=== PATIENT | male | born 1945 | race Caucasian/White ===

== ENCOUNTER 2017-06-02 12:16 | Inpatient (IN) ==
[2017-06-02] MEDS ORDERED: SALINE FLUSH 10ml SYRINGE IVF PRN (12:30)
--- NOTE | 2017-06-02 12:37 | Emergency Department Report ---
General Adult HPI - General Chief complaint: Medical Emergency <Juan Manning 06/02/17 15:07> Stated complaint: poss high bp <Juan Manning Monika 06/02/17 15:07> Time Seen by Provider: 06/02/17 12:19 <Juan Manning Monika 06/02/17 15:07> Source: patient <Lily Fairbanks 06/02/17 12:40> Mode of arrival: ambulatory <Lily Fairbanks 06/02/17 12:40> Limitations: no limitations <Lily Fairbanks 06/02/17 12:40> - History of Present Illness HPI narrative: Pt presents with concerns that his blood pressure has been high. Pt had been driving earlier today and noticed he could see the road and other vehicles but could not read the speedometer. Later while at work pt had difficulty remebering how to perform well known tasks. Pt states he did have a DOMINGO which resolved on its own. He does have a cardiac history with stents placed just 3 months ago and is also a NIIDM Initial BG 36 <Lily Fairbanks 06/02/17 13:09> Onset (ago): hour(s) <Lily Fairbanks Monika 06/02/17 12:40> Consistency: intermittent <Lily Fairbanks 06/02/17 12:40> Treatments prior to arrival: none <Lily Fairbanks 06/02/17 12:40> - Related Data Home Medications Medication Instructions Recorded Confirmed Aspirin [Aspir 81] 81 mg PO HS #0 11/14/09 06/02/17 Lisinopril 40 mg PO DAILY #0 11/14/09 06/02/17 glipiZIDE [Glucotrol] 5 mg PO DAILY #0 11/14/09 06/02/17 Amiodarone HCl [Pacerone] 100 mg PO HS 06/02/17 06/02/17 Atorvastatin [Lipitor] 20 mg PO DAILY 06/02/17 06/02/17 Clotrimazole/Betamethasone Dip 30 ml TP PRN 06/02/17 06/02/17 [Clotrimazole-Betamethasone Lot] Diclofenac Sodium 50 mg PO PRN 06/02/17 06/02/17 Exenatide Weekly Inj [Bydureon] 2 mg SQ Q7D 06/02/17 06/02/17 Furosemide [Lasix] 20 mg PO DAILY 06/02/17 06/02/17 Metformin [Glucophage] 1,000 mg PO BID 06/02/17 06/02/17 Metoprolol Tartrate [Lopressor] 50 mg PO BID 06/02/17 06/02/17 Nisoldipine [Sular] 20 mg PO HS 06/02/17 06/02/17 Tamsulosin [Flomax] 0.4 mg PO HS 06/02/17 06/02/17 Ticagrelor [Brilinta] 90 mg PO BID 06/02/17 06/02/17 <Juan Manning 06/02/17 15:07> Allergies Allergy/AdvReac Type Severity Reaction Status Date / Time No Known Drug Allergies Allergy Unknown Verified 06/02/17 12:46 <Juan Manning 06/02/17 15:07> Review of Systems All systems: reviewed and negative except as stated <Lily Fairbanks 12:40> Constitutional: Denies: weakness <Lily Fairbanks 06/02/17 12:40> Cardiovascular: Reports: other (pedal edema). Denies: chest pain, dyspnea on exertion <Lily Fairbanks 06/02/17 12:40> Respiratory: Denies: cough <Lily Fairbanks 06/02/17 12:40> Gastrointestinal: Denies: nausea, vomiting <Lily Fairbanks 06/02/17 12: 40> Neurological: Reports: headache, confusion <Lily Fairbanks 06/02/17 12: 40> PFS Patient Stated Medical History Macular Degeneration Yes Cardiac Arrhythmia Yes Hypertension Yes Diabetes Mellitus Type 2 Yes Hx Benign Prostatic Yes Hyperplasia Hx Renal Disease Yes <Juan Manning 06/02/17 15:07> Patient Stated Medical History Macular Degeneration Yes Cardiac Arrhythmia Yes Hypertension Yes Diabetes Mellitus Type 2 Yes Hx Benign Prostatic Yes Hyperplasia Hx Renal Disease Yes <Lily Fairbanks 06/02/17 13:09> Physical Exam - Limitations Limitations: no limitations <Lily Fairbanks 06/02/17 12:40> - General General appearance: alert, in no apparent distress <Lily Fairbanks 06/02 12:40> - Normal Exams: Head:: Normocephalic without trauma <Lily Fairbanks 06/02/17 12:40> Eyes:: Pupils are PERRLA w/ EOMI <Lily Fairbanks 06/02/17 12:40> Neck:: Full range of motion <Lily Fairbanks 06/02/17 12:40> Chest/Respirations:: Clear all ochoa, with good airflow, and symmetry bilaterally <Lily Fairbanks 06/02/17 12:40> Cardiovascular:: Regular rate and rhythm (tachy), Pulses 2+ all extremities ( trace pedal edema roseann) <Lily Fairbanks 06/02/17 12:40> Abdomen:: Bowel sounds positive, soft, non-tender, non-distended <Lily Fairbanks 06/02/17 12:40> Musculoskeletal:: No tenderness, or deformity noted, good range of motion, all extremities <Lily Fairbanks 06/02/17 12:40> Integumentary:: No rashes <Lily Fairbanks 06/02/17 12:40> Neurological:: Patient is alert, and oriented <Lily Fairbanks 06/02/17 12:40> Psychiatric:: Patient exhibits, appropriate attention, emotion and affect < Lily Fairbanks 06/02/17 12:40> Course - Consultations Consultation #1: Dr Goldstein <Lily Fairbanks 06/02/17 14:04> Time: 13:40 <Lily Fairbanks 06/02/17 14:04> Vital Signs Temperature 98.4 F 06/02/17 12:18 Pulse Rate 124 H 06/02/17 12:18 Respiratory Rate 18 06/02/17 12:18 Blood Pressure 111/59 06/02/17 12:18 Pulse Oximetry 98 06/02/17 12:18 Temperature 97.3 F 06/02/17 14:35 Pulse Rate 110 H 06/02/17 14:35 Respiratory Rate 16 06/02/17 14:35 Blood Pressure 112/74 06/02/17 14:35 Pulse Oximetry 100 06/02/17 14:35 <Juan Manning - 06/02/17 15:07> Vital Signs Temperature 98.4 F 06/02/17 12:18 Pulse Rate 124 H 06/02/17 12:18 Respiratory Rate 18 06/02/17 12:18 Blood Pressure 111/59 06/02/17 12:18 Pulse Oximetry 98 06/02/17 12:18 Temperature 97.3 F 06/02/17 14:35 Pulse Rate 110 H 06/02/17 14:35 Respiratory Rate 16 06/02/17 14:35 Blood Pressure 112/74 06/02/17 14:35 Pulse Oximetry 100 06/02/17 14:35 <Lily Fairbanks 06/02/17 13:09> Medical Decision Making - [facility] Narrative Medical decision making narrative: Patient with history of chronic intermittent visual difficulties. Patient denies any pain or discomfort. There is no chest pain or shortness of breath. Patient is given a meal and one half amp of D50 intravenously with improvement of blood glucose. Patient is asymptomatic at time of admission to the hospital. Patient is admitted to the hospital in improved condition. No further orders from accepting physician is in agreement with the current plan of management. Patient is in agreement with the current plan of management. <Juan Manning - 06/02/17 15:07> On arrival pt BG 36 pt alert with controlled airway PO given. Repeat BG 56 pt given 1/2 amp D50W, with resulting BG of 99. Pt remains in atrial flutter per telemetry all other vital signs stable. Pt denies secondary symptoms of Flutter. Lab review reveals anemia and renal failure which is consistent with his history. BNP and TropI negative. Assessment and diagnostic findings discussed with Dr Goldstein. Pt to be admitted to medical. Admission discussed with pt and <Lily Fairbanks 06/02/17 14:04> - Differential Diagnosis CVA, Hypoglycemia, Hyperglycemia, TIA <Lily Fairbanks 06/02/17 12:40> - Lab Data Lab results reviewed: Yes: I reviewed the patient's lab results. <Lily Fairbanks 06/02/17 14:04> Result diagrams: 06/02/17 12:45 06/02/17 12:45 <Juan Manning - 06/02/17 15:07> Lab Results 06/02/17 06/02/17 06/02/17 Range/Units 12:45 12:45 13:20 WBC 11.5 H (4.5-11.0) T/MM3 RBC 3.43 L (4.50-5.90) M/MM3 Hgb 9.6 L (13.5-17.5) GM/DL Hct 29.7 L (41-53) % MCV 86.6 (80-100) UM3 MCH 28.0 (26-34) UUG MCHC 32.3 (31-37) GM/DL RDW Std Deviation 49.8 (36.9-50.2) FL Plt Count 272 (130-400) T/MM3 MPV 10.3 (9.4-12.4) UM3 Immature Gran % (Auto) Not performed Neut % (Auto) Not performed Lymph % (Auto) Not performed [place] % (Auto) Not performed Eos % (Auto) Not performed Baso % (Auto) Not performed Neut # Not performed Lymph # Not performed [place] # Not performed Eos # Not performed Baso # Not performed Abs Immat Gran (auto) Not performed Neutrophils % (Manual) 76.0 H (33-66) % Band Neutrophils % 3.0 (0-6) % Lymphocytes % (Manual) 15.0 L (23-45) % Monocytes % (Manual) 6.0 (0-9.0) % Neutrophils # (Manual) 8.7 H (1.8-7.7) T/MM3 Band Neutrophils # 0.3 T/MM3 Lymphocytes # (Manual) 1.7 (1-4.8) T/MM3 Monocytes # (Manual) 0.7 (0-0.8) T/MM3 RBC Morph Comment Normal Turbidity < 20 (0-20) Sodium 145 H (134-144) MEQ/L Potassium 4.2 (3.6-5) MEQ/L Chloride 113 H (98-107) MEQ/L Carbon Dioxide 19 L (22-30) MEQ/L Anion Gap 13 (5-15) MEQ/L BUN 25.0 H (9-20) MG/DL Creatinine 2.0 H (0.8-1.5) MG/DL GFR Calculation 33 BUN/Creatinine Ratio 13 (6-26) RATIO Glucose 32 L* (75-110) MG/DL Calculated Osmolality 279 (261-280) MOSM/KG Calcium 9.3 (8.4-10.2) MG/DL Total Bilirubin 0.50 (0.20-1.30) MG/DL Icterus Index < 2 (0-7) AST 21 (17-59) U/L ALT 32 (21-72) U/L Alkaline Phosphatase 50 (38-126) U/L Troponin I < 0.012 (0-0.12) ng/ml Total Protein 7.0 (6.3-8.2) G/DL Albumin 4.0 (3.5-5.0) G/DL Globulin 3.0 (2.4-3.6) G/DL Albumin/Globulin Ratio 1.3 (1.1-2.2) RATIO Specimen Hemolysis < 15 (0-25) Ur Collection Type Urine, clean catch Urine Color Yellow (YELLOW) Urine Clarity Clear Urine pH 5.5 (5.0-8.0) Ur Specific [place] 1.025 (1.015-1.025) Urine Protein Negative (NEGATIVE) Urine Glucose (UA) Negative (NEGATIVE) Urine Ketones Trace A (NEGATIVE) Urine Occult Blood Negative (NEGATIVE) Urine Nitrate Negative (NEGATIVE) Urine Bilirubin Negative (NEGATIVE) Urine Urobilinogen 0.2 (NORMAL) EU/DL Ur Leukocyte Esterase Negative (NEGATIVE) Urinalysis Comment Microscopic not ind. <Juan Manning - 06/02/17 15:07> Lab Results 06/02/17 06/02/17 06/02/17 Range/Units 12:45 12:45 13:20 WBC 11.5 H (4.5-11.0) T/MM3 RBC 3.43 L (4.50-5.90) M/MM3 Hgb 9.6 L (13.5-17.5) GM/DL Hct 29.7 L (41-53) % MCV 86.6 (80-100) UM3 MCH 28.0 (26-34) UUG MCHC 32.3 (31-37) GM/DL RDW Std Deviation 49.8 (36.9-50.2) FL Plt Count 272 (130-400) T/MM3 MPV 10.3 (9.4-12.4) UM3 Immature Gran % (Auto) Not performed Neut % (Auto) Not performed Lymph % (Auto) Not performed [place] % (Auto) Not performed Eos % (Auto) Not performed Baso % (Auto) Not performed Neut # Not performed Lymph # Not performed [place] # Not performed Eos # Not performed Baso # Not performed Abs Immat Gran (auto) Not performed Neutrophils % (Manual) 76.0 H (33-66) % Band Neutrophils % 3.0 (0-6) % Lymphocytes % (Manual) 15.0 L (23-45) % Monocytes % (Manual) 6.0 (0-9.0) % Neutrophils # (Manual) 8.7 H (1.8-7.7) T/MM3 Band Neutrophils # 0.3 T/MM3 Lymphocytes # (Manual) 1.7 (1-4.8) T/MM3 Monocytes # (Manual) 0.7 (0-0.8) T/MM3 RBC Morph Comment Normal Turbidity < 20 (0-20) Sodium 145 H (134-144) MEQ/L Potassium 4.2 (3.6-5) MEQ/L Chloride 113 H (98-107) MEQ/L Carbon Dioxide 19 L (22-30) MEQ/L Anion Gap 13 (5-15) MEQ/L BUN 25.0 H (9-20) MG/DL Creatinine 2.0 H (0.8-1.5) MG/DL GFR Calculation 33 BUN/Creatinine Ratio 13 (6-26) RATIO Glucose 32 L* (75-110) MG/DL Calculated Osmolality 279 (261-280) MOSM/KG Calcium 9.3 (8.4-10.2) MG/DL Total Bilirubin 0.50 (0.20-1.30) MG/DL Icterus Index < 2 (0-7) AST 21 (17-59) U/L ALT 32 (21-72) U/L Alkaline Phosphatase 50 (38-126) U/L Troponin I < 0.012 (0-0.12) ng/ml Total Protein 7.0 (6.3-8.2) G/DL Albumin 4.0 (3.5-5.0) G/DL Globulin 3.0 (2.4-3.6) G/DL Albumin/Globulin Ratio 1.3 (1.1-2.2) RATIO Specimen Hemolysis < 15 (0-25) Ur Collection Type Urine, clean catch Urine Color Yellow (YELLOW) Urine Clarity Clear Urine pH 5.5 (5.0-8.0) Ur Specific [place] 1.025 (1.015-1.025) Urine Protein Negative (NEGATIVE) Urine Glucose (UA) Negative (NEGATIVE) Urine Ketones Trace A (NEGATIVE) Urine Occult Blood Negative (NEGATIVE) Urine Nitrate Negative (NEGATIVE) Urine Bilirubin Negative (NEGATIVE) Urine Urobilinogen 0.2 (NORMAL) EU/DL Ur Leukocyte Esterase Negative (NEGATIVE) Urinalysis Comment Microscopic not ind. <Lily Fairbanks 06/02/17 13:09> - Radiology Data Radiology results reviewed: Yes: I reviewed the patient's radiology results. < Lily Fairbanks 06/02/17 14:04> CT per [facility] review No acute intracranial hemorrhage <Lily Fairbanks 06/02/17 14:04> - EKG Data EKG #1 Rate: tachycardia <Lily Fairbanks 06/02/17 14:04> Rhythm: A. flutter <Lily Fairbanks 06/02/17 14:04> Disposition Clinical Impression: Hypoglycemia Atrial flutter Qualifiers: Atrial flutter type: typical Qualified Code(s): I48.3 - Typical atrial flutter Anemia Qualifiers: Anemia type: due to chronic kidney disease Chronic kidney disease stage: stage 2 (mild) Qualified Code(s): N18.2 - Chronic kidney disease, stage 2 (mild) Renal failure Qualifiers: Renal failure chronicity: chronic Chronic kidney disease stage: stage 2 (mild) Qualified Code(s): N18.2 - Chronic kidney disease, stage 2 (mild) <Juan Manning 06/02/17 15:07> [place]: [place] [facility] [place] <Juan Manning 06/02/17 15:07> Condition: Stable <Juan Manning 06/02/17 15:07> Instructions: <Juan Manning 06/02/17 15:07> Prescriptions: No Action Aspirin [Aspir 81] 81 mg PO HS #0 Furosemide [Lasix] 20 mg PO DAILY Amiodarone HCl [Pacerone] 100 mg PO HS Metoprolol Tartrate [Lopressor] 50 mg PO BID Exenatide Weekly Inj [Bydureon] 2 mg SQ Q7D Atorvastatin [Lipitor] 20 mg PO DAILY Nisoldipine [Sular] 20 mg PO HS Metformin [Glucophage] 1,000 mg PO BID glipiZIDE [Glucotrol] 5 mg PO DAILY #0 Lisinopril 40 mg PO DAILY #0 Diclofenac Sodium 50 mg PO PRN Ticagrelor [Brilinta] 90 mg PO BID Tamsulosin [Flomax] 0.4 mg PO HS Clotrimazole/Betamethasone Dip [Clotrimazole-Betamethasone Lot] 30 ml TP PRN <Juan Manning 06/02/17 15:07> Referrals: Salty Ching MD [Physician] - <Juan Manning 06/02/17 15: 07> Forms: <Juan Manning 06/02/17 15:07> Time of Disposition: 14:04 <Lily Fairbanks 06/02/17 14:04> - Seen By: midlevel and physician <Lily Fairbanks 06/02/17 14:04>
--- OUTSIDE RECORDS SUMMARY | 2017-06-02 13:04 | External Medical Summary | Summary of Care ---
:1945 Author Name Bella Manning PA-C Address [address], [place] [id number] Care Team Providers Name Role Phone Homero Loving, ALENA, ,, M Ramon Unavailable Unavailable Jessica Bee D.O. Unavailable Unavailable Jessica Bee Primary Care Provider Unavailable Unavailable Unavailable Unavailable Functional Status Functional Status Health Issues Name Dates Details Functional status health issues are not documented Status: Cognitive Status Health Issues Name Dates Details Cognitive status health issues are not documented Status: Problems Name Dates Details Need for prophylactic measure (V07.9, Z41.8) Status: Active Acute postoperative pain (338.18, G89.18) Status: Active Osteoarthritis of knee (715.96, M17.9) Status: Active Peripheral neuropathy (356.9, G62.9) Status: Active Dysuria (788.1, R30.0) Status: Active Orthopedic aftercare for joint replacement (V54.81, Z47.1) Status: Active Edema (782.3, R60.9) Status: Active Tinea corporis (110.5, B35.4) Status: Active Diabetes mellitus (250.00, E11.9) Status: Active Depression (311, F32.9) Status: Active Hypertension (401.9, I10) Status: Active S/P knee replacement (V43.65, Z96.659) Status: Active Edema, lower extremity (782.3, R60.0) Status: Active CKD (chronic kidney disease), stage II (585.2, N18.2) Status: Active BPH (benign prostatic hyperplasia) (600.00, N40.0) Status: Active Incomplete bladder emptying (788.21, R33.9) Status: Active Medications Name Dates Details MetFORMIN HCl - 1000 MG Oral Tablet TAKE 1 TABLET TWICE DAILY WITH MEALS. Refills: 0 Started 20-Apr-2014 ActiveLisinopril 40 MG Oral Tablet TAKE 1 TABLET DAILY. Refills: 0 Started 20-Apr-2014 ActivePioglitazone HCl - 30 MG Oral Tablet TAKE 1 TABLET ONCE DAILY Refills: 0 Started 20-Apr-2014 ActiveNisoldipine ER 40 MG Oral Tablet Extended Release 24 Hour TAKE 1 TABLET DAILY. Refills: 0 Started 20-Apr-2014 ActiveDiclofenac Sodium 75 MG Oral Tablet Delayed Release Takes 1 tablet daily Refills: 0 Started 20-Apr-2014 ActiveAspirin 81 MG Oral Tablet TAKE 1 TABLET DAILY. Refills: 0 Started 20-Apr-2014 ActiveCalcium 600 MG Oral Tablet 2 tabs daily Refills: 0 Started 20-Apr-2014 ActiveMagnesium 400 MG Oral Capsule TAKES 2 TO EQUAL 800 MG Refills: 0 Started 20-Apr-2014 ActiveTamsulosin HCl - 0.4 MG Oral Capsule TAKE 1 CAPSULE BY MOUTH AT BEDTIME Quantity: 90 Refills: 3 Ramon Valentin M.D., ALENA, , Started 29-May-2014 ActiveGlipiZIDE 5 MG Oral Tablet TAKE 1 TABLET DAILY. Refills: 0 Started 31-May-2014 ActiveBethanechol Chloride 25 MG Oral Tablet TAKE 1 TABLET 3 TIMES DAILY. Quantity: 270 Refills: 3 Ramon Valentin M.D., FACS, , Started 01-Jun-2014 ActiveSertraline HCl - 50 MG Oral Tablet TAKE 1 TABLET DAILY. Quantity: 90 Refills: 1 Jessica Bee D.O. Started 10-Jun-2014 ActiveFurosemide 20 MG Oral Tablet TAKE 1 TABLET DAILY. Quantity: 7 Refills: 0 Jessica Bee D.O. Started 13-Oct-2014 ActiveClotrimazole-Betamethasone 1-0.05 % External Cream APPLY AND RUB IN A THIN FILM TO AFFECTED AREAS TWO TIMES A DAY (MORNING AND EVENING) Quantity: 1 Refills: 2 Jessica Bee D.O. Started 13-Oct-2014 [id number] GM Tube Allergies and Adverse Reactions Name Dates Details No Known Drug Allergies Status: Active Procedures Procedure Dates Details History of Cataract Surgery History of Nasal Septal Deviation Repair History of Tonsillectomy With Adenoidectomy HEMOGLOBIN A1C 3507 Ordered:13-Oct-2014 BASIC METABOLIC PROFILE 1210 Ordered:13-Oct-2014 CBC w/ Auto Diff 7150 Ordered:13-Oct-2014 URINE CULTURE 5010 Ordered:01-Dec-2014 ULTRASOUND SOFT TISSUE LOWER EXTREMITY Ordered:13-Oct-2014 Immunization Name Dates Details Immunizations not documented Family History Mother Name Dates Details Family history of diabetes mellitus (V18.0, Z83.3) Status: Active Family history of cardiac disorder (V17.49, Z82.49) Status: Active Father Name Dates Details Family history of cardiac disorder (V17.49, Z82.49) Status: Active Social History Smoking StatusUnknown if ever smoked Vital Signs Date Test Result Details No Known Vitals to report Results Date Description Value Details Results not documented Plan of Care Planned Observations Name Dates Details Planned Goals not documented Goal Planned Encounters Appointment; Provider: Ramon Valentin On 07-Dec-2015 09:45 Appointment; Provider: Jessica Bee On 19-Jan-2015 09:30 Appointment; Provider: Javan Jeter On 26-May-2014 07:45 Instructions Instructions not documented Encounters Appointment; Ramon Valentin On 01-Dec-2014 Encounter Diagnosis: Problem not documented 11:15 Appointment; Jessica Bee On 13-Oct-2014 Encounter Diagnosis: Problem not documented 09:30 Appointment; Javan Jeter On 19-Aug-2014 Encounter Diagnosis: Problem not documented 09:15 Appointment; Jessica Bee On 09-Jul-2014 Encounter Diagnosis: Problem not documented 09:30 Appointment; Javan Jeter On 08-Jul-2014 Encounter Diagnosis: Problem not documented 09:15 Appointment; Ramon Valentin On 07-Jul-2014 Encounter Diagnosis: Problem not documented 11:30 Appointment; Ramon Valentin On 22-Jun-2014 Encounter Diagnosis: Problem not documented 07:00 Appointment; Jessica Bee On 18-Jun-2014 Encounter Diagnosis: Problem not documented 10:00 Appointment; Ramon Valentin On 11-Jun-2014 Encounter Diagnosis: Problem not documented 07:30 Appointment; Ramon Valentin On 11-Jun-2014 Encounter Diagnosis: Problem not documented 07:15 Appointment; Jessica Bee On 10-Jun-2014 Encounter Diagnosis: Problem not documented 10:15 Appointment; Austin Benoit On 10-Jun-2014 Encounter Diagnosis: Problem not documented 09:30 Appointment; Lu Morris On 05-Jun-2014 Encounter Diagnosis: Problem not documented 08:15 Appointment; Ramon Valentin On 04-Jun-2014 Encounter Diagnosis: Problem not documented 07:00 Appointment; Ramon Valentin On 01-Jun-2014 Encounter Diagnosis: Problem not documented 10:00 Appointment; Lu Morris On 31-May-2014 Encounter Diagnosis: Problem not documented 11:00 Appointment; Javan Jeter On 20-Apr-2014 Encounter Diagnosis: Problem not documented 10:30
--- OUTSIDE RECORDS SUMMARY | 2017-06-02 13:04 | External Medical Summary | Summary of Care ---
:1945 Author Name Jessica Bee D.O. Address [address] [facility] [place], [place] [id number] Care Team Providers Name Role Phone Homero Loving, ALENA, ,, M Ramon Unavailable Unavailable Jessica Bee D.O. Unavailable Unavailable Jose Jeter M.D. Unavailable Unavailable Ramon Bee Unavailable Unavailable Unavailable Unavailable Unavailable Functional Status Functional Status Health Issues Name Dates Details Functional status health issues are not documented Status: Cognitive Status Health Issues Name Dates Details Cognitive status health issues are not documented Status: Problems Name Dates Details Need for prophylactic measure (V07.9, Z41.8) Status: Active Acute postoperative pain (338.18, G89.18) Status: Active Osteoarthritis of knee (715.36, M17.9) Status: Active Peripheral neuropathy (356.9, G62.9) Status: Active Dysuria (788.1, R30.0) Status: Active Orthopedic aftercare for joint replacement (V54.81, Z47.1) Status: Active Edema (782.3, R60.9) Status: Active Tinea corporis (110.5, B35.4) Status: Active Post-op pain (338.18, G89.18) Status: Active Incomplete bladder emptying (788.21, R33.9) Status: Active S/P knee replacement (V43.65, Z96.659) Status: Active Status post left partial knee replacement (V43.65, Z96.652) Status: Active Depression (311, F32.9) Status: Active Actinic keratosis (702.0, L57.0) Status: Active Edema, lower extremity (782.3, R60.0) Status: Active Optic atrophy, 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, 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 Pseudophakia of left eye (V43.1, Z96.1) Status: Active Pseudophakia of right eye (V43.1, Z96.1) Status: Active Blurry vision, bilateral (368.8, H53.8) Status: Active 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, 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 Early age-related macular degeneration (362.50, H35.30) Status: Active Presbyopia (367.4, H52.4) Status: Active Primary open angle glaucoma of both eyes, severe stage (365.11, H40.11X3) Status: Active BPH (benign prostatic hyperplasia) (600.00, N40.0) Status: Active CKD (chronic kidney disease), stage II (585.2, N18.2) Status: Active Diabetes mellitus type 2 without retinopathy (250.00, E11.9) Status: Active Hyperlipidemia (272.4, E78.5) Status: Active Hypertension (401.9, I10) Status: Active Type 2 diabetes mellitus with stage 3 chronic kidney disease (250.40, E11.22) Status: Active Medications Name Dates Details MetFORMIN HCl - 1000 MG Oral Tablet TAKE 1 TABLET TWICE DAILY WITH MEALS. Quantity: 180 Refills: 2 Rohit D.O.Jessica Start 20-Apr-2014 Active Lisinopril 40 MG Oral Tablet TAKE 1 TABLET DAILY. Quantity: 90 Refills: 2 Rohit D.O.Jessica Start 20-Apr-2014 Active Nisoldipine ER 20 MG Oral Tablet Extended Release 24 Hour TAKE 2 TABLET Daily Quantity: 60 Refills: 3 Rohit D.Goldie.Jessica Start 20-Apr-2014 Active Diclofenac Sodium 75 MG Oral Tablet Delayed Release TAKE ONE TABLET BY MOUTH ONCE DAILY Quantity: 90 Refills: 0 Rohit D.O.Jessica Start 20-Apr-2014 Active Magnesium 400 MG CAPS TAKES 2 TO EQUAL 800 MG Refills: 0 Start 20-Apr-2014 Active Tamsulosin HCl - 0.4 MG Oral Capsule TAKE 1 CAPSULE BY MOUTH AT BEDTIME Quantity: 90 Refills: 3 Homero Loving, FACS, , , Ramon Smith Start 29-May-2014 Active GlipiZIDE 5 MG Oral Tablet TAKE ONE TABLET BY MOUTH ONCE DAILY Quantity: 90 Refills: 3 Rohit D.O.Jessica Start 31-May-2014 Active Sertraline HCl - 100 MG Oral Tablet TAKE 1 TABLET DAILY. Quantity: 90 Refills: 2 Rohit D.O. RMaegan Grimes Start 10-Jun-2014 Active Furosemide 20 MG Oral Tablet TAKE 1 TABLET DAILY prn swelling legs. Quantity: 90 Refills: 3 Jessica Bee D.O. Start 13-Oct-2014 Active Clotrimazole-Betamethasone 1-0.05 % External Cream APPLY AND RUB IN A THIN FILM TO AFFECTED AREAS TWO TIMES A DAY (MORNING AND EVENING) Quantity: 1 Refills: 2 Rohit Jessica Peter Start 13-Oct-2014 Active 45 GM Tube Hydrocodone-Acetaminophen 10-325 MG Oral Tablet Take 1/2 - 1 tablet PO q 4-6 hrs PRN pain Quantity: 60 Refills: 0 Javan Jeter M.D. Start Active Simvastatin 20 MG Oral Tablet TAKE 1 TABLET Bedtime Quantity: 90 Refills: 3 Jessica Bee D.O. Start Active Bydureon 2 MG Subcutaneous Pen-injector INJECT 2MG SQ ONCE WEEKLY Quantity: 1 Refills: 2 Jessica Bee D.O. Start 06-Jun-2016 Active 1 Pen-injector Pen (4 Pens) Allergies and Adverse Reactions Name Dates Details No Known Drug Allergies (Allergy) Status: Active Procedures Procedure Dates Details History of Cataract Surgery History of Nasal Septal Deviation Repair History of Tonsillectomy With Adenoidectomy History of Total Knee Replacement Right History of Total Knee Replacement Left History of Total Knee Arthroplasty Procedures not documented Immunization Name Dates Details Diphtheria-Tetanus Toxoids 6.7-5 LFU/0.5ML INJ on: 12-Jan-2015 Pneumovax 23 25 MCG/0.5ML Injection Injectable on: 12-Jan-2015 Prevnar 13 Intramuscular Suspension on: 12-Jan-2015 Lot #: [id number] Tdap (Adacel) on: 12-Jan-2015 Lot #: [id number] Zoster (Zostavax) on: 20-Apr-2015 Family History Mother Name Dates Details Family history of diabetes mellitus (V18.0, Z83.3) Status: Active Family history of cardiac disorder (V17.49, Z82.49) Status: Active Father Name Dates Details Family history of cardiac disorder (V17.49, Z82.49) Status: Active Social History Name Dates Details - Status: Smoking Status Name Dates Details Never smoker Vital Signs Date Test Result Details 06-Jun-2016 09:04 BP Systolic 127 mm[Hg] Status: Comments: Location: ; Position: BP Diastolic 58 mm[Hg] Status: Comments: Location: ; Position: Heart Rate 56 /min Status: Comments: Location: ; Weight 219 lb Status: Body Mass Index Calculated 36.44 kg/m2 Status: Body Surface Area Calculated 2.06 m2 Status: Results Date Description Value Details 05-Jun-2016 12:36 Comprehensive Metabolic Panel 1212 Comments: 06/05/16 SODIUM 142 mmol/L Range: 133-144 POTASSIUM 5.3 mmol/L (Above high Range: 3.5-5.1 threshold) CHLORIDE 106 mmol/L Range: 98-110 CARBON DIOXIDE 25.7 mmol/L Range: 23.0-33.0 ANION GAP 10 mmol/L Range: 6-16 BUN 29 mg/dL (Above high Range: 7-18 threshold) CREATININE, SERUM 1.45 mg/dL (Above high Range: 0.70-1.30 threshold) BUN:CREATININE RATIO 20 EST GFR, 58 ml/min (Below low Range: >60 threshold) EST GFR, NON-AFR BAHAMIAN 48 ml/min (Below low Range: >60 threshold) Comments: EST GFR is reported in ml/min per 1.73 m2 of body surface area. ----- GLUCOSE 112 mg/dL (Above high Range: 70-100 threshold) ALK PHOSPHATASE 48 U/L Range: 46-116 TOTAL BILIRUBIN 0.40 mg/dL Range: 0.20-1.00 AST 18 U/L Range: 8-35 ALT 20 U/L Range: 16-63 ALBUMIN 3.6 g/dL Range: 3.4-5.0 TOTAL PROTEIN 7.3 g/dL Range: 6.4-8.2 A/G RATIO 1.0 units Range: 1.0-1.8 CALCIUM 8.6 mg/dL Range: 8.5-10.1 13:03 HEMOGLOBIN A1C 3507 Hemoglobin A1C 7.2 % ESTIMATED AVG. GLUCOSE 160 Plan of Care Name Dates Details Planned Observations Planned Goals not documented Planned Encounters Appointment; Provider: Ramon Valentin M.D.|Marcus|Inder,ALENA|Inder,ALENA, On 05-Dec-2016 09:15 Appointment; Provider: Javan Jeter M.D. On 24-Jul-2016 09:00 Appointment; Provider: Armand Edwards M.D. On 04-Jul-2016 09:15 Interventions Provided Medication ChangesBydureon 2 MG Subcutaneous Pen-injector - StartLabs/Procedures /ImagingDiabetic Foot - Pulse Exam; Done:Diabetic Foot - Sensory Exam; Done: Diabetic Foot - Visual Exam; Done: Instructions Name Dates Details Instructions not documented Encounters Appointment; Armand Edawrds M.D. On Encounter Diagnosis: Problem not documented 11:15 Appointment; Armand Edwards M.D. On Encounter Diagnosis: Problem not documented 10:15 Appointment; Jessica Bee D.O. On Encounter Diagnosis: Problem not documented 13:45 Appointment; Jessica Bee D.O. On 13-Dec-2015 Encounter Diagnosis: Problem not documented 09:45 Appointment; Ramon Valentin M.D.|Marcus|ALENA Loving|ALENA Loving, On 2015 Encounter Diagnosis: Problem not documented 09:45 Appointment; Miguel Sofia D.O. On 13-Sep-2015 Encounter Diagnosis: Problem not documented 10:15 Appointment; Jessica Bee D.O. On 06-Sep-2015 Encounter Diagnosis: Problem not documented 09:15 Appointment; Javan Jeter M.D. On 21-Jul-2015 Encounter Diagnosis: Problem not documented 09:00 Appointment; Javan Jeter M.D. On 09-Jun-2015 Encounter Diagnosis: Problem not documented 09:00 Appointment; Javan Jeter M.D. On 12-May-2015 Encounter Diagnosis: Problem not documented 09:00 Appointment; Jessica Bee D.O. On 09-May-2015 Encounter Diagnosis: Problem not documented 16:00 Appointment; Jessica Bee D.O. On 20-Apr-2015 Encounter Diagnosis: Problem not documented 09:30 Appointment; Jessica Bee D.O. On 12-Jan-2015 Encounter Diagnosis: Problem not documented 09:30 Appointment; Ramon Valentin M.D.|Marcus|ALENA Loving|ALENA Loving, On 2014 Encounter Diagnosis: Problem not documented 11:15 Appointment; Jessica Bee D.O. On 13-Oct-2014 Encounter Diagnosis: Problem not documented 09:30 Appointment; Javan Jeter M.D. On 19-Aug-2014 Encounter Diagnosis: Problem not documented 09:15 Appointment; Jessica Bee D.O. On 09-Jul-2014 Encounter Diagnosis: Problem not documented 09:30 Appointment; Javan Jeter M.D. On 08-Jul-2014 Encounter Diagnosis: Problem not documented 09:15 Appointment; Ramon Valentin M.D.|F.A.C.S.|M.DMaegan,FACS|MYuli,FACS, On 2013 Encounter Diagnosis: Problem not documented 11:30 Appointment; Ramon Valentin M.D.|F.A.C.S.|M.DMaegan,FACS|MYuli,FACS, On 2013 Encounter Diagnosis: Problem not documented 07:00 Appointment; Jessica Bee D.O. On 18-Jun-2014 Encounter Diagnosis: Problem not documented 10:00 Appointment; Ramon Valentin M.D.|F.A.C.S.|M.D.,FACS|M.DMaegan,FACS, On 2013 Encounter Diagnosis: Problem not documented 07:30 Appointment; Ramon Valentin M.D.|F.A.C.S.|M.D.,FACS|M.DMaegan,FACS, On 2013 Encounter Diagnosis: Problem not documented 07:15 Appointment; Jessica Bee D.O. On 10-Jun-2014 Encounter Diagnosis: Problem not documented 10:15 Appointment; Autsin Benoit P.A. On 10-Jun-2014 Encounter Diagnosis: Problem not documented 09:30"
--- OUTSIDE RECORDS SUMMARY | 2017-06-02 13:04 | External Medical Summary | Summary of Care ---
:1945 Author Name Jessica Bee D.O. Address [address], [place] [id number] Care Team Providers Name Role Phone Homero [...] Oral Tablet TAKE 1 TABLET ONCE DAILY Quantity: 90 Refills: 1 Jessica Bee D.O. Started 20-Apr-2014 ActiveNisoldipine ER 40 MG Oral Tablet Extended Release 24 Hour TAKE 1 TABLET DAILY. Quantity: 90 Refills: 1 Jessica Bee D.O. Started 20-Apr-2014 ActiveDiclofenac Sodium 75 MG Oral Tablet Delayed Release Takes 1 tablet daily Quantity: 90 Refills: 1 Jessica Bee D.O. Started 20-Apr-2014 ActiveAspirin 81 MG Oral Tablet TAKE 1 TABLET DAILY. Refills: 0 Started 20-Apr-2014 ActiveCalcium 600 MG Oral Tablet 2 tabs daily Refills: 0 Started 20-Apr-2014 ActiveMagnesium 400 MG Oral Capsule TAKES 2 TO EQUAL 800 MG Refills: 0 Started 20-Apr-2014 ActiveTamsulosin HCl - 0.4 MG Oral Capsule TAKE 1 CAPSULE BY MOUTH AT BEDTIME Quantity: 90 Refills: 3 Ramon Valentin M.D., FACS, , Started 29-May-2014 ActiveGlipiZIDE 5 MG Oral Tablet TAKE 1 TABLET DAILY. Quantity: 90 Refills: 1 Jessica Bee D.O. Started 31-May-2014 ActiveBethanechol Chloride 25 MG Oral Tablet TAKE 1 TABLET 3 TIMES DAILY. Quantity: 270 Refills: 3 Ramon Valentin M.D., FACS, , Started 01-Jun-2014 ActiveSertraline HCl - 50 MG Oral Tablet TAKE 1 TABLET DAILY. Quantity: 90 Refills: 1 Jessica Bee D.O. Started 10-Jun-2014 ActiveFurosemide 20 MG Oral Tablet TAKE 1 TABLET DAILY prn swelling legs. Quantity: 30 Refills: 3 Jessica Bee D.O. Started 13-Oct-2014 ActiveClotrimazole-Betamethasone 1-0.05 % External Cream APPLY AND RUB IN A THIN FILM TO AFFECTED AREAS TWO TIMES A DAY (MORNING AND EVENING) Quantity: 1 Refills: 2 Jessica Bee D.O. Started 13-Oct-2014 Aktkep46 GM Tube Zostavax 16756 UNT/0.65ML Subcutaneous Solution Reconstituted INJECT 0.65 ML Once Quantity: 1 Refills: 0 Jessica Bee D.O. Started 12-Jan-2015 Active1 Solution Reconstituted Vial Allergies and Adverse Reactions Name Dates Details No Known Drug Allergies Status: Active Procedures Procedure Dates Details History of Cataract Surgery History of Nasal Septal Deviation Repair History of Tonsillectomy With Adenoidectomy Procedures not documented Immunization Name Dates Details Immunizations not documented Family History Mother Name Dates Details Family history of diabetes mellitus (V18.0, Z83.3) Status: Active Family history of cardiac disorder (V17.49, Z82.49) Status: Active Father Name Dates Details Family history of cardiac disorder (V17.49, Z82.49) Status: Active Social History Name Dates Details Smoking StatusNever smoker Vital Signs Date Test Result Details 12-Jan-2015 09:49 BP Systolic 128 mm[Hg] Status: BP Diastolic 70 mm[Hg] Status: Heart Rate 70 /min Status: Weight 211.125 lb Status: Height 65 in Status: Body Mass Index Calculated 35.13 kg/m2 Status: Body Surface Area Calculated 2.02 m2 Status: Results Date Description Value Details 11-Jan-2015 10:29 CBC w/ Auto Diff 7150 Comments: appointment with DR Bee 01/19/15 Fastin hours WBC 8.7 K/uL (Better) Range: 4.5-11.0 RBC 4.64 mil/uL Range: 4.20-5.40 (Better) HGB 12.5 g/dL (Below Range: 14.0-18.0 low threshold) HCT 39.3 % (Below low Range: 42.0-53.0 threshold) MCV 84.7 fL (Better) Range: 80.0-99.0 MCH 27.0 pg (Below low Range: 27.3-32.5 threshold) MCHC 31.9 % (Below low Range: 32.0-36.0 threshold) RDW 15.6 % (Above high Range: 11.6-14.8 threshold) PLATELETS 300 K/uL (Better) Range: 150-400 MPV 7.6 fL (Better) Range: 6.0-11.0 %NEUTRO 61.0 % (Better) Range: 37.0-80.0 %LYMPHS 21.4 % (Better) Range: 13.0-50.0 %MONO 6.0 % (Better) Range: 0.0-12.0 %EOS 9.4 % (Above high Range: 0.0-7.0 threshold) %BASO 0.9 % (Better) Range: 0.0-2.5 %EVITA 1.3 % (Better) Range: 0.0-5.0 NEUTRO 5.3 K/uL (Better) Range: 2.0-6.9 LYMPHS 1.9 K/uL (Better) Range: 0.6-3.4 MONOS 0.5 K/uL (Better) Range: 0.0-0.9 EOS 0.8 K/uL (Above Range: 0.0-0.7 high threshold) BASO 0.1 K/uL (Better) Range: 0.0-0.2 10:42 BASIC METABOLIC PROFILE Comments: Fastin hours 1210 SODIUM 136 mmol/L Range: 133-144 (Better) POTASSIUM 4.2 mmol/L Range: 3.5-5.1 (Better) CHLORIDE 100 mmol/L Range: 98-110 (Better) CARBON DIOXIDE 27.3 mmol/L Range: 23.0-33.0 (Better) ANION GAP 9 mmol/L (Better) Range: 6-16 BUN 20 mg/dL (Above Range: 7-18 high threshold) CREATININE, SERUM 1.25 mg/dL (Above Range: 0.43-1.13 high threshold) EST GFR, >60 ml/min Range: >60 (Better) EST GFR, NON-AFR MONEGASQUE 57 ml/min (Below Range: >60 low threshold) Comments: EST GFR is reported in ml/min per 1.73 m2 of body surface area. For -Latvian, please multiple result by 1.2.----- BUN:CREATININE RATIO 16 (Better) GLUCOSE 107 mg/dL (Above Range: 70-100 high threshold) CALCIUM 8.8 mg/dL (Better) Range: 8.5-10.1 12:20 HEMOGLOBIN A1C 3507 Comments: Fastin hours Hemoglobin A1C 6.7 % (Better) ESTIMATED AVG. GLUCOSE 146 (Better) Plan of Care Planned Observations Name Dates Details Planned Goals not documented Goal Planned Encounters Appointment; Provider: Ramon Valentin On 07-Dec-2015 09:45 Appointment; Provider: Javan Jeter On 26-May-2014 07:45 Instructions Instructions not documented Encounters Appointment; Jessica Bee On 12-Jan-2015 Encounter Diagnosis: Problem not documented 09:30 Appointment; Ramon Valentin On 01-Dec-2014 Encounter Diagnosis: [...]
--- OUTSIDE RECORDS SUMMARY | 2017-06-02 13:05 | External Medical Summary | Summary of Care ---
:1945 Author Name Jessica Bee D.O. Address [address] [facility] [place], [place] [id number] Care Team Providers Name Role Phone Luis Valentin Unavailable Unavailable Jessica Bee D.O. Unavailable Unavailable Chuy Edwards M.D. Unavailable Unavailable Ramon Bee Unavailable Unavailable Unavailable Unavailable Unavailable Functional Status Functional Status Health Issues Name Dates Details Functional status health issues are not documented Status: Cognitive Status Health Issues Name Dates Details Cognitive status health issues are not documented Status: Problems Name Dates Details Need for prophylactic measure (V07.9, Z29.9) Status: Active Acute postoperative pain (338.18, G89.18) Status: Active Osteoarthritis of knee (715.36, M17.10) Status: Active Peripheral neuropathy (356.9, G62.9) Status: Active Dysuria (788.1, R30.0) Status: Active Orthopedic aftercare for joint replacement (V54.81, Z47.1) Status: Active Tinea corporis (110.5, B35.4) Status: Active Post-op pain (338.18, G89.18) Status: Active Incomplete bladder emptying (788.21, R33.9) Status: Active Status post left partial knee replacement (V43.65, Z96.652) Status: Active Actinic keratosis (702.0, L57.0) Status: Active Edema, lower extremity (782.3, R60.0) Status: Active Optic atrophy, 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, 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 Blurry vision, bilateral (368.8, H53.8) Status: Active Early age-related macular degeneration (362.50, H35.30) Status: Active Presbyopia (367.4, H52.4) Status: Active Medicare annual wellness visit, initial (V70.0, Z00.00) Status: Active Age-related macular degeneration, dry, both eyes (362.51, H35.3130) Status: Active Pseudophakia of left eye (V43.1, Z96.1) Status: Active Pseudophakia of right eye (V43.1, Z96.1) Status: Active Transient diplopia (368.2, H53.2) Status: Active History of knee replacement (V43.65, Z96.659) Status: Active Bilateral radiating leg pain (729.2, M54.10) Status: Active Neck strain (847.0, S16.1XXA) Status: Active Peripheral vascular disease, asymptomatic (443.9, I73.9) Status: Active Mild mitral regurgitation by prior echocardiogram (424.0, I34.0) Status: Active BPH (benign prostatic hyperplasia) (600.00, N40.0) Status: Active CKD (chronic kidney disease), stage II (585.2, N18.2) Status: Active Hyperlipidemia (272.4, E78.5) Status: Active Hypertension (401.9, I10) Status: Active Abnormal weight loss (783.21, R63.4) Status: Active Depression (311, F32.9) Status: Active 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 Quantity: 180 Refills: 3 Rohit D.O., R. Cornelio Start 20-Apr-2014 Active Lisinopril 40 MG Oral Tablet TAKE 1 TABLET DAILY. Quantity: 90 Refills: 3 Rohit D.O., R. Cornelio Start 20-Apr-2014 Active Nisoldipine ER 20 MG Oral Tablet Extended Release 24 Hour TAKE 1 TABLET ONCE DAILY. Quantity: 90 Refills: 0 Rohit D.O., R. Cornelio Start 20-Apr-2014 Active Sertraline HCl - 100 MG Oral Tablet TAKE 1 TABLET DAILY. Quantity: 90 Refills: 3 Rohit D.O., R. Cornelio Start 10-Jun-2014 Active Furosemide 20 MG Oral Tablet TAKE 1 TABLET DAILY prn swelling legs. Quantity: 90 Refills: 3 Jessica Bee D.O. Start 13-Oct-2014 Active Clotrimazole-Betamethasone 1-0.05 % External Cream APPLY AND RUB IN A THIN FILM TO AFFECTED AREAS TWO TIMES A DAY (MORNING AND EVENING) Quantity: 1 Refills: 2 Jessica Bee D.O. Start 13-Oct-2014 Active 45 GM Tube Simvastatin 20 MG Oral Tablet TAKE 1 TABLET Bedtime Quantity: 90 Refills: 3 Jessica Bee D.O. Start Active Bydureon 2 MG Subcutaneous Pen-injector Inject 2mg Sub-Q Once weekly Quantity: 4 Refills: 2 Jessica Bee D.O. Start 19-Nov-2016 Active Diclofenac Sodium 1 % Transdermal Gel APPLY SPARINGLY TO AFFECTED AREA(S) ONCE TO TWICE DAILY Quantity: 1 Refills: 3 Jessica Bee D.O. Start 15-Aug-2016 Active 100 GM Tube Adult Aspirin EC Low Strength 81 MG Oral Tablet Delayed Release TAKE 1 TABLET DAILY DIRECTED. Refills: 0 Start 15-Aug-2016 Active Brimonidine Tartrate 0.2 % Ophthalmic Solution INSTILL 1 DROP three times daily in both eyes Quantity: 1 Refills: 3 Armand Edwards M.D. Start 05-Nov-2016 Active 10 ML Bottle GlipiZIDE 5 MG Oral Tablet TAKE ONE TABLET BY MOUTH ONCE DAILY Quantity: 90 Refills: 0 Jessica Bee D.O. Start 24-Sep-2016 Active Tamsulosin HCl - 0.4 MG Oral Capsule TAKE 1 CAPSULE BY MOUTH AT BEDTIME Quantity: 90 Refills: 3 LaceyRamon marc Start 29-May-2014 Active Allergies and Adverse Reactions Name Dates Details No Known Drug Allergies (Allergy) Status: Active Past Medical History Name Dates Details History of pneumonia (V12.61, Z87.01) Status: Resolved Procedures Procedure Dates Details History of Cataract Surgery History of Nasal Septal Deviation Repair History of Tonsillectomy With Adenoidectomy History of Total Knee Replacement Right History of Total Knee Replacement Left History of Total Knee Arthroplasty Comprehensive Metabolic Panel 1212 Ordered: 17-Dec-2016 HEMOGLOBIN A1C 3507 Ordered: 17-Dec-2016 PSA ( PROSTATE SPECIFIC ANTIGEN) 3100 Ordered: 22-Nov-2016 Immunization Name Dates Details Diphtheria-Tetanus Toxoids 6.7-5 LFU/0.5ML INJ on: 12-Jan-2015 Pneumovax 23 25 MCG/0.5ML Injection Injectable on: 12-Jan-2015 Prevnar 13 Intramuscular Suspension on: 12-Jan-2015 Lot #: [id number] Tdap (Adacel) on: 12-Jan-2015 Lot #: [id number] Zoster (Zostavax) on: 20-Apr-2015 Influenza on: 19-Oct-2016 Family History Mother Name Dates Details Family history of diabetes mellitus (V18.0, Z83.3) Status: Active Family history of cardiac disorder (V17.49, Z82.49) Status: Active Father Name Dates Details Family history of cardiac disorder (V17.49, Z82.49) Status: Active Social History Name Dates Details - Status: Smoking Status Name Dates Details Never smoker Vital Signs Date Test Result Details No Known Vitals to report Results Date Description Value Details Results not documented Plan of Care Name Dates Details Planned Observations Planned Goals not documented Planned Encounters Appointment; Provider: Jessica Bee D.O. On 26-Jun-2017 09:00 Appointment; Provider: Armand Edwards M.D. On 10:45 Appointment; Provider: Armand Edwards M.D. On 10:30 Appointment; Provider: Jessica Bee D.O. On 19-Dec-2016 08:30 Instructions Name Dates Details Instructions not documented Encounters Appointment; Ramon Valentin M.D.,[facility], On 05-Dec-2016 Encounter Diagnosis: Problem not documented 09:15 Appointment; Armand Edwards M.D. On 28-Nov-2016 Encounter Diagnosis: Problem not documented 11:00 Appointment; Armand Edwards M.D. On 05-Nov-2016 Encounter Diagnosis: Problem not documented 09:15 Appointment; Jessica Bee D.O. On 19-Oct-2016 Encounter Diagnosis: Problem not documented 09:30 Appointment; Jessica Bee D.O. On 12-Sep-2016 Encounter Diagnosis: Problem not documented 08:45 Appointment; Tierra Serna M.D. On 15-Aug-2016 Encounter Diagnosis: Problem not documented 10:15 Appointment; Jessica Bee D.O. On 15-Aug-2016 Encounter Diagnosis: Problem not documented 08:30 Appointment; Jessica Bee D.O. On 08-Aug-2016 Encounter Diagnosis: Problem not documented 08:30 Appointment; Javan Jeter M.D. On 24-Jul-2016 Encounter Diagnosis: Problem not documented 09:00 Appointment; Armand Edwards M.D. On 04-Jul-2016 Encounter Diagnosis: Problem not documented 09:15 Appointment; Jessica Bee D.O. On 20-Jun-2016 Encounter Diagnosis: Problem not documented 09:15 Appointment; Jessica Bee D.O. On 06-Jun-2016 Encounter Diagnosis: Problem not documented 08:45 Appointment; Armand Edwards M.D. On Encounter Diagnosis: Problem not documented 11:15 Appointment; Armand Edwards M.D. On Encounter Diagnosis: Problem not documented 10:15 Appointment; Jessica Bee D.O. On Encounter Diagnosis: Problem not documented 13:45 Appointment; Jessica Bee D.O. On 13-Dec-2015 Encounter Diagnosis: Problem not documented 09:45 Appointment; Ramon Valentin M.D.,[facility], On 07-Dec-2015 Encounter Diagnosis: Problem not documented 09:45 Appointment; [...]
--- OUTSIDE RECORDS SUMMARY | 2017-06-02 13:05 | External Medical Summary ---
:1945 Author Name GENERATED, SYSTEM Care Team Providers Name Role Phone DO PAN ROBERT Primary Care Provider Unavailable Reason For Visit Chief Complaint ABNORAMAL STRESS TEST Social History Social History from 01/20/2017 9:02 AM:Tobacco Use? : Never Smoker Functional Status Functional Status from 01/20/2017 7:25 AM:LOC : AlertOriented To : Person,Place, Time,EventWeight Bearing Status : FullAssist Level : Partial# Assists : 1Functional Status from 01/19/2017 7:50 PM:LOC : AlertOriented To : Person,Place, Time,EventWeight Bearing Status : FullAssist Level : Independent# Assists : 1Functional Status from 01/19/2017 7:25 AM:LOC : AlertOriented To : Person,Place, Time,EventWeight Bearing Status : FullAssist Level : Partial# Assists : 1Functional Status from 01/18/2017 7:48 PM:LOC : AlertOriented To : Person,Place, Time,EventWeight Bearing Status : FullAssist Level : Independent# Assists : 1Functional Status from 01/18/2017 4:15 PM:LOC : AlertOriented To : Person,Place, Time,EventWeight Bearing Status : No wt bearingAssist Level : Partial# Assists : 1 Vital Signs Hospital Vital Signs from 01/20/2017 9:00 AM:Systolic BP (mmHg) : 137Diastolic BP (mmHg) : 75Mean BP (mmHg) : 81Hospital Vital Signs from 01/20/2017 8:00 AM: Heart Rate : 78Systolic BP (mmHg) : 127Diastolic BP (mmHg) : 65Mean BP (mmHg) : 103Hospital Vital Signs from 01/20/2017 7:00 AM:Temp : 98Heart Rate : 59Resp Rate : 13Systolic BP (mmHg) : 128Diastolic BP (mmHg) : 54Mean BP (mmHg) : 84O2 Saturation (%) : 99Hospital Vital Signs from 01/20/2017 6:00 AM:Heart Rate : 64Resp Rate : 21Systolic BP (mmHg) : 136Diastolic BP (mmHg) : 66Mean BP (mmHg) : 93O2 Saturation (%) : 97Hospital Vital Signs from 01/20/2017 5:00 AM:Heart Rate : 61Resp Rate : 21Systolic BP (mmHg) : 147Diastolic BP (mmHg) : 65Mean BP ( mmHg) : 103O2 Saturation (%) : 96Hospital Vital Signs from 01/20/2017 4:00 AM: Heart Rate : 72Resp Rate : 22Systolic BP (mmHg) : 145Diastolic BP (mmHg) : 69Mean BP (mmHg) : 96O2 Saturation (%) : 98Hospital Vital Signs from 01/20/2017 3 :00 AM:Heart Rate : 64Resp Rate : 16Systolic BP (mmHg) : 137Diastolic BP (mmHg) : 63Mean BP (mmHg) : 108O2 Saturation (%) : 98Hospital Vital Signs from 2016 2:00 AM:Heart Rate : 64Resp Rate : 24Systolic BP (mmHg) : 153Diastolic BP ( mmHg) : 65Mean BP (mmHg) : 100O2 Saturation (%) : 93Hospital Vital Signs from 1:00 AM:Heart Rate : 117Resp Rate : 15Systolic BP (mmHg) : 151Diastolic BP (mmHg) : 88Mean BP (mmHg) : 108O2 Saturation (%) : 98Hospital Vital Signs from 01/20/2017 12:00 AM:Heart Rate : 65Resp Rate : 24Systolic BP (mmHg) : 142Diastolic BP (mmHg) : 68Mean BP (mmHg) : 98O2 Saturation (%) : 94Hospital Vital Signs from 01/19/2017 11:00 PM:Heart Rate : 113Resp Rate : 26Systolic BP ( mmHg) : 132Diastolic BP (mmHg) : 81Mean BP (mmHg) : 99O2 Saturation (%) : 94Hospital Vital Signs from 01/19/2017 10:00 PM:Heart Rate : 64Resp Rate : 24Systolic BP (mmHg) : 115Diastolic BP (mmHg) : 55Mean BP (mmHg) : 89O2 Saturation (%) : 95Hospital Vital Signs from 01/19/2017 9:00 PM:Systolic BP (mmHg ) : 135Diastolic BP (mmHg) : 77Mean BP (mmHg) : 95Hospital Vital Signs from 01/19 8:00 PM:Systolic BP (mmHg) : 131Diastolic BP (mmHg) : 68Mean BP (mmHg) : 92Hospital Vital Signs from 01/19/2017 7:00 PM:Temp : 98.3Hospital Vital Signs from 01/19/2017 6:00 PM:Heart Rate : 113Systolic BP (mmHg) : 129Diastolic BP ( mmHg) : 88Mean BP (mmHg) : 107Hospital Vital Signs from 01/19/2017 5:00 PM:Heart Rate : 129Systolic BP (mmHg) : 131Diastolic BP (mmHg) : 82Mean BP (mmHg) : 108Hospital Vital Signs from 01/19/2017 4:00 PM:Heart Rate : 78Systolic BP (mmHg ) : 128Diastolic BP (mmHg) : 65Mean BP (mmHg) : 92O2 Saturation (%) : 94Hospital Vital Signs from 01/19/2017 3:14 PM:Height : 5/4 ft,inTemperature : 99.4 [facility]ospital Vital Signs from 01/19/2017 3:00 PM:Temp : 98.6Heart Rate : 75Systolic BP (mmHg) : 122Diastolic BP (mmHg) : 51Mean BP (mmHg) : 81O2 Saturation (%) : 93Hospital Vital Signs from 01/19/2017 2:00 PM:Heart Rate : 74Hospital Vital Signs from 01/19/2017 1:00 PM:Heart Rate : 83Hospital Vital Signs from 01/19/2017 12:00 PM:Heart Rate : 81Hospital Vital Signs from 2016 11:00 AM:Temp : 97.9Heart Rate : 96Systolic BP (mmHg) : 129Diastolic BP ( mmHg) : 61Mean BP (mmHg) : 90O2 Saturation (%) : 97Hospital Vital Signs from 10:00 AM:Heart Rate : 80Resp Rate : 14Systolic BP (mmHg) : 134Diastolic BP (mmHg) : 68Mean BP (mmHg) : 108O2 Saturation (%) : 99Hospital Vital Signs from 01/19/2017 9:00 AM:Heart Rate : 82Systolic BP (mmHg) : 129Diastolic BP (mmHg ) : 54Mean BP (mmHg) : 76O2 Saturation (%) : 97Hospital Vital Signs from 2016 8:15 AM:Height : 5/4 ft,inTemperature : 99.6 [facility]ospital Vital Signs from 8:00 AM:Heart Rate : 76Resp Rate : 27Systolic BP (mmHg) : 131Diastolic BP (mmHg) : 61Mean BP (mmHg) : 92O2 Saturation (%) : 91Hospital Vital Signs from 01/19/2017 7:00 AM:Temp : 98.2Heart Rate : 74Resp Rate : 21Systolic BP (mmHg ) : 136Diastolic BP (mmHg) : 58Mean BP (mmHg) : 81O2 Saturation (%) : 98Hospital Vital Signs from 01/19/2017 6:00 AM:Heart Rate : 77Resp Rate : 27Systolic BP (mmHg) : 136Diastolic BP (mmHg) : 69Mean BP (mmHg) : 93O2 Saturation (%) : 95Hospital Vital Signs from 01/19/2017 5:45 AM:Heart Rate : 82Resp Rate : 25Systolic BP (mmHg) : 137Diastolic BP (mmHg) : 66Mean BP (mmHg) : 90O2 Saturation (%) : 95Hospital Vital Signs from 01/19/2017 5:30 AM:Heart Rate : 80Resp Rate : 24Systolic BP (mmHg) : 145Diastolic BP (mmHg) : 73Mean BP ( mmHg) : 96O2 Saturation (%) : 96Hospital Vital Signs from 01/19/2017 5:15 AM: Heart Rate : 77Resp Rate : 23Systolic BP (mmHg) : 135Diastolic BP (mmHg) : 67Mean BP (mmHg) : 91O2 Saturation (%) : 97Hospital Vital Signs from 01/19/2017 5 :00 AM:Heart Rate : 82Resp Rate : 12Systolic BP (mmHg) : 137Diastolic BP (mmHg) : 66Mean BP (mmHg) : 90O2 Saturation (%) : 96Hospital Vital Signs from 2016 4:45 AM:Heart Rate : 83Resp Rate : 12Systolic BP (mmHg) : 139Diastolic BP ( mmHg) : 64Mean BP (mmHg) : 89O2 Saturation (%) : 98Hospital Vital Signs from 4:30 AM:Heart Rate : 124Resp Rate : 11Systolic BP (mmHg) : 132Diastolic BP (mmHg) : 90Mean BP (mmHg) : 105O2 Saturation (%) : 95Hospital Vital Signs from 01/19/2017 4:15 AM:Heart Rate : 132Resp Rate : 17Systolic BP (mmHg) : 134Diastolic BP (mmHg) : 73Mean BP (mmHg) : 86O2 Saturation (%) : 99Hospital Vital Signs from 01/19/2017 4:06 AM:Heart Rate : 119Resp Rate : 9O2 Saturation (% ) : 97Hospital Vital Signs from 01/19/2017 4:00 AM:Heart Rate : 76Resp Rate : 23Systolic BP (mmHg) : 129Diastolic BP (mmHg) : 55Mean BP (mmHg) : 89O2 Saturation (%) : 98Hospital Vital Signs from 01/19/2017 3:45 AM:Heart Rate : 79Resp Rate : 18O2 Saturation (%) : 98Hospital Vital Signs from 01/19/2017 3:30 AM:Heart Rate : 76Resp Rate : 24O2 Saturation (%) : 95Hospital Vital Signs from 01/19/2017 3:15 AM:Heart Rate : 77Resp Rate : 7O2 Saturation (%) : 98Hospital Vital Signs from 01/19/2017 3:00 AM:Heart Rate : 73Resp Rate : 16Systolic BP ( mmHg) : 138Diastolic BP (mmHg) : 61Mean BP (mmHg) : 88O2 Saturation (%) : 98Hospital Vital Signs from 01/19/2017 2:45 AM:Heart Rate : 79Resp Rate : 13O2 Saturation (%) : 96Hospital Vital Signs from 01/19/2017 2:30 AM:Heart Rate : 80Resp Rate : 36O2 Saturation (%) : 97Hospital Vital Signs from 01/19/2017 2:15 AM:Heart Rate : 74Resp Rate : 21O2 Saturation (%) : 98Hospital Vital Signs from 01/19/2017 2:00 AM:Heart Rate : 75Resp Rate : 16Systolic BP (mmHg) : 136Diastolic BP (mmHg) : 64Mean BP (mmHg) : 93O2 Saturation (%) : 98[facility]ospital Vital Signs from 01/19/2017 1:45 AM:Heart Rate : 81Resp Rate : 0O2 Saturation (% ) : 98Hospital Vital Signs from 01/19/2017 1:30 AM:Heart Rate : 80Resp Rate : 9O2 Saturation (%) : 98Hospital Vital Signs from 01/19/2017 1:15 AM:Heart Rate : 76Resp Rate : 12O2 Saturation (%) : 97Hospital Vital Signs from 01/19/2017 1:00 AM:Heart Rate : 78Resp Rate : 10Systolic BP (mmHg) : 142Diastolic BP (mmHg) : 63Mean BP (mmHg) : 96O2 Saturation (%) : 99[facility]ospital Vital Signs from 01/19/2017 12:45 AM:Heart Rate : 77Resp Rate : 21O2 Saturation (%) : 99Hospital Vital Signs from 01/19/2017 12:30 AM:Heart Rate : 81Resp Rate : 15O2 Saturation (%) : 98Hospital Vital Signs from 01/19/2017 12:15 AM:Heart Rate : 79Resp Rate : 7O2 Saturation (%) : 99Hospital Vital Signs from 01/19/2017 12:00 AM:Heart Rate : 76Resp Rate : 29Systolic BP (mmHg) : 134Diastolic BP (mmHg) : 62Mean BP (mmHg) : 82O2 Saturation (%) : 97[facility]ospital Vital Signs from 01/18/2017 11:45 PM:Heart Rate : 80Resp Rate : 21O2 Saturation (%) : 95Hospital Vital Signs from 2016 11:30 PM:Heart Rate : 73Resp Rate : 12O2 Saturation (%) : 95Hospital Vital Signs from 01/18/2017 11:15 PM:Heart Rate : 74Resp Rate : 12O2 Saturation (%) : 97Hospital Vital Signs from 01/18/2017 11:00 PM:Temp : 97.9Heart Rate : 76Resp Rate : 22Systolic BP (mmHg) : 140Diastolic BP (mmHg) : 60Mean BP (mmHg) : 86O2 Saturation (%) : 94[facility]ospital Vital Signs from 01/18/2017 10:45 PM:Heart Rate : 73Resp Rate : 14O2 Saturation (%) : 94Hospital Vital Signs from 01/18/2017 10:30 PM:Heart Rate : 72Resp Rate : 27O2 Saturation (%) : 94Hospital Vital Signs from 01/18/2017 10:15 PM:Heart Rate : 72Resp Rate : 24O2 Saturation (%) : 95Hospital Vital Signs from 01/18/2017 10:00 PM:Heart Rate : 74Resp Rate : 23Systolic BP ( mmHg) : 139Diastolic BP (mmHg) : 62Mean BP (mmHg) : 92O2 Saturation (%) : 97[facility]ospital Vital Signs from 01/18/2017 9:45 PM:Heart Rate : 79Resp Rate : 12O2 Saturation (%) : 97Hospital Vital Signs from 01/18/2017 9:30 PM:Heart Rate : 73Resp Rate : 9O2 Saturation (%) : 96Hospital Vital Signs from 01/18/2017 9:15 PM :Heart Rate : 72Resp Rate : 13O2 Saturation (%) : 97[facility]ospital Vital Signs from 08/2017 9:00 PM:Heart Rate : 73Resp Rate : 9Systolic BP (mmHg) : 135Diastolic BP (mmHg) : 58Mean BP (mmHg) : 84[facility]ospital Vital Signs from 01/18/2017 8:45 PM: Heart Rate : 75Resp Rate : 19Systolic BP (mmHg) : 126Diastolic BP (mmHg) : 49Mean BP (mmHg) : 68Hospital Vital Signs from 01/18/2017 8:30 PM:Heart Rate : 75Resp Rate : 20Systolic BP (mmHg) : 128Diastolic BP (mmHg) : 58Mean BP (mmHg) : 82[facility]ospital Vital Signs from 01/18/2017 8:15 PM:Heart Rate : 76Resp Rate : 0Systolic BP (mmHg) : 128Diastolic BP (mmHg) : 55Mean BP (mmHg) : 78[facility]ospital Vital Signs from 01/18/2017 8:00 PM:Heart Rate : 75Resp Rate : 8Systolic BP (mmHg ) : 123Diastolic BP (mmHg) : 50Mean BP (mmHg) : 77[facility]ospital Vital Signs from 01/18 7:45 PM:Heart Rate : 76Resp Rate : 24Hospital Vital Signs from 01/18/2017 7 :30 PM:Heart Rate : 79Resp Rate : 25Hospital Vital Signs from 01/18/2017 7:15 PM: Heart Rate : 77Resp Rate : 19Systolic BP (mmHg) : 137Diastolic BP (mmHg) : 49Mean BP (mmHg) : 91Hospital Vital Signs from 01/18/2017 7:00 PM:Temp : 97.5Heart Rate : 71Resp Rate : 15Systolic BP (mmHg) : 129Diastolic BP (mmHg) : 63Mean BP (mmHg) : 77[facility]ospital Vital Signs from 01/18/2017 5:30 PM:Heart Rate : 67Resp Rate : 13Systolic BP (mmHg) : 124Diastolic BP (mmHg) : 52Mean BP (mmHg) : 71O2 Saturation (%) : 96Hospital Vital Signs from 01/18/2017 5:15 PM:Heart Rate : 71Resp Rate : 22Systolic BP (mmHg) : 122Diastolic BP (mmHg) : 66Mean BP ( mmHg) : 79O2 Saturation (%) : 100[facility]ospital Vital Signs from 01/18/2017 5:00 PM: Heart Rate : 79Resp Rate : 10Systolic BP (mmHg) : 122Diastolic BP (mmHg) : 62Mean BP (mmHg) : 94O2 Saturation (%) : 99[facility]ospital Vital Signs from 01/18/2017 4 :45 PM:Heart Rate : 73Resp Rate : 19Systolic BP (mmHg) : 131Diastolic BP (mmHg) : 53Mean BP (mmHg) : 76O2 Saturation (%) : 98Hospital Vital Signs from 2016 4:30 PM:Heart Rate : 67Resp Rate : 23Systolic BP (mmHg) : 110Diastolic BP ( mmHg) : 56Mean BP (mmHg) : 72O2 Saturation (%) : 99[facility]ospital Vital Signs from 08/2017 4:15 PM:Heart Rate : 68Resp Rate : 13Systolic BP (mmHg) : 116Diastolic BP (mmHg) : 51Mean BP (mmHg) : 82O2 Saturation (%) : 99Hospital Vital Signs from 01/18/2017 4:00 PM:Heart Rate : 80Resp Rate : 15Systolic BP (mmHg) : 110Diastolic BP (mmHg) : 46Mean BP (mmHg) : 78O2 Saturation (%) : 100Hospital Vital Signs from 01/18/2017 3:45 PM:Heart Rate : 69Resp Rate : 9Systolic BP (mmHg ) : 104Diastolic BP (mmHg) : 55Mean BP (mmHg) : 58O2 Saturation (%) : 99[facility]ospital Vital Signs from 01/18/2017 3:30 PM:Temp : 97.1Heart Rate : 65Resp Rate : 13Systolic BP (mmHg) : 117Diastolic BP (mmHg) : 58Mean BP (mmHg) : 95O2 Saturation (%) : 98 Results Chemistry from 01/19/2017 4:33 [id number] MMOL/L (136-145 MMOL/L) POTASSIUM3.6 MMOL/L (3.5-5.1 MMOL/L) QTFWDJEW484 MMOL/L (98-107 MMOL/L) XZJ236.1 MMOL/L (21.0-32.0 MMOL/L) *ANION GAP9.9 MMOL/L (8.0-16.0 MMOL/L) BUN17 MG/DL (7-18 MG/DL) CREATININE1.50 MG/DL H (0.70-1.30 MG/DL) *BUN/CREATININE RATIO11.3 (9.1-17.0 ) DTPSKOO518 MG/DL H (65-99 MG/DL) *GFR EST NON AFR RCNQYJCI16 ML/MIN (Reference Range: not available) *GFR EST AFR AMER54 ML/MIN (Reference Range: not available) CALCIUM8.8 MG/DL (8.5-10.1 MG/DL) QBOBIAYGIEN967 MG/DL (50-199 MG/DL) WJFCVPJGSKTBS13 MG/DL (0-149 MG/DL) HDL CPHUBFEOSMA85 MG/DL L (40-60 MG/DL) *LDL (CALCULATED) CHOL51 MG/DL (0-99 MG/DL)Hematology from 01/19/2017 4:33 AMWBC12.3 X10e3/UL H (3.6-11.2 X10e3/UL) RBC3.96 X10e6/UL L (4.06-5.63 X10e6/UL) FKGNBAZTJM03.0 G/DL L (12.5-16.3 G/DL) XSGZUNPEFU42.4 % L (36.7-47.1 %) *MCV84.4 FL (80.0-100.0 FL) *MCH27.8 PG (27.0-33.0 PG) *MCHC32.9 G/DL (32.0-36.0 G/DL) *RDW15.7 % (12.3-17.0 %) *RDWSD46.4 (37.1-47.8 ) RJBAKWPD075 X10e3/UL (159-386 X10e3/UL) *MPV8.2 FL (7.4-10.4 FL) AUTOMATED DIFFPERFORMED (Reference Range: not available) SEGS76.4 % (Reference Range: not available) *ZMCWWEWRSTH01.3 % (Reference Range: not available) *BXAPNGRYZ51.0 % (Reference Range: not available) *EOSINOPHILS2.8 % (Reference Range: not available) *BASOPHILS0.5 % (Reference Range: not available) *ABSOLUTE NEUTROPHILS9.40 X10e3/UL H (1.80-7.80 X10e3/UL) *ABSOLUTE LYMPHOCYTES1.30 X10e3/UL (1.00-3.00 X10e3/UL) *ABSOLUTE MONOCYTES1.20 X10e3/UL H (0.30-1.00 X10e3/UL) *ABSOLUTE EOSINOPHILS0.30 X10e3/UL (0.00-0.50 X10e3/UL) *ABSOLUTE BASOPHILS0.10 X10e3/UL (0.00-0.20 X10e3/UL)Hematology from 01/18/2017 12:25 PMWBC9.3 X10e3/UL (3.6-11.2 X10e3/UL) RBC3.85 X10e6/UL L (4.06-5.63 X10e6/UL) LXFUYLKTSO65.6 G/DL L (12.5-16.3 G/DL) XWSBQIDEOF67.5 % L (36.7-47.1 %) *MCV84.5 FL (80.0-100.0 FL) *MCH27.6 PG (27.0-33.0 PG) *MCHC32.7 G/DL (32.0-36.0 G/DL) *RDW15.9 % (12.3-17.0 %) *RDWSD47.7 (37.1-47.8 ) VXICDBTM857 X10e3/UL (159-386 X10e3/UL) *MPV8.1 FL (7.4-10.4 FL) AUTOMATED DIFFPERFORMED (Reference Range: not available) SEGS69.5 % (Reference Range: not available) *QLAUYWAXSQD09.4 % (Reference Range: not available) *ESOKYQBFS24.5 % (Reference Range: not available) *EOSINOPHILS3.7 % (Reference Range: not available) *BASOPHILS0.9 % (Reference Range: not available) *ABSOLUTE NEUTROPHILS6.40 X10e3/UL (1.80-7.80 X10e3/UL) *ABSOLUTE LYMPHOCYTES1.20 X10e3/UL (1.00-3.00 X10e3/UL) *ABSOLUTE MONOCYTES1.20 X10e3/UL H (0.30-1.00 X10e3/UL) *ABSOLUTE EOSINOPHILS0.30 X10e3/UL (0.00-0.50 X10e3/UL) *ABSOLUTE BASOPHILS0.10 X10e3/UL (0.00-0.20 X10e3/UL) Problems Encounter Diagnosis Acute Pain Status:Active.Cardiac Catheterization Status:Active.Fall Risk Status: Active.Infection Risk Status:Active.Placement of Stent in Coronary Artery Status :Active.Additional Problems Mobility Impairment Comment:Problem resolved by [facility] Workflow upon Discharge , Status:Resolved.Osteoarthritis of Knee Comment:Problem resolved by [facility] Workflow upon Discharge, Status:Resolved.Replacement of Total Knee Joint Comment :Problem resolved by [facility] Workflow upon Discharge, Status:Resolved. Encounters Encounter Diagnosis Acute Pain Status:Active.Cardiac Catheterization Status:Active.Fall Risk Status: Active.Infection Risk Status:Active.Placement of Stent in Coronary Artery Status :Active. Plan of Care Follow-up Appointments from 01/20/2017 9:02 AM:#1 Office appointment: : Dr. Lambert # 1 : [facility]: [address] [place], [place]- or Treatment Plan from 01/19/2017 6:43 AM:Care Management Note : BODY,TD,TH,BUTTON,INPUT,SELECT,TEXTAREA{FONT-SIZE: 10pt; FONT-FAMILY: Grannis,Helvetica; COLOR: black;} P,DIV,UL,OL,BLOCKQUOTE{MARGIN-BOTTOM: 0px; MARGIN-TOP: 0px;} BODY{MARGIN: 5px;} Patient admitted under outpatient status to the ICU s/p PTCA w/ stent placement to the LAD. Patient will require staged intervention at a later date. Patient is outpatient status appropriate at this time. Procedures Completed Arthroplasty of Knee, Left, by MD RHIANNA PIEDRA, on 04/27/2015 7:42 AMCompleted Procedure Code: 81.54 Procedure Name: not valued, on 04/27/2015 12: 00 AMCompleted Arthroplasty of Knee, Right, by MD RHIANNA PIEDRA, on 05/26/2014 8:18 AMCompleted Procedure Code: 81.54 Procedure Name: not valued, on 2013 12:00 AMCompleted Procedure Code: 04.81 Procedure Name: not valued, on 12:00 AM Immunizations No immunizations administered or ordered. Hospital Course Hospital Discharge Instructions How to care for yourself at home from 01/20/2017 9:02 AM:Discharge Activity : Activity as tolerated,May Shower,No Tub BathDischarge Diet : As before hospitalizationDischarge Wound Care : Keep dressings dry,Change dressings as necessary,Notify your physician if thefollowing develops: redness, swelling, drainage or color of drainage changes, odor or increased pain.Call your doctor if: : Fever over 101 F or severe chills,Chest pain or other unexplained symptoms ,Tingling or numbness develops,A sudden increase or decrease in weight,You have persistent or worsening symptoms,If you have Heart Failure and you gain 3 pounds within 1 week or your symptoms worsen. (Weigh at home tomorrow morning) Specific Discharge Teaching Instructions provided: : YesSpecific Discharge Teaching Instructions Reviewed: : Cardiology Post Catherization InstructionsDischarge on Warfarin : No Allergies, Adverse Reactions, Alerts This section is abrasives sales representative of the current allergy information, at the time of the CCD generation. In the case of regeneration of the CCD, the allergy information may not reflect the state of known allergies at the time of the CCD' s subject visit. No Latex Allergy.No IV Contrast Allergy.No Known Drug Allergies. Medication It is the responsibility of the patient or patient abrasives sales representative to confirm the list of medicationswith either the patient's personal care provider or the patient's follow-up care provider to ensure the patient has an appropriate list of medications to take at home. Discharge medicationsNew medicationsamiodarone (Pacerone) 100 mg Tablet, Ordered By: ALEC UMANZOR APRN Directions: 1 tablet oral daily atorvastatin (Lipitor) 20 mg Tablet, Ordered By: ALEC UMANZOR APRN Directions: 1 tablet oral daily at bedtime ticagrelor (Brilinta) 90 mg Tablet, Ordered By: ALEC UMANZOR APRN Directions: 1 tablet oral twice a day metoprolol tartrate 25 mg Tablet, Ordered By: ALEC UMANZOR APRN Directions: 1 tablet oral twice a day Continued medicationsaspirin (Aspir-Low) 81 mg tablet,delayed release (DR/EC), Ordered By: ALEC UMANZOR APRN Directions: 1 tablet oral daily Additional Instructions: 4 tabs brimonidine 0.2 % Drops, Ordered By: ALEC UMANZOR APRN Directions: 1 drop ophthalmic, both eyes twice a day clotrimazole-betamethasone 1 %-0.05 % Cream, Ordered By: ALEC UMANZOR APRN Directions: 1 application topical twice a day diclofenac sodium 1 % Gel, Ordered By: ALEC UMANZOR APRN Directions: 1 application topical twice a day exenatide microspheres (Bydureon) 2 mg suspension,extended rel recon, Ordered By : ALEC UMANZOR APRN Directions: 1 mL subcutaneous weekly furosemide 20 mg Tablet, Ordered By: ALEC UMANZOR APRN Directions: 1 tablet oral daily glipiZIDE 5 mg Tablet, Ordered By: ALEC UMANZOR APRN Directions: 1 tablet oral daily lisinopril 40 mg Tablet, Ordered By: ALEC UMANZOR APRN Directions: 1 tablet oral daily metFORMIN 1,000 mg Tablet, Ordered By: ALEC UMANZOR APRN Directions: 1 tablet oral twice a day with or after meal sertraline 50 mg Tablet, Ordered By: ALEC UMANZOR APRN Directions: 1 tablet oral daily tamsuLOSIN 0.4 mg capsule,extended release 24hr, Ordered By: ALEC UMANZOR APRN Directions: 1 capsule oral daily Stopped medicationsacetylcysteine 600 mg Capsule Directions: 1 capsule oral twice a day simvastatin 20 mg Tablet Directions: 1 tablet oral daily at bedtime nisoldipine 40 mg Tablet Extended Release 24 hr Directions: 1 tablet oral daily
--- OUTSIDE RECORDS SUMMARY | 2017-06-02 13:05 | External Medical Summary | Summary of Care ---
:1945 Author Name Jessica Bee D.O. Address [address], [place] [id number] Care Team Providers Name Role Phone Homero [...] Active Tinea corporis (110.5, B35.4) Status: Active S/P knee replacement (V43.65, Z96.659) Status: Active Edema, lower extremity (782.3, R60.0) Status: Active Incomplete bladder emptying (788.21, R33.9) Status: Active CKD (chronic kidney disease), stage II (585.2, N18.2) Status: Active Depression (311, F32.9) Status: Active Diabetes mellitus (250.00, E11.9) Status: Active Hypertension (401.9, I10) Status: Active BPH (benign prostatic hyperplasia) (600.00, N40.0) Status: Active Medications Name Dates Details MetFORMIN [...] Refills: 2 Jessica Bee D.O. Started 13-Oct-2014 Oijfmu52 GM Tube Zostavax [id number] UNT/0.65ML Subcutaneous Solution Reconstituted INJECT 0.65 ML [...] Name Dates Details Diphtheria-Tetanus Toxoids 6.7-5 LFU/0.5ML Intramuscular Injectable Administered on:12-Jan-2015 Pneumovax 23 25 MCG/0.5ML Injection Injectable Administered on:12-Jan-2015 Prevnar 13 Intramuscular Suspension Administered on:12-Jan-2015 Lot #: [id number] Tdap (Adacel) Administered on:12-Jan-2015 Lot #: [id number] Family History Mother Name Dates Details Family [...] ml/min Range: >60 (Better) EST GFR, NON-AFR [place] 57 ml/min (Below Range: >60 low threshold) Comments: EST GFR is reported in ml/min per 1.73 m2 of body surface area. For -[place], please multiple result by 1.2.----- BUN:CREATININE RATIO [...] 07-Dec-2015 09:45 Appointment; Provider: Jessica Bee On 27-Apr-2015 09:30 Appointment; Provider: Javan Jeter On 26-May-2014 [...] Diagnosis: Problem not documented 09:15 Appointment; Ramon Valnetin On 07-Jul-2014 Encounter Diagnosis: Problem not documented [...]
--- OUTSIDE RECORDS SUMMARY | 2017-06-02 13:05 | External Medical Summary | Summary of Care ---
:1945 Author Name Tierra Seran M.D. Address [address] [place], [place] [id number] Care Team Providers Name Role Phone Jessica Bee D.O. Unavailable Unavailable Chuy Edwards M.D. Unavailable Unavailable Ramon Bee Unavailable Unavailable Unavailable Unavailable Unavailable Functional Status Functional Status Health Issues Name Dates Details Functional status health issues are not documented Status: Cognitive Status Health Issues Name Dates Details Cognitive status health issues are not documented Status: Problems Name Dates Details Edema, lower extremity (782.3, R60.0) Status: Active Mild mitral regurgitation by prior echocardiogram (424.0, I34.0) Status: Active BPH (benign prostatic hyperplasia) (600.00, N40.0) Status: Active Depression (311, F32.9) Status: Active Hyperlipidemia (272.4, E78.5) Status: Active Hypertension (401.9, I10) Status: Active 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 Quantity: 180 Refills: 3 Rohit D.O., Jessica Grimes Start 20-Apr-2014 Active Lisinopril 40 MG Oral Tablet TAKE 1 TABLET DAILY. Quantity: 90 Refills: 3 Rohit D.O., Jessica Grimes Start 20-Apr-2014 Active Nisoldipine ER 20 MG Oral Tablet Extended Release 24 Hour TAKE 1 TABLET ONCE DAILY. Quantity: 90 Refills: 0 Rohit D.O., Jessica Grimes Start 20-Apr-2014 Active Tamsulosin HCl - 0.4 MG Oral Capsule TAKE 1 CAPSULE BY MOUTH AT BEDTIME Quantity: 90 Refills: 3 Rohit D.O., R. Cornelio Start 29-May-2014 Active Sertraline HCl - 100 MG Oral Tablet TAKE 1 TABLET DAILY. Quantity: 90 Refills: 3 Rohit D.Jessica Delacruz Start 10-Jun-2014 Active Furosemide 20 MG Oral Tablet TAKE 1 TABLET DAILY prn swelling legs. Quantity: 90 Refills: 3 Rohit Morgan.Jessica Delacruz Start 13-Oct-2014 Active Clotrimazole-Betamethasone 1-0.05 % External Cream APPLY AND RUB IN A THIN FILM TO AFFECTED AREAS TWO TIMES A DAY (MORNING AND EVENING) Quantity: 1 Refills: 2 Jessica Bee D.O. Start 13-Oct-2014 Active 45 GM Tube Simvastatin 20 MG Oral Tablet TAKE 1 TABLET Bedtime Quantity: 90 Refills: 3 Rohit Morgan.Jessica Delacruz Start Active Bydureon 2 MG Subcutaneous Pen-injector [...] ONCE DAILY Quantity: 90 Refills: 0 Rohit Morgan.Jessica Delacruz Start 20-Dec-2016 Active Allergies and Adverse Reactions Name Dates [...] Replacement Left History of Total Knee Arthroplasty Cardiology Precert (within facility) Ordered: 19-Dec-2016 Cardiology Precert (outside facility) Ordered: 16-Jan-2017 CP Echo Ordered: 15-Jan-2017 CP Stress Echo Ordered: 15-Jan-2017 PSA ( PROSTATE SPECIFIC ANTIGEN) 3100 Ordered: 22-Nov-2016 BASIC METABOLIC PROFILE 1210 Ordered: 19-Dec-2016 LIPID PROFILE 1184 Ordered: 19-Dec-2016 HEMOGLOBIN A1C 3507 Ordered: 19-Dec-2016 Quant Microalbumin 1106 Ordered: 19-Dec-2016 Immunization Name Dates Details Diphtheria-Tetanus Toxoids 6.7-5 LFU/0.5ML INJ on: 12-Jan-2015 Pneumovax 23 25 MCG/0.5ML Injection Injectable on: 12-Jan-2015 Prevnar 13 Intramuscular Suspension on: 12-Jan-2015 Lot #: [id number] Tdap (Adacel) on: 12-Jan-2015 Lot #: [id number] Zoster (Zostavax) on: 20-Apr-2015 Influenza on: 19-Oct-2016 [...] smoker Vital Signs Date Test Result Details 16-Jan-2017 10:50 BP Systolic 132 mm[Hg] Status: Comments: Location: ; Position: BP Diastolic 58 mm[Hg] Status: Comments: Location: ; Position: Heart Rate 80 /min Status: Comments: Location: ; Weight 197 lb Status: Physical Findings 96 Status: Comments: O2 Saturation Body Mass Index Calculated 32.78 kg/m2 Status: Body Surface Area Calculated 1.97 m2 Status: 19-Dec-2016 08:31 BP Systolic 111 mm[Hg] Status: Comments: Location: ; Position: BP Diastolic 52 mm[Hg] Status: Comments: Location: ; Position: Heart Rate 70 /min Status: Comments: Location: ; Height 65 in Status: Weight 193 lb Status: Body Mass Index Calculated 32.12 kg/m2 Status: Body Surface Area Calculated 1.95 m2 Status: Results Date Description Value Details 18-Dec-2016 16:38 Comprehensive Metabolic Panel 1212 SODIUM 138 mmol/L Range: 133-144 POTASSIUM 4.1 mmol/L Range: 3.5-5.1 CHLORIDE 105 mmol/L Range: 98-110 CARBON DIOXIDE 27.2 mmol/L Range: 23.0-33.0 ANION GAP 6 mmol/L Range: 6-16 BUN 24 mg/dL (Above high Range: 7-18 threshold) CREATININE, SERUM 1.59 mg/dL (Above high Range: 0.70-1.30 threshold) BUN:CREATININE RATIO 15 EST GFR, 52 ml/min (Below low Range: >60 threshold) EST GFR, NON-AFR CITIZEN OF [place] 43 ml/min (Below low Range: >60 threshold) Comments: EST GFR is reported in ml/min per 1.73 m2 of body surface area. ----- GLUCOSE 96 mg/dL Range: 70-100 ALK PHOSPHATASE 60 U/L Range: 46-116 TOTAL BILIRUBIN 0.40 mg/dL Range: 0.20-1.00 AST 16 U/L Range: 8-35 ALT 14 U/L (Below low Range: 16-63 threshold) ALBUMIN 3.7 g/dL Range: 3.4-5.0 TOTAL PROTEIN 7.6 g/dL Range: 6.4-8.2 A/G RATIO 0.9 units (Below low Range: 1.0-1.8 threshold) CALCIUM 8.4 mg/dL (Below low Range: 8.5-10.1 threshold) 16:49 HEMOGLOBIN A1C 3507 Hemoglobin A1C 6.6 % ESTIMATED AVG. GLUCOSE 143 15-Jan-2017 16:14 CP Echo Y Linked PDF Report Available for Review by Clicking ImageLink Button 16:18 CP Stress Echo Y Linked PDF Report Available for Review by Clicking ImageLink Button 16-Jan-2017 14:17 BASIC METABOLIC PROFILE 1210 SODIUM 141 mmol/L Range: 133-144 POTASSIUM 3.9 mmol/L Range: 3.5-5.1 CHLORIDE 104 mmol/L Range: 98-110 CARBON DIOXIDE 27.3 mmol/L Range: 23.0-33.0 ANION GAP 10 mmol/L Range: 6-16 BUN 26 mg/dL (Above high Range: 7-18 threshold) CREATININE, SERUM 1.51 mg/dL (Above high Range: 0.70-1.30 threshold) EST GFR, 56 ml/min (Below low Range: >60 threshold) EST GFR, NON-AFR CITIZEN OF [place] 46 ml/min (Below low Range: >60 threshold) Comments: EST GFR is reported in ml/min per 1.73 m2 of body surface area. ----- BUN:CREATININE RATIO 17 GLUCOSE 102 mg/dL (Above high Range: 70-100 threshold) CALCIUM 8.6 mg/dL Range: 8.5-10.1 Plan of Care Name Dates Details Planned Observations Planned Goals not documented Planned Encounters Appointment; Provider: Jessica Bee D.O. On 26-Jun-2017 09:00 Appointment; Provider: Jessica Bee D.O. On 09:15 Appointment; Provider: Armand Edwards M.D. On 10:45 Appointment; Provider: Armand Edwards M.D. On 10:30 Appointment; Provider: Rafy Babcock M.D. On 18-Jan-2017 15:00 Appointment; Provider: Tierra Serna M.D. On 18-Jan-2017 08:00 Interventions Provided Labs/Procedures/ImagingBASIC METABOLIC PROFILE 1210; Done: [id number] 11:51AM Instructions Name Dates Details Instructions not documented Encounters Appointment; Tierra Serna M.D. On 16-Jan-2017 Encounter Diagnosis: Problem not documented 10:30 Appointment; Jessica Bee D.O. On 19-Dec-2016 Encounter Diagnosis: Problem not documented 08:30 Appointment; Ramon Valentin M.D.,[facility], On 05-Dec-2016 Encounter Diagnosis: Problem not [...] Problem not documented 09:45 Appointment; Ramon Valentin M.D.,[facility], On 07-Dec-2015 Encounter Diagnosis: Problem not [...]
--- OUTSIDE RECORDS SUMMARY | 2017-06-02 13:05 | External Medical Summary | Summary of Care ---
:1945 Author Name Jessica Bee D.O. Address 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) Status: Active ERM OS (epiretinal membrane, left eye) (362.56, H35.372) Status: Active 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 Quantity: 180 Refills: 3 Rohit D.O.Jessica Start 20-Apr-2014 Active Lisinopril 40 MG Oral Tablet TAKE 1 TABLET DAILY. Quantity: 90 Refills: 3 Rohit D.O. RMaegan Grimes Start 20-Apr-2014 Active Nisoldipine ER 20 MG Oral Tablet Extended Release 24 Hour TAKE 1 TABLET ONCE DAILY. Quantity: 90 Refills: 0 Rohit D.O.Jessica Start 20-Apr-2014 Active Tamsulosin HCl - 0.4 MG Oral Capsule TAKE 1 CAPSULE BY MOUTH AT BEDTIME Quantity: 90 Refills: 3 Ramon Valentin Start 29-May-2014 Active GlipiZIDE 5 MG Oral Tablet TAKE ONE TABLET BY MOUTH ONCE DAILY Quantity: 90 Refills: 0 Jessica Bee D.O. Start 24-Sep-2016 Active Sertraline HCl - 100 MG Oral Tablet TAKE 1 TABLET DAILY. Quantity: 90 Refills: 3 Jessica Bee D.O. Start 10-Jun-2014 Active Furosemide 20 MG Oral [...] M.D. Start 05-Nov-2016 Active 10 ML Bottle Allergies and Adverse Reactions Name Dates Details No Known Drug Allergies (Allergy) Status: Active Past Medical History Name Dates Details History of pneumonia (V12.61, Z87.01) Status: Resolved Procedures Procedure Dates Details History of Cataract Surgery History of Nasal Septal Deviation Repair History of Tonsillectomy With Adenoidectomy History of Total Knee Replacement Right History of Total Knee Replacement Left History of Total Knee Arthroplasty PSA ( PROSTATE SPECIFIC ANTIGEN) 3100 Ordered: 22-Nov-2016 Immunization Name Dates Details Diphtheria-Tetanus Toxoids 6.7-5 LFU/0.5ML INJ on: 12-Jan-2015 Pneumovax 23 25 MCG/0.5ML Injection Injectable on: 12-Jan-2015 Prevnar 13 Intramuscular Suspension on: 12-Jan-2015 Lot #: [id number] Tdap (Adacel) on: 12-Jan-2015 Lot #: [id number] Zoster (Zostavax) on: 20-Apr-2015 Influenza on: 19-Oct-2016 [...] smoker Vital Signs Date Test Result Details 19-Dec-2016 08:31 BP Systolic 111 mm[Hg] Status: [...] low Range: >60 threshold) EST GFR, NON-AFR [place] 43 ml/min (Below low Range: >60 threshold) [...] A1C 6.6 % ESTIMATED AVG. GLUCOSE 143 Plan of Care Name Dates Details Planned Observations Planned Goals not documented Planned Encounters Appointment; Provider: Jessica Bee D.O. On 26-Jun-2017 09:00 Appointment; Provider: Jessica Bee D.O. On 09:15 Appointment; Provider: Armand Edwards M.D. On 10:45 Appointment; Provider: Armand Edwards M.D. On 10:30 Instructions Name Dates Details Instructions not documented Encounters Appointment; Ramon Valentin M.D.,[facility], On 05-Dec-2016 Encounter Diagnosis: Problem not [...] Problem not documented 09:45 Appointment; Ramon Valentin M.D.,[facility], On 07-Dec-2015 Encounter Diagnosis: Problem not [...]
--- OUTSIDE RECORDS SUMMARY | 2017-06-02 13:05 | External Medical Summary | Summary of Care ---
:1945 Author Name Jose Jeter M.D. Address [address] [place], [place] [id number] Care Team Providers Name Role Phone Homero Loving, ALENA, ,, M Ramon Unavailable Unavailable Jessica Bee D.O. Unavailable Unavailable Jose Jeter M.D. Unavailable Unavailable Ramon Bee Primary Care Provider Unavailable Unavailable Unavailable [...] Active Tinea corporis (110.5, B35.4) Status: Active Edema, lower extremity (782.3, R60.0) Status: Active BPH (benign prostatic hyperplasia) (600.00, N40.0) Status: Active Post-op pain (338.18, G89.18) Status: Active CKD (chronic kidney disease), stage II (585.2, N18.2) Status: Active Diabetes mellitus (250.00, E11.9) Status: Active Hypertension (401.9, I10) Status: Active Pre-operative exam (V72.84, Z01.818) Status: Active Incomplete bladder emptying (788.21, R33.9) Status: Active Depression (311, F32.9) Status: Active S/P knee replacement (V43.65, Z96.659) Status: Active Status post left partial knee replacement (V43.65, Z96.652) Status: Active Medications Name Dates Details MetFORMIN HCl - 1000 MG Oral Tablet TAKE 1 TABLET TWICE DAILY WITH MEALS. Quantity: 180 Refills: 2 Jessica Bee D.O. Started 20-Apr-2014 ActiveLisinopril 40 MG Oral Tablet TAKE 1 TABLET DAILY. Quantity: 90 Refills: 2 Jessica Bee D.O. Started 20-Apr-2014 ActivePioglitazone HCl - 30 MG [...] FACS, , Started 01-Jun-2014 ActiveSertraline HCl - 100 MG Oral Tablet TAKE 1 TABLET DAILY. Quantity: 30 Refills: 2 Jessica Bee D.O. Started 10-Jun-2014 ActiveFurosemide 20 MG Oral Tablet TAKE 1 TABLET DAILY prn swelling legs. Quantity: 30 Refills: 3 Jessica Bee D.O. Started 13-Oct-2014 ActiveClotrimazole-Betamethasone 1-0.05 % External Cream APPLY AND RUB IN A THIN FILM TO AFFECTED AREAS TWO TIMES A DAY (MORNING AND EVENING) Quantity: 1 Refills: 2 Jessica Bee D.O. Started 13-Oct-2014 [id number] GM Tube Zostavax [id number] UNT/0.65ML Subcutaneous Solution Reconstituted INJECT 0.65 ML Once Quantity: 1 Refills: 0 Jessica Bee D.O. Started 12-Jan-2015 Active1 Solution Reconstituted Vial Hydrocodone-Acetaminophen 10-325 MG Oral Tablet Take 1/2 - 1 tablet PO q 4-6 hrs PRN pain Quantity: 60 Refills: 0 Javan Jeter M.D. Started Active Allergies and Adverse Reactions Name Dates Details No Known Drug Allergies Status: Active Procedures Procedure Dates Details History of Cataract Surgery History of Nasal Septal Deviation Repair History of Tonsillectomy With Adenoidectomy History of Total Knee Replacement Right History of Total Knee Replacement Left ORTHO KNEE LEFT (3 VIEWS ONLY) Ordered:11-May-2015 Immunization Name Dates Details Diphtheria-Tetanus Toxoids 6.7-5 LFU/0.5ML Intramuscular Injectable Administered on:12-Jan-2015 Pneumovax 23 25 MCG/0.5ML Injection Injectable Administered on:12-Jan-2015 Prevnar 13 Intramuscular Suspension Administered on:12-Jan-2015 Lot #: [id number] Tdap (Adacel) Administered on:12-Jan-2015 Lot #: [id number] Zoster (Zostavax) Administered on:20-Apr-2015 Family History Mother Name Dates Details Family [...] 07-Dec-2015 09:45 Appointment; Provider: Javan Jeter On 21-Jul-2015 09:00 Appointment; Provider: Javan Jeter On 27-Apr-2015 07:00 Appointment; Provider: Javan Jeter On 26-May-2014 07:45 Instructions Instructions not documented Encounters Appointment; Javan Jeter On 09-Jun-2015 Encounter Diagnosis: Problem not documented 09:00 Appointment; Javan Jeter On 12-May-2015 Encounter Diagnosis: Problem not documented 09:00 Appointment; Jessica Bee On 09-May-2015 Encounter Diagnosis: Problem not documented 16:00 Appointment; Jessica Bee On 20-Apr-2015 Encounter Diagnosis: Problem not documented 09:30 Appointment; Jessica Bee On 12-Jan-2015 Encounter Diagnosis: [...]
--- OUTSIDE RECORDS SUMMARY | 2017-06-02 13:05 | External Medical Summary | Summary of Care ---
:1945 Author Name Jessica Bee D.O. Address [address] [place], [place] [address] Care Team Providers Name Role Phone Luis Valentin Unavailable Unavailable Jessica Bee D.O. 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 Quantity: 180 Refills: 3 Rohit Morgan.Jessica Delacruz Start 20-Apr-2014 Active Lisinopril 40 MG Oral Tablet TAKE 1 TABLET DAILY. Quantity: 90 Refills: 3 Rohit DJessica Marcus Start 20-Apr-2014 Active Nisoldipine ER 20 MG Oral Tablet Extended Release 24 Hour TAKE 1 TABLET ONCE DAILY. Quantity: 90 Refills: 0 Jessica Bee D.O. Start 20-Apr-2014 Active Tamsulosin HCl - 0.4 MG Oral Capsule TAKE 1 CAPSULE BY MOUTH AT BEDTIME Quantity: 90 Refills: 3 Ramon Vlaentin Start 29-May-2014 Active GlipiZIDE 5 MG Oral Tablet TAKE ONE TABLET BY MOUTH ONCE DAILY Quantity: 90 Refills: 0 Jessica Bee D.O. Start 24-Sep-2016 Active Sertraline HCl - 100 MG Oral Tablet TAKE 1 TABLET DAILY. Quantity: 90 Refills: 3 Rohit D.Jessica Delacruz Start 10-Jun-2014 Active Furosemide 20 MG Oral Tablet TAKE 1 TABLET DAILY prn swelling legs. Quantity: 90 Refills: 3 Rohit D.Jessica Delacruz Start 13-Oct-2014 Active Clotrimazole-Betamethasone 1-0.05 % External Cream APPLY AND RUB IN A THIN FILM TO AFFECTED AREAS TWO TIMES A DAY (MORNING AND EVENING) Quantity: 1 Refills: 2 Rohit D.Jessica Delacruz Start 13-Oct-2014 Active 45 GM Tube Simvastatin 20 MG Oral Tablet TAKE 1 TABLET Bedtime Quantity: 90 Refills: 3 Rohit DJessica Marcus Start Active Bydureon 2 MG Subcutaneous Pen-injector INJECT 2MG SQ ONCE WEEKLY Quantity: 1 Refills: 2 Rohit DJessica Marcus Start 06-Jun-2016 Active 1 Pen-injector Pen (4 Pens) Diclofenac Sodium 1 % Transdermal Gel APPLY SPARINGLY TO AFFECTED AREA(S) ONCE TO TWICE DAILY Quantity: 1 Refills: 3 Rohit D.Jessica Delacruz Start 15-Aug-2016 Active 100 GM Tube Adult Aspirin EC Low Strength 81 MG Oral Tablet Delayed Release TAKE 1 TABLET DAILY DIRECTED. Refills: 0 Start 15-Aug-2016 Active Allergies and Adverse Reactions Name Dates [...] Replacement Left History of Total Knee Arthroplasty XRay CHEST-PA & LAT Ordered: 18-Oct-2016 Immunization Name Dates Details Diphtheria-Tetanus Toxoids 6.7-5 LFU/0.5ML INJ on: 12-Jan-2015 Pneumovax 23 25 MCG/0.5ML Injection Injectable on: 12-Jan-2015 Prevnar 13 Intramuscular Suspension on: 12-Jan-2015 Lot #: [id number] Tdap (Adacel) on: 12-Jan-2015 Lot #: [id number] Zoster (Zostavax) on: 20-Apr-2015 Influenza on: 19-Oct-2016 [...] smoker Vital Signs Date Test Result Details 19-Oct-2016 09:42 BP Systolic 121 mm[Hg] Status: Comments: Location: ; Position: BP Diastolic 68 mm[Hg] Status: Comments: Location: ; Position: Heart Rate 73 /min Status: Comments: Location: ; Height 65 in Status: Weight 191 lb Status: Body Mass Index Calculated 31.78 kg/m2 Status: Body Surface Area Calculated 1.94 m2 Status: Results Date Description Value Details 19-Oct-2016 09:45 Diabetic Eye Exam No diabetic retinopathy Range: 0 Plan of Care Name Dates Details Planned Observations Planned Goals not documented Planned Encounters Appointment; Provider: Jessica Bee D.O. On 26-Jun-2017 09:00 Appointment; Provider: Jessica Bee D.O. On 19-Dec-2016 08:30 Appointment; Provider: Ramon Valentin M.D.,[facility], On 05-Dec-2016 09:15 Appointment; Provider: Armand Edwards M.D. On 05-Nov-2016 09:15 Interventions Provided Medication ChangesNisoldipine ER 20 MG Oral Tablet Extended Release 24 Hour - Renew Instructions Name Dates Details Instructions not documented Encounters Appointment; Jessica Bee D.O. On 12-Sep-2016 Encounter [...] Problem not documented 09:45 Appointment; Ramon Valentin M.D.,[facility], On 07-Dec-2015 Encounter Diagnosis: Problem not documented [...] Problem not documented 09:30 Appointment; Ramon Valentin M.D.,[facility], On 01-Dec-2014 Encounter Diagnosis: Problem not documented 11:15
--- OUTSIDE RECORDS SUMMARY | 2017-06-02 13:06 | External Medical Summary | Summary of Care ---
:1945 Author Name Homero Loving, ALENA, ,Luis Address [address] [place], [place] [address] Care Team Providers Name Role Phone Homero Loving FACS, ,Luis Unavailable Unavailable Jessica Bee D.O. 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 Quantity: 180 Refills: 2 Jessica Bee D.O. Started 20-Apr-2014 ActiveLisinopril 40 MG Oral Tablet TAKE 1 TABLET DAILY. Quantity: 90 Refills: 2 Jessica Bee D.O. Started 20-Apr-2014 ActivePioglitazone HCl - 30 MG Oral Tablet TAKE 1 TABLET ONCE DAILY Quantity: 90 Refills: 3 Jessica Bee D.O. Started 20-Apr-2014 ActiveNisoldipine ER 40 MG Oral Tablet Extended Release 24 Hour TAKE ONE TABLET BY MOUTH ONCE DAILY Quantity: 90 Refills: 0 Jessica Bee D.O. Started 20-Apr-2014 ActiveDiclofenac Sodium 75 MG Oral Tablet Delayed Release Takes 1 tablet daily Quantity: 90 Refills: 0 Jessica Bee D.O. Started 20-Apr-2014 ActiveAspirin 81 [...] 29-May-2014 ActiveGlipiZIDE 5 MG Oral Tablet TAKE ONE TABLET BY MOUTH ONCE DAILY Quantity: 90 Refills: 3 Jessica Bee D.O. Started 31-May-2014 ActiveSertraline HCl - 100 MG Oral Tablet TAKE 1 TABLET DAILY. Quantity: 90 Refills: 2 Jessica Bee D.O. Started 10-Jun-2014 ActiveFurosemide 20 MG Oral Tablet TAKE 1 TABLET DAILY prn swelling legs. Quantity: 90 Refills: 3 Jessica Bee D.O. Started 13-Oct-2014 ActiveClotrimazole-Betamethasone 1-0.05 % External Cream APPLY AND RUB IN A THIN FILM TO AFFECTED AREAS TWO TIMES A DAY (MORNING AND EVENING) Quantity: 1 Refills: 2 Jessica Bee D.O. Started 13-Oct-2014 [id number] GM Tube Zostavax 65343 UNT/0.65ML Subcutaneous Solution Reconstituted INJECT 0.65 ML [...] 13 Intramuscular Suspension Administered on:12-Jan-2015 Lot #: [id number] Tdap (Adacel) Administered on:12-Jan-2015 Lot #: [id number] Zoster (Zostavax) Administered on:20-Apr-2015 Family History Mother [...] Planned Encounters Appointment; Provider: Ramon Valentin On 05-Dec-2016 09:15 Appointment; Provider: Javan Jeter On 24-Jul-2016 09:00 Appointment; Provider: Miguel Sofia On 09:15 Appointment; Provider: Javan Jeter On 27-Apr-2015 07:00 Appointment; Provider: Javan Jeter On 26-May-2014 07:45 Instructions Instructions not documented Encounters Appointment; Jessica Bee On 13-Dec-2015 Encounter Diagnosis: Problem not documented 09:45 Appointment; Ramon Valentin On 07-Dec-2015 Encounter Diagnosis: Problem not documented 09:45 Appointment; Miguel Sofia On 13-Sep-2015 Encounter Diagnosis: Problem not documented 10:15 Appointment; Jessica Bee On 06-Sep-2015 Encounter Diagnosis: Problem not documented 09:15 Appointment; Javan Jeter On 21-Jul-2015 Encounter Diagnosis: Problem not documented 09:00 Appointment; Javan Jeter On 09-Jun-2015 Encounter Diagnosis: [...]
--- OUTSIDE RECORDS SUMMARY | 2017-06-02 13:06 | External Medical Summary | Summary of Care ---
:1945 Author Name Jessica Bee D.O. Address [address], [place] [id number] Care Team Providers Name Role Phone Homero [...] Edema, lower extremity (782.3, R60.0) Status: Active Depression (311, F32.9) Status: Active BPH (benign prostatic hyperplasia) (600.00, [...] Refills: 2 Jessica Bee D.O. Started 13-Oct-2014 Ppusbt25 GM Tube Zostavax 98910 UNT/0.65ML Subcutaneous Solution Reconstituted INJECT 0.65 ML [...] Adenoidectomy History of Total Knee Replacement Right Procedures not documented Immunization Name Dates Details Diphtheria-Tetanus Toxoids 6.7-5 LFU/0.5ML Intramuscular Injectable Administered on:12-Jan-2015 Pneumovax 23 25 MCG/0.5ML Injection Injectable Administered on:12-Jan-2015 Prevnar 13 Intramuscular Suspension Administered on:12-Jan-2015 Lot #: [id number] Tdap (Adacel) Administered on:12-Jan-2015 Lot #: [id number] Zoster (Zostavax) Administered on:20-Apr-2015 Family History Mother Name Dates Details Family history of diabetes mellitus (V18.0, Z83.3) Status: Active Family history of cardiac disorder (V17.49, Z82.49) Status: Active Father Name Dates Details Family history of cardiac disorder (V17.49, Z82.49) Status: Active Social History Name Dates Details Smoking StatusNever smoker Vital Signs Date Test Result Details 20-Apr-2015 09:19 BP Systolic 136 mm[Hg] Status: BP Diastolic 68 mm[Hg] Status: Heart Rate 68 /min Status: Height 65 in Status: Weight 213.3125 lb Status: Body Mass Index Calculated 35.5 kg/m2 Status: Body Surface Area Calculated 2.03 m2 Status: Results Date Description Value Details 19-Apr-2015 BASIC METABOLIC PROFILE Comments: Items were attached to this order: C7 Fastin hours 10:28 1210 SODIUM 139 mmol/L (Better) Range: 133-144 POTASSIUM 4.7 mmol/L (Better) Range: 3.5-5.1 CHLORIDE 103 mmol/L (Better) Range: 98-110 CARBON DIOXIDE 26.6 mmol/L (Better) Range: 23.0-33.0 ANION GAP 9 mmol/L (Better) Range: 6-16 BUN 22 mg/dL (Above high Range: 7-18 threshold) CREATININE, SERUM 1.25 mg/dL (Better) Range: 0.70-1.30 Comments: Please note new reference ranges effective 2015.----- EST GFR, >60 ml/min Range: >60 (Better) EST GFR, NON-AFR SYRIAN 57 ml/min (Below low Range: >60 threshold) Comments: EST GFR is reported in ml/min per 1.73 m2 of body surface area. For -Nauruan, please multiple result by 1.2.----- BUN:CREATININE RATIO 18 (Better) GLUCOSE 128 mg/dL (Above Range: 70-100 high threshold) CALCIUM 9.4 mg/dL (Better) Range: 8.5-10.1 10:28 LIPID PROFILE 1184 Comments: Items were attached to this order: C7 Fastin hours CHOLESTEROL 167 mg/dL (Better) Range: <200 TRIGLYCERIDES 67 mg/dL (Better) Range: 30-200 HDL Cholesterol 44 mg/dL (Better) Range: >39 NON HDL CHOLESTEROL 123 (Better) CARDIAC RSK FACTOR 3.8 units (Below low Range: 4.4-5.0 threshold) LDL - CALCULATED 110 mg/dL (Better) Range: 0-130 10:28 Iron Panel with TIBC 1612 Comments: Items were attached to this order: C7 Fastin hours IRON 78 ug/dL (Better) Range: 65-175 TOTAL IRON BIND. CAPACITY 358 ug/dL (Better) Range: 250-450 % IRON SATURATION 22 % (Better) Range: 20-55 11:54 HEMOGLOBIN A1C 3507 Comments: Fastin hours Hemoglobin A1C 6.8 % (Better) ESTIMATED AVG. GLUCOSE 148 (Better) 14:50 ECG/ EKG Preop Electro CardioGram ECG waiting for interpretation, click ImageLink button to view/confirm the study. (Better) 15:06 XRay CHEST-PA & LAT Comments: Exam Date: 04/19/2015 14: 36Dictation Date: 04/19/2015 15:06 X CHEST PA & LAT (Better) 20-Apr-2015 CBC w/ Auto Diff 7150 Comments: Items were attached to this order: CBCManual differential indicated. Fastin hours 10:08 WBC 7.9 K/uL (Better) Range: 4.5-11.0 RBC 4.46 mil/uL (Better) Range: 4.20-5.40 HGB 12.4 g/dL (Below low Range: 14.0-18.0 threshold) HCT 38.5 % (Below low Range: 42.0-53.0 threshold) MCV 86.2 fL (Better) Range: 80.0-99.0 MCH 27.7 pg (Better) Range: 27.3-32.5 MCHC 32.1 % (Better) Range: 32.0-36.0 RDW 14.7 % (Better) Range: 11.6-14.8 PLATELETS 269 K/uL (Better) Range: 150-400 MPV 9.4 fL (Better) Range: 6.0-11.0 Plan of Care Planned Observations Name Dates Details Planned Goals not documented Goal Planned Encounters Appointment; Provider: Ramon Valentin On 07-Dec-2015 09:45 Appointment; Provider: Javan Jeter On 21-Jul-2015 09:00 Appointment; Provider: Javan Jeter On 09-Jun-2015 09:00 Appointment; Provider: Javan Jeter On 12-May-2015 09:00 Appointment; Provider: Jessica Bee On 27-Apr-2015 09:30 Appointment; Provider: Javan Jeter On 27-Apr-2015 07:00 Appointment; Provider: Javan Jeter On 26-May-2014 07:45 Instructions Instructions not documented Encounters Appointment; Jessica Bee On 20-Apr-2015 Encounter Diagnosis: [...]
--- OUTSIDE RECORDS SUMMARY | 2017-06-02 13:06 | External Medical Summary | Summary of Care ---
:1945 Author Name Jessica Bee D.O. Address [address], [place] [id number] Care Team Providers Name Role Phone Homero [...] Active Post-op pain (338.18, G89.18) Status: Active Medications Name Dates Details MetFORMIN [...] Refills: 2 Jessica Bee D.O. Started 13-Oct-2014 [id number] GM Tube Zostavax 93223 UNT/0.65ML Subcutaneous Solution Reconstituted INJECT 0.65 ML [...] 13 Intramuscular Suspension Administered on:12-Jan-2015 Lot #: [id number] Tdap (Adacel) Administered on:12-Jan-2015 Lot #: [id number] Family History Mother Name Dates Details Family [...] Javan Jeter On 27-Apr-2015 07:00 Appointment; Provider: Jessica Bee On 20-Apr-2015 09:30 Appointment; Provider: Javan Jeter On 26-May-2014 [...] Encounter Diagnosis: Problem not documented 08:15 Appointment; aRmon Valentin On 04-Jun-2014 Encounter Diagnosis: Problem not documented 07:00 Appointment; Ramon Valentin On 01-Jun-2014 Encounter Diagnosis: Problem not documented 10:00 Appointment; Lu Morris On 31-May-2014 Encounter Diagnosis: Problem not documented 11:00 Appointment; Javan Jeter On 20-Apr-2014 Encounter Diagnosis: Problem not documented 10:30
--- OUTSIDE RECORDS SUMMARY | 2017-06-02 13:06 | External Medical Summary ---
:1945 Author Name GENERATED, SYSTEM Care Team Providers Name Role Phone DO PAN ROBERT Primary Care Provider Unavailable Reason For Visit Chief Complaint STENT 01/18/17 Social History Functional Status Vital Signs Results Problems Encounter Diagnosis No relevant problems exist. Additional Problems Acute Pain Comment:Problem resolved by [facility] Workflow upon Discharge, Status: Resolved.Cardiac Catheterization Comment:Problem resolved by [facility] Workflow upon Discharge, Status:Resolved.Fall Risk Comment:Problem resolved by [facility] Workflow upon Discharge, Status:Resolved.Fall Risk Comment:Problem resolved by [facility] Workflow upon Discharge, Status:Resolved.Infection Risk Comment:Problem resolved by [facility] Workflow upon Discharge, Status:Resolved.Infection Risk Comment:Problem resolved by [facility] Workflow upon Discharge, Status: Resolved.Mobility Impairment Comment:Problem resolved by [facility] Workflow upon Discharge, Status:Resolved.Osteoarthritis of Knee Comment:Problem resolved by [facility] Workflow upon Discharge, Status:Resolved.Placement of Stent in Coronary Artery Comment:Problem resolved by [facility] Workflow upon Discharge, Status: Resolved.Replacement of Total Knee Joint Comment:Problem resolved by [facility] Workflow upon Discharge, Status:Resolved. Encounters Encounter Diagnosis No relevant problems exist. Plan of Care Procedures Completed Procedure Code: 1928666 Procedure Name: not valued, on 01/18/2017 12: 00 AMCompleted Arthroplasty of Knee, Left, by MD RHIANNA PIEDRA, on 04/27/2015 7 :42 AMCompleted Procedure Code: 81.54 Procedure Name: not valued, on 04/27/2015 12:00 AMCompleted Arthroplasty of Knee, Right, by MD RHIANNA PIEDRA, on 2013 8:18 AMCompleted Procedure Code: 81.54 Procedure Name: not valued, on 05/26 12:00 AMCompleted Procedure Code: 04.81 Procedure Name: not valued, on 12:00 AM Immunizations No immunizations administered or ordered. Hospital Course Hospital Discharge Instructions Allergies, Adverse Reactions, Alerts This section is corporate sales representative of the current allergy information, at the time of the CCD generation. In the case of regeneration of the CCD, the allergy information may not reflect the state of known allergies at the time of the CCD' s subject visit. Latex Allergy has not been assessed.IV Contrast Allergy has not been assessed.No Known Drug Allergies. Medication Medication reconciliation has not been performed.
--- OUTSIDE RECORDS SUMMARY | 2017-06-02 13:06 | External Medical Summary | Summary of Care ---
:1945 Author Name Jessica Bee D.O. Address [address], [place] [phone] Care Team Providers Name Role Phone Homero [...] Active Post-op pain (338.18, G89.18) Status: Active Pre-operative exam (V72.84, Z01.818) Status: [...] (benign prostatic hyperplasia) (600.00, N40.0) Status: Active Actinic keratosis (702.0, L57.0) Status: Active Edema, lower extremity (782.3, R60.0) Status: Active Medications Name Dates Details MetFORMIN [...] ONE TABLET BY MOUTH ONCE DAILY Quantity: 30 Refills: 0 Jessica Bee D.O. Started 31-May-2014 ActiveBethanechol Chloride [...] Refills: 2 Jessica Bee D.O. Started 13-Oct-2014 [id number] GM Tube Zostavax 16464 UNT/0.65ML Subcutaneous Solution Reconstituted INJECT 0.65 ML [...] Right History of Total Knee Replacement Left BASIC METABOLIC PROFILE 1210 Ordered:06-Sep-2015 HEMOGLOBIN A1C 3507 Ordered:06-Sep-2015 Immunization Name Dates Details Diphtheria-Tetanus Toxoids 6.7-5 LFU/0.5ML Intramuscular Injectable Administered on:12-Jan-2015 Pneumovax 23 25 MCG/0.5ML Injection Injectable Administered on:12-Jan-2015 Prevnar 13 Intramuscular Suspension Administered on:12-Jan-2015 Lot #: [id number] Tdap (Adacel) Administered on:12-Jan-2015 Lot #: [id number] Zoster (Zostavax) Administered on:20-Apr-2015 Family History Mother Name Dates Details Family history of diabetes mellitus (V18.0, Z83.3) Status: Active Family history of cardiac disorder (V17.49, Z82.49) Status: Active Father Name Dates Details Family history of cardiac disorder (V17.49, Z82.49) Status: Active Social History Name Dates Details Smoking StatusNever smoker Vital Signs Date Test Result Details 06-Sep-2015 09:27 BP Systolic 138 mm[Hg] Status: BP Diastolic 64 mm[Hg] Status: Heart Rate 80 /min Status: Weight 208 lb Status: Body Mass Index Calculated 34.61 kg/m2 Status: Body Surface Area Calculated 2.01 m2 Status: Results Date Description Value Details 06-Sep-2015 00:00 24 HR MICROALBUMIN, URINE 1126 MICROALBUMIN, 24 HRS (Better) Plan of Care Planned Observations Name Dates Details Planned Goals not documented Goal Planned Encounters Appointment; Provider: Javan Jeter On 24-Jul-2016 09:00 Appointment; Provider: Jessica Bee On 13-Dec-2015 09:45 Appointment; Provider: Ramon Valentin On 07-Dec-2015 09:45 Appointment; Provider: Miguel Sofia On 13-Sep-2015 10:15 Appointment; Provider: Javan Jeter On 27-Apr-2015 07:00 Appointment; Provider: Javan Jeter On 26-May-2014 07:45 Instructions Instructions not documented Encounters Appointment; Jessica Bee On 06-Sep-2015 Encounter Diagnosis: [...]
--- OUTSIDE RECORDS SUMMARY | 2017-06-02 13:06 | External Medical Summary | Summary of Care ---
:1945 Author Name Tierra Serna M.D. Address [address], [place] [phone] Care Team Providers Name Role Phone Tierra Serna M.D. Unavailable Unavailable Jessica Bee D.O. Unavailable Unavailable [...] Pre-procedure lab exam (V72.63, Z01.812) Status: Active Status post insertion of drug-eluting stent into left anterior descending (LAD ) artery (V45.82, Z95.5) Status: Active Presence of drug coated stent in left circumflex coronary artery (V45.82, Z95.5 ) Status: Active Medications Name Dates Details Nisoldipine ER 20 MG Oral Tablet Extended Release 24 Hour TAKE 1 TABLET ONCE DAILY. Quantity: 90 Refills: 0 Jessica Bee D.O. Start 20-Apr-2014 Active Clotrimazole-Betamethasone 1-0.05 % External Cream APPLY AND RUB IN A THIN FILM TO AFFECTED AREAS TWO TIMES A DAY (MORNING AND EVENING) Quantity: 1 Refills: 2 Rohit Cathy.Jessica Delacruz Start 13-Oct-2014 Active 45 GM Tube Simvastatin 20 MG Oral Tablet TAKE 1 TABLET Bedtime Quantity: 90 Refills: 3 Rohit D.Jessica Delacruz Start Active Bydureon 2 MG Subcutaneous Pen-injector Inject 2mg Sub-Q Once weekly Quantity: 4 Refills: 2 Rohit Morgan.Jessica Delacruz Start 19-Nov-2016 Active Diclofenac Sodium 1 % Transdermal Gel APPLY SPARINGLY TO AFFECTED AREA(S) ONCE TO TWICE DAILY Quantity: 1 Refills: 3 Rohit Morgan.Jessica Delacruz Start 15-Aug-2016 Active 100 GM Tube Furosemide 20 MG Oral Tablet TAKE 1 TABLET DAILY prn swelling legs. Quantity: 90 Refills: 3 Rohit Morgan.Jessica Delacruz Start 13-Oct-2014 Active Sertraline HCl - 100 MG Oral Tablet TAKE 1 TABLET DAILY. Quantity: 90 Refills: 3 Rohit Morgan.Jessica Delacruz Start 10-Jun-2014 Active GlipiZIDE 5 MG Oral Tablet TAKE ONE TABLET BY MOUTH ONCE DAILY Quantity: 90 Refills: 0 Rohit Morgan.Jessica Delacruz Start 20-Dec-2016 Active Tamsulosin HCl - 0.4 MG Oral Capsule TAKE 1 CAPSULE BY MOUTH AT BEDTIME Quantity: 90 Refills: 3 Rohit Morgan.Jessica Delacruz Start 29-May-2014 Active Lisinopril 40 MG Oral Tablet TAKE 1 TABLET DAILY. Quantity: 90 Refills: 3 Jessica Bee D.O. Start 20-Apr-2014 Active MetFORMIN HCl - 1000 MG Oral Tablet TAKE 1 TABLET TWICE DAILY WITH MEALS. Quantity: 180 Refills: 3 Rohit Morgan.Jessica Delacruz Start 20-Apr-2014 Active Brimonidine Tartrate 0.2 % Ophthalmic Solution INSTILL 1 DROP three times daily in both eyes Quantity: 1 Refills: 3 Armand Edwards M.D. Start 05-Nov-2016 Active 10 ML Bottle Adult Aspirin EC Low Strength 81 MG [...] Replacement Left History of Total Knee Arthroplasty CP Echo Ordered: 15-Jan-2017 Cardiology Precert (outside facility) Ordered: 16-Jan-2017 CP Stress Echo Ordered: 15-Jan-2017 Cardiology Precert (within facility) Ordered: 19-Dec-2016 PSA ( PROSTATE SPECIFIC ANTIGEN) 3100 Ordered: 22-Nov-2016 Quant Microalbumin 1106 Ordered: 19-Dec-2016 HEMOGLOBIN A1C 3507 Ordered: 19-Dec-2016 LIPID PROFILE 1184 Ordered: 19-Dec-2016 BASIC METABOLIC PROFILE 1210 Ordered: 19-Dec-2016 Immunization Name Dates Details Diphtheria-Tetanus Toxoids 6.7-5 LFU/0.5ML INJ on: 12-Jan-2015 Pneumovax 23 25 MCG/0.5ML Injection Injectable on: 12-Jan-2015 Prevnar 13 Intramuscular Suspension on: 12-Jan-2015 Lot #: [id number] Tdap (Adacel) on: 12-Jan-2015 Lot #: [id number] Zoster (Zostavax) on: 20-Apr-2015 Influenza on: 19-Oct-2016 [...] Body Surface Area Calculated 1.97 m2 Status: Results Date Description Value Details 15-Jan-2017 16:14 CP Echo Y Linked PDF [...] low Range: >60 threshold) EST GFR, NON-AFR COMORAN 46 ml/min (Below low Range: >60 threshold) [...] Provider: Tierra Serna M.D. On 18-Jan-2017 08:00 Instructions Name Dates Details Instructions not documented Encounters Appointment; Tierra Serna M.D. On 16-Jan-2017 Encounter Diagnosis: Problem not documented 10:30 Appointment; Jessica Bee D.O. On 19-Dec-2016 Encounter Diagnosis: Problem not documented 08:30 Appointment; Ramon Valentin M.D.,[facility], On 05-Dec-2016 Encounter Diagnosis: Problem not [...] Problem not documented 09:45 Appointment; Ramon Valentin M.D.,[facility], On 07-Dec-2015 Encounter Diagnosis: Problem not [...]
--- OUTSIDE RECORDS SUMMARY | 2017-06-02 13:06 | External Medical Summary | Summary of Care ---
:1945 Author Name Jessica Bee D.O. 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 Quantity: 180 Refills: 3 Rohit Morgan.Jesscia Delacruz Start 20-Apr-2014 Active Lisinopril 40 MG Oral Tablet TAKE 1 TABLET DAILY. Quantity: 90 Refills: 3 Jessica Bee D.O. Start 20-Apr-2014 Active Nisoldipine ER 20 MG Oral Tablet Extended Release 24 Hour TAKE TWO TABLETS BY MOUTH ONCE DAILY Quantity: 60 Refills: 3 Jessica Bee D.O. Start 06-Jun-2016 Active Tamsulosin HCl - 0.4 MG Oral Capsule TAKE 1 CAPSULE BY MOUTH AT BEDTIME Quantity: 90 Refills: 3 Homero Loving, FACS, , Ramon Start 29-May-2014 Active GlipiZIDE 5 MG Oral Tablet TAKE ONE TABLET BY MOUTH ONCE DAILY Quantity: 90 Refills: 3 Jessica Bee D.O. Start 31-May-2014 Active Sertraline HCl - 100 MG Oral Tablet TAKE 1 TABLET DAILY. Quantity: 90 Refills: 3 Rohit D.O.Jessica Start 10-Jun-2014 Active Furosemide 20 MG Oral Tablet TAKE 1 TABLET DAILY prn swelling legs. Quantity: 90 Refills: 3 Rohit D.O.Jessica Start 13-Oct-2014 Active Clotrimazole-Betamethasone 1-0.05 % External Cream APPLY AND RUB IN A THIN FILM TO AFFECTED AREAS TWO TIMES A DAY (MORNING AND EVENING) Quantity: 1 Refills: 2 Rohit D.O.Jessica Start 13-Oct-2014 Active 45 GM Tube Simvastatin 20 MG Oral Tablet TAKE 1 TABLET Bedtime Quantity: 90 Refills: 3 Rohit D.Goldie.Jessica Start Active Bydureon 2 MG Subcutaneous Pen-injector INJECT 2MG SQ ONCE WEEKLY Quantity: 1 Refills: 2 Rohit D.Goldie.Jessica Start 06-Jun-2016 Active 1 Pen-injector Pen (4 Pens) Diclofenac Sodium 1 % Transdermal Gel APPLY SPARINGLY TO AFFECTED AREA(S) ONCE TO TWICE DAILY Quantity: 1 Refills: 3 Rohit D.Goldie.Jessica Start 15-Aug-2016 Active 100 GM Tube Allergies and Adverse Reactions Name Dates Details No Known Drug Allergies (Allergy) Status: Active Procedures Procedure Dates Details History of Cataract Surgery History of Nasal Septal Deviation Repair History of Tonsillectomy With Adenoidectomy History of Total Knee Replacement Right History of Total Knee Replacement Left History of Total Knee Arthroplasty ORTHO KNEE LEFT (3 VIEWS ONLY) Ordered: 20-Jul-2016 Immunization Name Dates Details Diphtheria-Tetanus Toxoids 6.7-5 LFU/0.5ML INJ on: 12-Jan-2015 Pneumovax 23 25 MCG/0.5ML Injection Injectable on: 12-Jan-2015 Prevnar 13 Intramuscular Suspension on: 12-Jan-2015 Lot #: [id number] Tdap (Adacel) on: 12-Jan-2015 Lot #: [id number] Zoster (Zostavax) on: 20-Apr-2015 Family History Mother Name Dates Details Family history of diabetes mellitus (V18.0, Z83.3) Status: Active Family history of cardiac disorder (V17.49, Z82.49) Status: Active Father Name Dates Details Family history of cardiac disorder (V17.49, Z82.49) Status: Active Social History Name Dates Details - Status: Smoking Status Name Dates Details Never smoker Vital Signs Date Test Result Details 15-Aug-2016 08:28 BP Systolic 100 mm[Hg] Status: Comments: Location: ; Position: BP Diastolic 61 mm[Hg] Status: Comments: Location: ; Position: Heart Rate 85 /min Status: Comments: Location: ; Weight 204 lb Status: Body Mass Index Calculated 33.95 kg/m2 Status: Body Surface Area Calculated 1.99 m2 Status: 08-Aug-2016 08:39 BP Systolic 123 mm[Hg] Status: Comments: Location: ; Position: BP Diastolic 68 mm[Hg] Status: Comments: Location: ; Position: Heart Rate 80 /min Status: Comments: Location: ; Weight 211 lb Status: Body Mass Index Calculated 35.11 kg/m2 Status: Body Surface Area Calculated 2.02 m2 Status: Results Date Description Value Details 14-Aug-2016 09:41 ULTRASOUND LEG ARTERIES-BILATERAL Comments: Exam Date: 08/14 08:52Dictation Date: 08/14/2016 09:41 XS LEG ARTERIES Plan of Care Name Dates Details Planned Observations Planned Goals not documented Planned Encounters Appointment; Provider: Jessica Bee D.O. On 26-Jun-2017 09:00 Appointment; Provider: Ramon Valentin M.D.|ALENA Nichole|ALENA Loving, On 05-Dec-2016 09:15 Appointment; Provider: Armand Edwards M.D. On 05-Nov-2016 09:15 Appointment; Provider: Jessica Bee D.O. On 12-Sep-2016 08:45 Appointment; Provider: Tierra Serna M.D. On 15-Aug-2016 10:15 Interventions Provided Medication ChangesDiclofenac Sodium 1 % Transdermal Gel - Start Instructions Name Dates Details Instructions not documented Encounters Appointment; Jessica Bee D.O. On 08-Aug-2016 Encounter [...] Problem not documented 09:45 Appointment; Ramon Valentin M.D.|Marcus|Inder,ALENA|Inder,ALENA, On 2015 Encounter Diagnosis: Problem not documented [...] Problem not documented 09:30 Appointment; Ramon Valentin M.D.|Marcus|Inder,ALENA|Inder,ALENA, On 2014 Encounter Diagnosis: Problem not documented 11:15 Appointment; Jessica Bee D.O. On 13-Oct-2014 Encounter Diagnosis: Problem not documented 09:30 Appointment; Javan Jeter M.D. On 19-Aug-2014 Encounter Diagnosis: Problem not documented 09:15"
--- OUTSIDE RECORDS SUMMARY | 2017-06-02 13:06 | External Medical Summary ---
[...] Plan of Care Procedures Completed Procedure Code: [id number] Procedure Name: not valued, on 01/18/2017 12: [...] Allergies, Adverse Reactions, Alerts This section is veterans employment representative of the current allergy information, at [...]
--- OUTSIDE RECORDS SUMMARY | 2017-06-02 13:07 | External Medical Summary | Summary of Care ---
:1945 Author Name Bella Manning PA-C Address [address], [place] [id number] Care Team Providers Name Role Phone Homero [...] Refills: 2 Jessica Bee D.O. Started 13-Oct-2014 [id number] GM Tube Zostavax 75604 UNT/0.65ML Subcutaneous Solution Reconstituted INJECT 0.65 ML [...] Arthroplasty PSA ( PROSTATE SPECIFIC ANTIGEN) 3100 Ordered:24-Nov-2015 Immunization Name Dates Details Diphtheria-Tetanus Toxoids 6.7-5 LFU/0.5ML Intramuscular Injectable Administered on:12-Jan-2015 Pneumovax 23 25 MCG/0.5ML Injection Injectable Administered on:12-Jan-2015 Prevnar 13 Intramuscular Suspension Administered on:12-Jan-2015 Lot #: [id number] Tdap (Adacel) Administered on:12-Jan-2015 Lot #: [id number] Zoster (Zostavax) Administered on:20-Apr-2015 Family History Mother [...] Provider: Miguel Sofia On 09:15 Appointment; Provider: Jessica Bee On 13-Dec-2015 09:45 Appointment; Provider: Javan Jeter On 27-Apr-2015 07:00 Appointment; Provider: Javan Jeter On 26-May-2014 07:45 Instructions Instructions not documented Encounters Appointment; Ramon Valentin On 07-Dec-2015 Encounter Diagnosis: [...]
--- OUTSIDE RECORDS SUMMARY | 2017-06-02 13:07 | External Medical Summary | Summary of Care ---
:1945 Author Name Jose Jeter M.D. Address [address] [place], [place] [id number] Care Team Providers Name Role Phone Homero [...] Refills: 2 Jessica Bee D.O. Started 13-Oct-2014 [id number] GM Tube Zostavax 10004 UNT/0.65ML Subcutaneous Solution Reconstituted INJECT 0.65 ML [...] Deviation Repair History of Tonsillectomy With Adenoidectomy CP Echo Ordered:13-Jan-2015 BASIC METABOLIC PROFILE 1210 Ordered:20-Jan-2015 LIPID PROFILE 1184 Ordered:20-Jan-2015 HEMOGLOBIN A1C 3507 Ordered:20-Jan-2015 Iron Panel with TIBC 1612 Ordered:20-Jan-2015 Immunization Name Dates Details Diphtheria-Tetanus Toxoids 6.7-5 LFU/0.5ML Intramuscular Injectable Administered on:12-Jan-2015 Pneumovax 23 25 MCG/0.5ML Injection Injectable Administered on:12-Jan-2015 Prevnar 13 Intramuscular Suspension Administered on:12-Jan-2015 Lot #: [id number] Tdap (Adacel) Administered on:12-Jan-2015 Lot #: [id number] Family History Mother Name Dates Details Family [...] Problem not documented 10:15 Appointment; Autsin Benoit On 10-Jun-2014 Encounter Diagnosis: Problem not [...]
--- OUTSIDE RECORDS SUMMARY | 2017-06-02 13:07 | External Medical Summary | Summary of Care ---
:1945 Author Name Kaycee TroyAlexandrea Address [address], [place] [id number] Care Team Providers Name Role Phone Homero [...] S/P knee replacement (V43.65, Z96.659) Status: Active Medications Name Dates Details MetFORMIN [...] Refills: 2 Jessica Bee D.O. Started 13-Oct-2014 [id number] GM Tube Zostavax 21056 UNT/0.65ML Subcutaneous Solution Reconstituted INJECT 0.65 ML [...] 13 Intramuscular Suspension Administered on:12-Jan-2015 Lot #: [id number] Tdap (Adacel) Administered on:12-Jan-2015 Lot #: [id number] Zoster (Zostavax) Administered on:20-Apr-2015 Family History Mother Name Dates Details Family history of diabetes mellitus (V18.0, Z83.3) Status: Active Family history of cardiac disorder (V17.49, Z82.49) Status: Active Father Name Dates Details Family history of cardiac disorder (V17.49, Z82.49) Status: Active Social History Name Dates Details Smoking StatusNever smoker Vital Signs Date Test Result Details 09-May-2015 16:11 BP Systolic 120 mm[Hg] Status: BP Diastolic 74 mm[Hg] Status: Heart Rate 78 /min Status: Weight 199.5 lb Status: Body Mass Index Calculated 33.2 kg/m2 Status: Body Surface Area Calculated 1.98 m2 Status: 20-Apr-2015 09:19 BP Systolic 136 mm[Hg] Status: [...] (Better) Range: 98-110 CARBON DIOXIDE 26.6 mmol/L Range: 23.0-33.0 (Better) ANION GAP 9 mmol/L (Better) Range: 6-16 BUN 22 mg/dL (Above Range: 7-18 high threshold) CREATININE, SERUM 1.25 mg/dL (Better) Range: 0.70-1.30 Comments: Please note new reference ranges effective 2015.----- EST GFR, >60 ml/min Range: >60 (Better) EST GFR, NON-AFR [place] 57 ml/min (Below Range: >60 low threshold) Comments: EST GFR is reported in ml/min per 1.73 m2 of body surface area. For -[place], please multiple result by 1.2.----- BUN:CREATININE RATIO [...] (Better) CARDIAC RSK FACTOR 3.8 units (Below Range: 4.4-5.0 low threshold) LDL - CALCULATED 110 mg/dL (Better) [...] (Better) 14:50 ECG/ EKG Preop Electro CardioGram (Better) 15:06 XRay CHEST-PA & LAT Comments: Exam Date: 04/19/2015 14: 36Dictation Date: 04/19/2015 15:06 X CHEST PA & LAT (Better) 20-Apr-2015 CBC w/ Auto Diff 7150 Comments: Items were attached to this order: CBCManual differential indicated. Fastin hours 10:08 WBC 7.9 K/uL (Better) Range: 4.5-11.0 RBC 4.46 mil/uL Range: 4.20-5.40 (Better) HGB 12.4 g/dL (Below Range: 14.0-18.0 low threshold) HCT 38.5 % (Below low Range: 42.0-53.0 threshold) MCV 86.2 fL (Better) Range: 80.0-99.0 MCH 27.7 pg (Better) Range: 27.3-32.5 MCHC 32.1 % (Better) Range: 32.0-36.0 RDW 14.7 % (Better) Range: 11.6-14.8 PLATELETS 269 K/uL (Better) Range: 150-400 MPV 9.4 fL (Better) Range: 6.0-11.0 10:33 Manual Differential 7400 Comments: Items were attached to this order : CBC Fastin hours SEGS 57 % (Better) Range: 37-80 BANDS 7 % (Better) Range: 0-7 LYMPH 21 % (Better) Range: 13-50 MONO 8 % (Better) Range: 0-12 EOSIN 7 % (Better) Range: 0-7 BASO 0 % (Better) Range: 0-3 MO LYMPH 0 % (Better) Range: 0-0 META 0 % (Better) Range: 0-0 MYELO 0 % (Better) Range: 0-0 PRO 0 % (Better) Range: 0-0 BLAST 0 % (Better) Range: 0-0 NUC RBC 0 /100 WBC (Better) Range: 0-0 SMUDGE 0 /100 WBC (Better) PLATELET Adequate (Better) Range: Adequate ANISO Slight (Better) HYPOCHRO Slight (Better) Plan of Care Planned Observations Name Dates Details Planned Goals not documented Goal Planned Encounters Appointment; Provider: Ramon Valentin On 07-Dec-2015 09:45 Appointment; Provider: Javan Jeter On 21-Jul-2015 09:00 Appointment; Provider: Javan Jeter On 09-Jun-2015 09:00 Appointment; Provider: Javan Jeter On 27-Apr-2015 07:00 Appointment; Provider: Javan Jeter On 26-May-2014 07:45 Instructions Instructions not documented Encounters Appointment; Javan Jeter On 12-May-2015 Encounter Diagnosis: [...]
--- OUTSIDE RECORDS SUMMARY | 2017-06-02 13:07 | External Medical Summary | Summary of Care ---
:1945 Author Name Jessica Bee D.O. Address [address] 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 Started 20-Apr-2014 ActiveMagnesium 400 MG Oral Capsule [...] Refills: 2 Jessica Bee D.O. Started 13-Oct-2014 [id number] GM Tube Hydrocodone-Acetaminophen 10-325 MG Oral Tablet Take 1/2 - 1 tablet PO q 4-6 hrs PRN pain Quantity: 60 Refills: 0 Javan Jeter M.D. Started ActiveSimvastatin 20 MG Oral Tablet TAKE 1 TABLET Bedtime Quantity: 90 Refills: 3 Jessica Bee D.O. Started Active Allergies and Adverse Reactions Name Dates Details No Known Drug Allergies Status: Active Procedures Procedure Dates Details History of Cataract Surgery History of Nasal Septal Deviation Repair History of Tonsillectomy With Adenoidectomy History of Total Knee Replacement Right History of Total Knee Replacement Left History of Total Knee Arthroplasty Comprehensive Metabolic Panel 1212 Ordered: HEMOGLOBIN A1C 3507 Ordered: Immunization Name Dates Details Diphtheria-Tetanus Toxoids 6.7-5 LFU/0.5ML Intramuscular Injectable Administered on:12-Jan-2015 Pneumovax 23 25 MCG/0.5ML Injection Injectable Administered on:12-Jan-2015 Prevnar 13 Intramuscular Suspension Administered on:12-Jan-2015 Lot #: [id number] Tdap (Adacel) Administered on:12-Jan-2015 Lot #: [id number] Zoster (Zostavax) Administered on:20-Apr-2015 Family History Mother Name Dates Details Family history of diabetes mellitus (V18.0, Z83.3) Status: Active Family history of cardiac disorder (V17.49, Z82.49) Status: Active Father Name Dates Details Family history of cardiac disorder (V17.49, Z82.49) Status: Active Social History Name Dates Details Smoking StatusNever smoker Vital Signs Date Test Result Details 14:07 BP Systolic 130 mm[Hg] Status: BP Diastolic 74 mm[Hg] Status: Heart Rate 76 /min Status: Weight 218 lb Status: Body Mass Index Calculated 36.28 kg/m2 Status: Body Surface Area Calculated 2.05 m2 Status: Results Date Description Value Details 10:35 CBC w/ Auto Diff 7150 Comments: Fastin hours WBC 8.5 K/uL (Better) Range: 4.5-11.0 RBC 4.34 mil/uL Range: 4.20-5.40 (Better) HGB 12.1 g/dL (Below Range: 14.0-18.0 low threshold) HCT 37.6 % (Below low Range: 42.0-53.0 threshold) MCV 86.7 fL (Better) Range: 80.0-99.0 MCH 27.8 pg (Better) Range: 27.3-32.5 MCHC 32.0 % (Better) Range: 32.0-36.0 RDW 15.0 % (Above Range: 11.6-14.8 high threshold) PLATELETS 316 K/uL (Better) Range: 150-400 MPV 7.0 fL (Better) Range: 6.0-11.0 %NEUTRO 66.6 % (Better) Range: 37.0-80.0 %LYMPHS 19.7 % (Better) Range: 13.0-50.0 %MONO 5.2 % (Better) Range: 0.0-12.0 %EOS 5.8 % (Better) Range: 0.0-7.0 %BASO 0.7 % (Better) Range: 0.0-2.5 %EVITA 2.0 % (Better) Range: 0.0-5.0 NEUTRO 5.7 K/uL (Better) Range: 2.0-6.9 LYMPHS 1.7 K/uL (Better) Range: 0.6-3.4 MONOS 0.5 K/uL (Better) Range: 0.0-0.9 EOS 0.5 K/uL (Better) Range: 0.0-0.7 BASO 0.1 K/uL (Better) Range: 0.0-0.2 10:52 Comprehensive Metabolic Comments: Fastin hours Panel 1212 SODIUM 141 mmol/L Range: 133-144 (Better) POTASSIUM 4.2 mmol/L Range: 3.5-5.1 (Better) CHLORIDE 105 mmol/L Range: 98-110 (Better) CARBON DIOXIDE 23.4 mmol/L Range: 23.0-33.0 (Better) ANION GAP 13 mmol/L Range: 6-16 (Better) BUN 29 mg/dL (Above Range: 7-18 high threshold) CREATININE, SERUM 1.48 mg/dL (Above Range: 0.70-1.30 high threshold) Comments: Please note new reference ranges effective 01/29.----- BUN:CREATININE RATIO 20 (Better) EST GFR, 57 ml/min (Below Range: >60 low threshold) EST GFR, NON-AFR FIJIAN 47 ml/min (Below Range: >60 low threshold) Comments: EST GFR is reported in ml/min per 1.73 m2 of body surface area. For -[place] Citizen, please multiple result by 1.2.----- GLUCOSE 119 mg/dL (Above Range: 70-100 high threshold) ALK PHOSPHATASE 52 U/L (Better) Range: 46-116 TOTAL BILIRUBIN 0.50 mg/dL Range: 0.20-1.00 (Better) AST 19 U/L (Better) Range: 8-35 ALT 23 U/L (Better) Range: 16-63 Comments: Please note new reference ranges. Effective 11/18/2014.----- ALBUMIN 3.6 g/dL (Better) Range: 3.4-5.0 TOTAL PROTEIN 7.3 g/dL (Better) Range: 6.4-8.2 A/G RATIO 1.0 units Range: 1.0-1.8 (Better) CALCIUM 8.2 mg/dL (Below Range: 8.5-10.1 low threshold) 10:52 LIPID PROFILE 1184 Comments: Fastin hours CHOLESTEROL 163 mg/dL Range: <200 (Better) TRIGLYCERIDES 66 mg/dL (Better) Range: 30-200 HDL Cholesterol 37 mg/dL (Below Range: >39 low threshold) NON HDL CHOLESTEROL 126 (Better) CARDIAC RSK FACTOR 4.4 units Range: 4.4-5.0 (Better) LDL - CALCULATED 113 mg/dL Range: 0-130 (Better) 11:10 Quant Microalbumin 1106 Comments: Fastin hours MICROALBUMIN, URINE 5.3 mg/L (Better) Range: <20.1 13:56 HEMOGLOBIN A1C 3507 Comments: Fastin hours Hemoglobin A1C 7.2 % (Better) ESTIMATED AVG. GLUCOSE 160 (Better) Plan of Care Planned Observations Name Dates Details Planned Goals not documented Goal Planned Encounters Appointment; Provider: Ramon Valentin On 05-Dec-2016 09:15 Appointment; Provider: Javan Jeter On 24-Jul-2016 09:00 Appointment; Provider: Jessica Bee On 06-Jun-2016 08:45 Appointment; Provider: Armand Edwards On 10:15 Appointment; Provider: Javan Jeter On 27-Apr-2015 07:00 Appointment; Provider: Javan Jeter On 26-May-2014 07:45 Instructions Instructions not documented Encounters Appointment; Jessica Bee On Encounter Diagnosis: Problem not documented 13:45 Appointment; Jessica Bee On 13-Dec-2015 Encounter Diagnosis: [...]
--- OUTSIDE RECORDS SUMMARY | 2017-06-02 13:07 | External Medical Summary | Summary of Care ---
:1945 Author Name Jessica Bee D.O. Address [address], [place] [address] Care Team Providers Name Role Phone Homero [...] Refills: 2 Jessica Bee D.O. Started 13-Oct-2014 [id number] GM Tube Zostavax 11669 UNT/0.65ML Subcutaneous Solution Reconstituted INJECT 0.65 ML [...] 13 Intramuscular Suspension Administered on:12-Jan-2015 Lot #: [id number] Tdap (Adacel) Administered on:12-Jan-2015 Lot #: [id number] Family History Mother Name Dates Details Family [...] Encounter Diagnosis: Problem not documented 10:00 Appointment; aRmon Valentin On 11-Jun-2014 Encounter Diagnosis: Problem not [...]
--- OUTSIDE RECORDS SUMMARY | 2017-06-02 13:07 | External Medical Summary ---
[...] Plan of Care Procedures Completed Procedure Code: [id number] Procedure Name: not valued, on 01/18/2017 12: [...] Allergies, Adverse Reactions, Alerts This section is physician relations representative of the current allergy information, at [...]
--- OUTSIDE RECORDS SUMMARY | 2017-06-02 13:07 | External Medical Summary | Summary of Care ---
:1945 Author Name Tierra Serna M.D. Address [address] [facility] [place] [id number] Care Team Providers Name Role Phone Tierra [...] MEALS. Quantity: 180 Refills: 3 Rohit D.O., RMaegan Grimes Start 20-Apr-2014 Active Lisinopril 40 MG Oral Tablet TAKE 1 TABLET DAILY. Quantity: 90 Refills: 3 Rohit D.O., RMaegan Grimes Start 20-Apr-2014 Active Nisoldipine ER 20 MG Oral Tablet Extended Release 24 Hour TAKE 1 TABLET ONCE DAILY. Quantity: 90 Refills: 0 Rohit D.O., Jessica Grimes Start 20-Apr-2014 Active Tamsulosin HCl - 0.4 MG Oral Capsule TAKE 1 CAPSULE BY MOUTH AT BEDTIME Quantity: 90 Refills: 3 Jessica Bee D.O. Start 29-May-2014 Active GlipiZIDE 5 MG Oral Tablet TAKE ONE TABLET BY MOUTH ONCE DAILY Quantity: 90 Refills: 0 Jessica Bee D.O. Start 20-Dec-2016 Active Sertraline HCl - 100 MG Oral [...] Left History of Total Knee Arthroplasty CP Stress Echo Ordered: 15-Jan-2017 CP Echo Ordered: 15-Jan-2017 Cardiology Precert (outside facility) Ordered: 16-Jan-2017 Cardiology Precert (within facility) Ordered: 19-Dec-2016 PSA ( PROSTATE SPECIFIC ANTIGEN) 3100 Ordered: 22-Nov-2016 BASIC METABOLIC PROFILE 1210 Ordered: 19-Dec-2016 LIPID PROFILE 1184 Ordered: 19-Dec-2016 HEMOGLOBIN A1C 3507 Ordered: 19-Dec-2016 Quant Microalbumin 1106 Ordered: 19-Dec-2016 Immunization Name Dates Details Diphtheria-Tetanus Toxoids 6.7-5 LFU/0.5ML INJ on: 12-Jan-2015 Pneumovax 23 25 MCG/0.5ML Injection Injectable on: 12-Jan-2015 Prevnar 13 Intramuscular Suspension on: 12-Jan-2015 Lot #: [id number] Tdap (Adacel) on: 12-Jan-2015 Lot #: [id number] Zoster (Zostavax) on: 20-Apr-2015 Influenza on: 19-Oct-2016 [...] low Range: >60 threshold) EST GFR, NON-AFR SAO TOMEAN 43 ml/min (Below low Range: >60 threshold) [...] low Range: >60 threshold) EST GFR, NON-AFR SAO TOMEAN 46 ml/min (Below low Range: >60 threshold) [...] documented Encounters Appointment; Jessica Bee D.O. On 19-Dec-2016 Encounter Diagnosis: Problem not documented 08:30 Appointment; Ramon Valentin M.D.,[facility], On 05-Dec-2016 Encounter Diagnosis: Problem not documented [...] Encounter Diagnosis: Problem not documented 10:15 Appointment; eJssica Bee D.O. On Encounter Diagnosis: Problem not documented 13:45 Appointment; Jessica Bee D.O. On 13-Dec-2015 Encounter Diagnosis: Problem not documented 09:45 Appointment; Ramon Valentin M.D.,[facility], On 07-Dec-2015 Encounter Diagnosis: Problem not documented [...]
--- OUTSIDE RECORDS SUMMARY | 2017-06-02 13:08 | External Medical Summary | Summary of Care ---
:1945 Author Name Jessica Bee D.O. Address [address] [facility] [place] [address] Care Team Providers Name Role Phone Homero [...] chronic kidney disease (250.40, E11.22) Status: Active Depression (311, F32.9) Status: Active Cough (786.2, R05) Status: Active Abnormal weight loss (783.21, R63.4) Status: Active Pneumonia (486, J18.9) Status: Active Medications Name Dates Details MetFORMIN HCl - 1000 MG Oral Tablet TAKE 1 TABLET TWICE DAILY WITH MEALS. Quantity: 180 Refills: 3 Jessica Bee D.O. Start 20-Apr-2014 Active Lisinopril 40 MG Oral [...] DAILY DIRECTED. Refills: 0 Start 15-Aug-2016 Active Azithromycin 250 MG Oral Tablet TAKE 2 TABLETS ON DAY 1 THEN TAKE 1 TABLET A DAY FOR 4 DAYS. Quantity: 1 Refills: 0 Jessica Bee D.O. Start 12-Sep-2016 Active 6 Tablet Disp Pack Benzonatate 100 MG Oral Capsule TAKE 1 CAPSULE 3 TIMES DAILY NEEDED FOR DRY COUGH ONLY Quantity: 14 Refills: 0 Jessica Bee D.O. Start 12-Sep-2016 Active Allergies and Adverse Reactions Name Dates Details No Known Drug Allergies (Allergy) Status: Active Procedures Procedure Dates Details History of Cataract Surgery History of Nasal Septal Deviation Repair History of Tonsillectomy With Adenoidectomy History of Total Knee Replacement Right History of Total Knee Replacement Left History of Total Knee Arthroplasty Cardiology Precert (within facility) Ordered: 15-Aug-2016 CBC w/ Auto Diff 7150 Ordered: 12-Sep-2016 Comprehensive Metabolic Panel 1212 Ordered: 12-Sep-2016 ORTHO KNEE LEFT (3 VIEWS ONLY) Ordered: 20-Jul-2016 Immunization Name Dates Details Diphtheria-Tetanus Toxoids 6.7-5 LFU/0.5ML INJ on: 12-Jan-2015 Pneumovax 23 25 MCG/0.5ML Injection Injectable on: 12-Jan-2015 Prevnar 13 Intramuscular Suspension on: 12-Jan-2015 Lot #: [id number] Tdap (Adacel) on: 12-Jan-2015 Lot #: [id number] Zoster (Zostavax) on: 20-Apr-2015 Family History Mother Name Dates Details Family history of diabetes mellitus (V18.0, Z83.3) Status: Active Family history of cardiac disorder (V17.49, Z82.49) Status: Active Father Name Dates Details Family history of cardiac disorder (V17.49, Z82.49) Status: Active Social History Name Dates Details - Status: Smoking Status Name Dates Details Never smoker Vital Signs Date Test Result Details 12-Sep-2016 08:53 BP Systolic 112 mm[Hg] Status: Comments: Location: ; Position: BP Diastolic 59 mm[Hg] Status: Comments: Location: ; Position: Temperature 97.4 f Status: Heart Rate 103 /min Status: Comments: Location: ; Weight 194 lb Status: Physical Findings 96 Status: Comments: O2 Saturation Body Mass Index Calculated 32.28 kg/m2 Status: Body Surface Area Calculated 1.95 m2 Status: 15-Aug-2016 10:26 BP Systolic 100 mm[Hg] Status: Comments: Location: ; Position: BP Diastolic 48 mm[Hg] Status: Comments: Location: ; Position: Heart Rate 84 /min Status: Comments: Location: ; Weight 205.25 lb Status: Physical Findings 97 Status: Comments: O2 Saturation Body Mass Index Calculated 34.16 kg/m2 Status: Body Surface Area Calculated 2 m2 Status: 15-Aug-2016 08:28 BP Systolic 100 mm[Hg] Status: Comments: Location: ; Position: BP Diastolic 61 mm[Hg] Status: Comments: Location: ; Position: Heart Rate 85 /min Status: Comments: Location: ; Weight 204 lb Status: Body Mass Index Calculated 33.95 kg/m2 Status: Body Surface Area Calculated 1.99 m2 Status: Results Date Description Value Details 14-Aug-2016 09:41 ULTRASOUND LEG ARTERIES-BILATERAL Comments: Exam Date: 08/14 08:52Dictation Date: 08/14/2016 09:41 XS LEG ARTERIES 15-Aug-2016 10:31 ECG/ EKG (Specialists) Electro CardioGram 12-Sep-2016 09:50 XRay CHEST-PA & LAT Comments: Exam Date: 09/12/2016 09: 10Dictation Date: 09/12/2016 09:50 X CHEST PA & LAT Plan of Care Name Dates Details Planned Observations Planned Goals not documented Planned Encounters Appointment; Provider: Jessica Bee D.O. On 26-Jun-2017 09:00 Appointment; Provider: Jessica Bee D.O. On 19-Dec-2016 08:30 Appointment; Provider: Ramon Valentin M.D.|ALENA Nichole|ALENA [place], On 05-Dec-2016 09:15 Appointment; Provider: Armand Edwards M.D. On 05-Nov-2016 09:15 Interventions Provided Medication ChangesAzithromycin 250 MG Oral Tablet - StartBenzonatate 100 MG Oral Capsule - StartLabs/Procedures/ImagingCBC w/ Auto Diff 7150; To be Done: 12 Sep 2016Comprehensive Metabolic Panel 1212; To be Done: 12 Sep 2016XRay CHEST -PA & LAT; Done: Sep 12 2016 9:50AM Instructions Name Dates Details Instructions not documented Encounters Appointment; Tierra Serna M.D. On 15-Aug-2016 Encounter [...] Problem not documented 09:45 Appointment; Ramon Valentin M.D.|JannethCMaeganSMaegan|ALENA Loving|Inder,ALENA, On 2015 Encounter Diagnosis: Problem not documented [...] Problem not documented 09:30 Appointment; Ramon Valentin M.D.|Alejandro.C.SMaegan|ALENA Loving|Inder,ALENA, On 2014 Encounter Diagnosis: Problem not documented 11:15 Appointment; Jessica Bee D.O. On 13-Oct-2014 Encounter Diagnosis: Problem not documented 09:30"
--- OUTSIDE RECORDS SUMMARY | 2017-06-02 13:08 | External Medical Summary | Summary of Care ---
:1945 Author Name Jesscia Bee D.O. Address [address], [place] [address] Care Team Providers Name Role Phone Homero [...] Ramon Valentin M.D., FACS, , Started 29-May-2014 ActiveBethanechol Chloride 25 MG Oral Tablet TAKE [...] Refills: 2 Jessica Bee D.O. Started 13-Oct-2014 [id number] GM Tube GlipiZIDE 5 MG Oral Tablet TAKE 1 TABLET DAILY. Quantity: 90 Refills: 1 Jessica Bee D.O. Started 31-May-2014 ActiveDiclofenac Sodium 75 MG Oral Tablet Delayed Release Takes 1 tablet daily Quantity: 90 Refills: 1 Jessica Bee D.O. Started 20-Apr-2014 Active Allergies and Adverse Reactions Name Dates [...] 07-Dec-2015 09:45 Appointment; Provider: Jessica Bee On 12-Jan-2015 09:30 Appointment; Provider: Javan Jeter On 26-May-2014 [...]
--- OUTSIDE RECORDS SUMMARY | 2017-06-02 13:08 | External Medical Summary | Summary of Care ---
:1945 Author Name Jessica Bee D.O. Address [address] [place], [place] [address] Care Team Providers Name Role Phone Homero [...] Status: Active Hypertension (401.9, I10) Status: Active Medicare annual wellness visit, initial [...] radiating leg pain (729.2, M54.10) Status: Active Medications Name Dates Details MetFORMIN HCl - 1000 MG Oral Tablet TAKE 1 TABLET TWICE DAILY WITH MEALS. Quantity: 180 Refills: 3 Rohit D.O.Jessica Start 20-Apr-2014 Active Lisinopril 40 MG Oral Tablet TAKE 1 TABLET DAILY. Quantity: 90 Refills: 3 Rohit D.O.Jessica Start 20-Apr-2014 Active Nisoldipine ER 20 MG Oral Tablet Extended Release 24 Hour TAKE TWO TABLETS BY MOUTH ONCE DAILY Quantity: 60 Refills: 3 Rohit D.O.Jessica Start 06-Jun-2016 Active Tamsulosin HCl - 0.4 [...] Replacement Left History of Total Knee Arthroplasty ULTRASOUND LEG ARTERIES-BILATERAL Ordered: 08-Aug-2016 ORTHO KNEE LEFT (3 VIEWS ONLY) Ordered: 20-Jul-2016 Immunization Name Dates Details Diphtheria-Tetanus Toxoids 6.7-5 LFU/0.5ML INJ on: 12-Jan-2015 Pneumovax 23 25 MCG/0.5ML Injection Injectable on: 12-Jan-2015 Prevnar 13 Intramuscular Suspension on: 12-Jan-2015 Lot #: [id number] Tdap (Adacel) on: 12-Jan-2015 Lot #: [id number] Zoster (Zostavax) on: 20-Apr-2015 Family History Mother Name Dates Details Family history of diabetes mellitus (V18.0, Z83.3) Status: Active Family history of cardiac disorder (V17.49, Z82.49) Status: Active Father Name Dates Details Family history of cardiac disorder (V17.49, Z82.49) Status: Active Social History Name Dates Details - Status: Smoking Status Name Dates Details Never smoker Vital Signs Date Test Result Details 08-Aug-2016 08:39 BP Systolic 123 mm[Hg] Status: Comments: Location: ; Position: BP Diastolic 68 mm[Hg] Status: Comments: Location: ; Position: Heart Rate 80 /min Status: Comments: Location: ; Weight 211 lb Status: Body Mass Index Calculated 35.11 kg/m2 Status: Body Surface Area Calculated 2.02 m2 Status: Results Date Description Value Details Results not documented Plan of Care Name Dates Details Planned Observations Planned Goals not documented Planned Encounters Appointment; Provider: Jessica Bee D.O. On 26-Jun-2017 09:00 Appointment; Provider: Ramon Valentin M.D.|ALENA Nichole|Inder,ALENA, On 05-Dec-2016 09:15 Appointment; Provider: Armand Edwards M.D. On 05-Nov-2016 09:15 Appointment; Provider: Jessica Bee D.O. On 12-Sep-2016 08:45 Appointment; Provider: Jessica Bee D.O. On 15-Aug-2016 08:30 Appointment; Provider: Schedule Radiology On 14-Aug-2016 09:00 Interventions Provided Labs/Procedures/ImagingULTRASOUND LEG ARTERIES-BILATERAL; To be Done: 08 Aug 2016 Instructions Name Dates Details Instructions not documented Encounters Appointment; Javan Jeter M.D. On 24-Jul-2016 Encounter [...] Problem not documented 09:45 Appointment; Ramon Valentin M.D.|Marcus|MANAS Loving,FACS, On 2015 Encounter Diagnosis: Problem not documented [...] Problem not documented 09:30 Appointment; Ramon Valentin M.D.|ALENA Nichole|Inder,ALENA, On 2014 Encounter Diagnosis: Problem not documented 11:15 Appointment; Jessica Bee D.O. On 13-Oct-2014 Encounter Diagnosis: Problem not documented 09:30 Appointment; Javan Jeter M.D. On 19-Aug-2014 Encounter Diagnosis: Problem not documented 09:15"
--- OUTSIDE RECORDS SUMMARY | 2017-06-02 13:08 | External Medical Summary | Summary of Care ---
:1945 Author Name Tierra Serna M.D. 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 Refills: 0 Jessica Bee D.O. Start 10-Jun-2014 Active Furosemide 20 MG Oral Tablet TAKE 1 TABLET DAILY prn swelling legs. Quantity: 90 Refills: 3 Jessica Bee D.O. Start 13-Oct-2014 Active Clotrimazole-Betamethasone 1-0.05 % External Cream APPLY AND RUB IN A THIN FILM TO AFFECTED AREAS TWO TIMES A DAY (MORNING AND EVENING) Quantity: 1 Refills: 2 Jessica Bee D.O. Start 13-Oct-2014 Active 45 GM Tube Bydureon 2 MG Subcutaneous Pen-injector Inject 2mg [...] M.D. Start 05-Nov-2016 Active 10 ML Bottle Multi Vitamin Oral Tablet TAKE 1 TABLET DAILY. Refills: 0 Start 05-Feb-2017 Active ZyrTEC Allergy 10 MG Oral Capsule take 1 capsule daily Refills: 0 Start 05-Feb-2017 Active Brilinta 90 MG Oral Tablet TAKE 1 TABLET TWICE DAILY. Quantity: 180 Refills: 3 Kareem Smith.Cathy., T. K. Start 05-Feb-2017 Active Metoprolol Tartrate 50 MG Oral Tablet TAKE 1 TABLET TWICE DAILY. Quantity: 180 Refills: 3 Kareem Smith.D., T. K. Start 05-Feb-2017 Active Amiodarone HCl - 100 MG Oral Tablet TAKE 1 TABLET DAILY. Quantity: 90 Refills: 3 Kareem Smith.Cathy., T. K. Start 05-Feb-2017 Active Atorvastatin Calcium 20 MG Oral Tablet TAKE 1 TABLET DAILY DIRECTED. Quantity: 90 Refills: 3 Kareem Smith.Cathy., T. K. Start 05-Feb-2017 Active Allergies and Adverse Reactions Name Dates [...] Arthroplasty Cardiology Precert (within facility) Ordered: 19-Dec-2016 CP Stress Echo Ordered: 15-Jan-2017 Cardiology Precert (outside facility) Ordered: 16-Jan-2017 ECG/ EKG ([facility]) Pendin05-Feb-2017 CP Echo Ordered: 15-Jan-2017 THYROID STIM. HORMONE 3602 Ordered: 05-Feb-2017 LIVER PROFILE 1215 Ordered: 05-Feb-2017 BASIC METABOLIC PROFILE 1210 Ordered: 19-Dec-2016 LIPID PROFILE 1184 Ordered: 19-Dec-2016 HEMOGLOBIN A1C 3507 Ordered: 19-Dec-2016 Quant Microalbumin 1106 Ordered: 19-Dec-2016 Immunization Name Dates Details Diphtheria-Tetanus Toxoids 6.7-5 LFU/0.5ML INJ on: 12-Jan-2015 Pneumovax 23 25 MCG/0.5ML Injection Injectable on: 12-Jan-2015 Prevnar 13 Intramuscular Suspension on: 12-Jan-2015 Lot #: [id number] Tdap (Adacel) on: 12-Jan-2015 Lot #: [id number] Zoster (Zostavax) on: 20-Apr-2015 Influenza on: 19-Oct-2016 [...] smoker Vital Signs Date Test Result Details 05-Feb-2017 13:21 BP Systolic 104 mm[Hg] Status: Comments: Location: ; Position: BP Diastolic 64 mm[Hg] Status: Comments: Location: ; Position: Heart Rate 66 /min Status: Comments: Location: ; Physical Findings 20 Status: Comments: Respiration Weight 19.8 lb Status: Physical Findings 99 Status: Comments: O2 Saturation Body Mass Index Calculated 3.29 kg/m2 Status: Body Surface Area Calculated 0.74 m2 Status: 16-Jan-2017 10:50 BP Systolic 132 mm[Hg] Status: [...] low Range: >60 threshold) EST GFR, NON-AFR BURMESE 46 ml/min (Below low Range: >60 threshold) Comments: EST GFR is reported in ml/min per 1.73 m2 of body surface area. ----- BUN:CREATININE RATIO 17 GLUCOSE 102 mg/dL (Above high Range: 70-100 threshold) CALCIUM 8.6 mg/dL Range: 8.5-10.1 05-Feb-2017 13:33 ECG/ EKG ([facility]) Electro CardioGram Plan of Care Name Dates Details Planned Observations THYROID STIM. HORMONE 3602 On Intent LIVER PROFILE 1215 On Intent ECG/ EKG ([facility]ists) On 14-Aug-2017 Intent Planned Goals not documented Planned Encounters Appointment; Provider: Tierra Serna M.D. On 14-Aug-2017 13:00 Appointment; Provider: Jessica Bee D.O. On 26-Jun-2017 09:00 Appointment; Provider: Jessica Bee D.O. On 09:15 Appointment; Provider: Armand Edwards M.D. On 10:45 Appointment; Provider: Armand Edwards M.D. On 10:30 Interventions Provided Medication ChangesSimvastatin 20 MG Oral Tablet - CompletedLabs/Procedures/ ImagingECG/ EKG (Specialists); Done: Feb 05 2017 1:33PM Instructions Name Dates Details Instructions not documented Encounters Appointment; Tierra Serna M.D. On 16-Jan-2017 Encounter Diagnosis: Problem not documented 10:30 Appointment; Jessica Bee D.O. On 19-Dec-2016 Encounter Diagnosis: Problem not documented 08:30 Appointment; Ramon Valentin M.D.,[facility], On 05-Dec-2016 Encounter Diagnosis: Problem not [...] not documented 09:45 Appointment; Ramon Valentin M.D.,[facility], On 07-Dec-2015 Encounter Diagnosis: Problem not documented 09:45 Appointment; Miguel Sofia D.O. On 13-Sep-2015 Encounter Diagnosis: Problem not documented 10:15 Appointment; Jessica Bee D.O. On 06-Sep-2015 Encounter Diagnosis: Problem not documented 09:15 Appointment; Jaavn Jeter M.D. On 21-Jul-2015 Encounter Diagnosis: Problem [...]
--- OUTSIDE RECORDS SUMMARY | 2017-06-02 13:08 | External Medical Summary | Summary of Care ---
:1945 Author Name Jessica Bee D.O. Address [address] [place], [place] [id number] Care Team Providers Name Role Phone Homero [...] Refills: 2 Jessica Bee D.O. Started 13-Oct-2014 [id number] GM Tube Zostavax [id number] UNT/0.65ML Subcutaneous Solution Reconstituted INJECT 0.65 ML [...] 13 Intramuscular Suspension Administered on:12-Jan-2015 Lot #: [id number] Tdap (Adacel) Administered on:12-Jan-2015 Lot #: [id number] Zoster (Zostavax) Administered on:20-Apr-2015 Family History Mother [...]
--- OUTSIDE RECORDS SUMMARY | 2017-06-02 13:08 | External Medical Summary | Summary of Care ---
:1945 Author Name Jose Jeter M.D. Address Unavailable Unavailable , Care Team Providers Name Role Phone Homero [...] chronic kidney disease (250.40, E11.22) Status: Active Medicare annual wellness visit, initial (V70.0, Z00.00) Status: Active Aggressive former smoker (V15.82, Z87.891) Status: Active Primary open angle glaucoma of [...] of knee replacement (V43.65, Z96.659) Status: Active Medications Name Dates Details MetFORMIN HCl - 1000 MG Oral Tablet TAKE 1 TABLET TWICE DAILY WITH MEALS. Quantity: 180 Refills: 3 Rohit Morgan.Goldie.Jessica Start 20-Apr-2014 Active Lisinopril 40 MG Oral Tablet TAKE 1 TABLET DAILY. Quantity: 90 Refills: 3 Rohit Morgan.Jessica Delacruz Start 20-Apr-2014 Active Nisoldipine ER 20 MG Oral Tablet Extended Release 24 Hour TAKE TWO TABLETS BY MOUTH ONCE DAILY Quantity: 60 Refills: 3 Rohit D.Jessica Delacruz Start 06-Jun-2016 Active Tamsulosin HCl - 0.4 MG Oral Capsule TAKE 1 CAPSULE BY MOUTH AT BEDTIME Quantity: 90 Refills: 3 Homero Loving, FACS, , Ramon Start 29-May-2014 Active GlipiZIDE 5 MG Oral Tablet TAKE ONE TABLET BY MOUTH ONCE DAILY Quantity: 90 Refills: 3 Rohit Morgan.Jessica Delacruz Start 31-May-2014 Active Sertraline HCl - 100 MG Oral Tablet TAKE 1 TABLET DAILY. Quantity: 90 Refills: 3 Rohit D.Goldie.Jessica Start 10-Jun-2014 Active Furosemide 20 MG Oral Tablet TAKE 1 TABLET DAILY prn swelling legs. Quantity: 90 Refills: 3 Jessica Bee D.O. Start 13-Oct-2014 Active Clotrimazole-Betamethasone 1-0.05 % External Cream APPLY AND RUB IN A THIN FILM TO AFFECTED AREAS TWO TIMES A DAY (MORNING AND EVENING) Quantity: 1 Refills: 2 Rohit Jessica Peter Start 13-Oct-2014 Active 45 GM Tube Simvastatin [...] Replacement Left History of Total Knee Arthroplasty HEMOGLOBIN A1C 3507 Ordered: 07-Jun-2016 BASIC METABOLIC PROFILE 1210 Ordered: 07-Jun-2016 ORTHO KNEE LEFT (3 VIEWS ONLY) Ordered: 20-Jul-2016 Immunization Name Dates Details Diphtheria-Tetanus Toxoids 6.7-5 LFU/0.5ML INJ on: 12-Jan-2015 Pneumovax 23 25 MCG/0.5ML Injection Injectable on: 12-Jan-2015 Prevnar 13 Intramuscular Suspension on: 12-Jan-2015 Lot #: [id number] Tdap (Adacel) on: 12-Jan-2015 Lot #: [id number] Zoster (Zostavax) on: 20-Apr-2015 Family History Mother Name Dates Details Family history of diabetes mellitus (V18.0, Z83.3) Status: Active Family history of cardiac disorder (V17.49, Z82.49) Status: Active Father Name Dates Details Family history of cardiac disorder (V17.49, Z82.49) Status: Active Social History Name Dates Details Aggressive former smoker (V15.82, Z87.891) Status: Active Smoking Status Name Dates Details Never smoker Vital Signs Date Test Result Details No Known Vitals to report Results Date Description Value Details Results not documented Plan of Care Name Dates Details Planned Observations Planned Goals not documented Planned Encounters Appointment; Provider: Jessica Bee D.O. On 26-Jun-2017 09:00 Appointment; Provider: Ramon Valentin M.D.|Marcus|ALENA Lovign|ALENA Loving, On 05-Dec-2016 09:15 Appointment; Provider: Armand Edwards M.D. On 05-Nov-2016 09:15 Appointment; Provider: Jessica Bee D.O. On 12-Sep-2016 08:45 Interventions Provided Labs/Procedures/ImagingORTHO KNEE LEFT (3 VIEWS ONLY); To be Done: 24 Jul 2016 Instructions Name Dates Details Instructions not documented Encounters Appointment; Armand Edwards M.D. On 04-Jul-2016 Encounter [...]
--- OUTSIDE RECORDS SUMMARY | 2017-06-02 13:08 | External Medical Summary | Summary of Care ---
:1945 Author Name Jessica Bee D.O. Address [address] [facility] [place], [place] [id number] Care Team Providers Name Role Phone Homero [...] Knee Arthroplasty Cardiology Precert (within facility) Ordered: 7-Dec-2016 CBC w/ Auto Diff 7150 Ordered: 12-Sep-2016 Comprehensive Metabolic Panel 1212 Ordered: 12-Sep-2016 ORTHO KNEE LEFT (3 VIEWS ONLY) Ordered: 20-Jul-2016 Immunization Name Dates Details Diphtheria-Tetanus Toxoids 6.7-5 LFU/0.5ML INJ on: 12-Jan-2015 Pneumovax 23 25 MCG/0.5ML Injection Injectable on: 12-Jan-2015 Prevnar 13 Intramuscular Suspension on: 12-Jan-2015 Lot #: [id number] Tdap (Adacel) on: 12-Jan-2015 Lot #: [id number] Zoster (Zostavax) on: 20-Apr-2015 Family History Mother [...] Location: ; Position: Temperature 97.4 f Status: Comments: Method: Heart Rate 103 /min Status: Comments: Location: ; Weight 194 lb Status: Physical Findings 96 Status: Comments: O2 Saturation Body Mass Index Calculated 32.28 kg/m2 Status: Body Surface Area Calculated 1.95 m2 Status: Results Date Description Value Details 12-Sep-2016 09:50 XRay CHEST-PA & LAT Comments: [...] Problem not documented 09:45 Appointment; Ramon Valentin M.D.|Dayanara,ALENA|Inder,ALENA, On 2015 Encounter Diagnosis: Problem not documented [...] Problem not documented 09:30 Appointment; Ramon Valentin M.D.|Marcus|Inder,MANAS,ALENA, On 2014 Encounter Diagnosis: Problem not documented 11:15 Appointment; Jessica Bee D.O. On 13-Oct-2014 Encounter Diagnosis: Problem not documented 09:30"
--- OUTSIDE RECORDS SUMMARY | 2017-06-02 13:09 | External Medical Summary | Summary of Care ---
:1945 Author Name Jessica Bee D.O. Address [address] [facility] [place], [place] [id number] Care Team Providers Name Role Phone Homero [...] atrophy, 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, 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 BPH (benign prostatic hyperplasia) (600.00, N40.0) Status: Active Diabetes mellitus type 2 without retinopathy (250.00, E11.9) Status: Active Hypertension (401.9, I10) Status: Active CKD (chronic kidney disease), stage II (585.2, N18.2) Status: Active Type 2 diabetes mellitus with stage 3 chronic kidney disease (250.40, E11.22) Status: Active Hyperlipidemia (272.4, E78.5) Status: Active Pseudophakia of left eye (V43.1, Z96.1) Status: Active Pseudophakia of right eye (V43.1, Z96.1) Status: Active Blurry vision, bilateral (368.8, H53.8) Status: Active 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 Quantity: 180 Refills: 2 Rohit Cathy.O.Jessica Start 20-Apr-2014 Active Lisinopril 40 MG Oral Tablet TAKE 1 TABLET DAILY. Quantity: 90 Refills: 2 Rohit Cathy.Jessica Delacruz Start 20-Apr-2014 Active Pioglitazone HCl - 30 MG Oral Tablet TAKE 1 TABLET ONCE DAILY Quantity: 90 Refills: 3 Rohit D.Jessica Delacruz Start 20-Apr-2014 Active Nisoldipine ER 40 MG Oral Tablet Extended Release 24 Hour TAKE ONE TABLET BY MOUTH ONCE DAILY Quantity: 90 Refills: 1 Rohit Cathy.Jessica Delacruz Start 20-Apr-2014 Active Diclofenac Sodium 75 MG Oral Tablet Delayed Release TAKE ONE TABLET BY MOUTH ONCE DAILY Quantity: 90 Refills: 0 Rohit D.Jessica Delacruz Start 20-Apr-2014 Active Magnesium 400 MG CAPS TAKES 2 TO EQUAL 800 MG Refills: 0 Start 20-Apr-2014 Active Tamsulosin HCl - 0.4 MG Oral Capsule TAKE 1 CAPSULE BY MOUTH AT BEDTIME Quantity: 90 Refills: 3 Homero Loving, ALENA, , Ramon Start 29-May-2014 Active GlipiZIDE 5 MG Oral Tablet TAKE ONE TABLET BY MOUTH ONCE DAILY Quantity: 90 Refills: 3 Rohit D.Jessica Delacruz Start 31-May-2014 Active Sertraline HCl - 100 MG Oral Tablet TAKE 1 TABLET DAILY. Quantity: 90 Refills: 2 Jessica Bee D.O. Start 10-Jun-2014 Active Furosemide 20 MG Oral Tablet TAKE 1 TABLET DAILY prn swelling legs. Quantity: 90 Refills: 3 Jessica Bee D.O. Start 13-Oct-2014 Active Clotrimazole-Betamethasone 1-0.05 % External Cream APPLY AND RUB IN A THIN FILM TO AFFECTED AREAS TWO TIMES A DAY (MORNING AND EVENING) Quantity: 1 Refills: 2 Jessica Bee D.O. Start 13-Oct-2014 Active 45 GM Tube Hydrocodone-Acetaminophen 10-325 MG Oral Tablet Take 1/2 - 1 tablet PO q 4-6 hrs PRN pain Quantity: 60 Refills: 0 Javan Jeter M.D. Start Active Simvastatin 20 MG Oral Tablet TAKE 1 TABLET Bedtime Quantity: 90 Refills: 3 Jessica Bee D.O. Start Active Allergies and Adverse Reactions Name Dates [...] 13 Intramuscular Suspension on: 12-Jan-2015 Lot #: [id number] Tdap (Adacel) on: 12-Jan-2015 Lot #: [id number] Zoster (Zostavax) on: 20-Apr-2015 Family History Mother [...] of Care Name Dates Details Planned Observations Comprehensive Metabolic Panel 1212 On 25-May-2016 Intent HEMOGLOBIN A1C 3507 On 25-May-2016 Intent Planned Goals not documented Planned Encounters Appointment; Provider: Ramon Valentin M.D.|Marcus|ALENA Loving|ALENA Loving, On 05-Dec-2016 09:15 Appointment; Provider: Javan Jeter M.D. On 24-Jul-2016 09:00 Appointment; Provider: Armand Edwards M.D. On 04-Jul-2016 09:15 Appointment; Provider: Jessica Bee D.O. On 06-Jun-2016 08:45 Interventions Provided Medication ChangesSimvastatin 20 MG Oral Tablet - StartLabs/Procedures/Imaging CBC w/ Auto Diff 7150; Done: Feb 21 2016 8:35AMComprehensive Metabolic Panel 1212; Done: Feb 21 2016 8:35AMHEMOGLOBIN A1C 3507; Done: Feb 21 2016 8: 35AMLIPID PROFILE 1184; Done: Feb 21 2016 8:35AMQuant Microalbumin 1106; Done: Feb 21 2016 8:35AM Instructions Name Dates Details Instructions not documented Encounters Appointment; Jessica Bee D.O. On 13-Dec-2015 Encounter [...] Problem not documented 09:30 Appointment; Ramon Valentin M.D.|Alejandro.C.S.|Inder,ALENA|Inder,ALENA, On 2014 Encounter Diagnosis: Problem not documented 11:15 Appointment; Jessica Bee D.O. On 13-Oct-2014 Encounter Diagnosis: Problem not documented 09:30 Appointment; Javan Jeter M.D. On 19-Aug-2014 Encounter Diagnosis: Problem not documented 09:15 Appointment; Jessica Bee D.O. On 09-Jul-2014 Encounter Diagnosis: Problem not documented 09:30 Appointment; Javan Jeter M.D. On 08-Jul-2014 Encounter Diagnosis: Problem not documented 09:15 Appointment; Ramon Valentin M.D.|F.A.C.S.|Inder,ALENA|Inder,ALENA, On 2013 Encounter Diagnosis: Problem not documented 11:30 Appointment; Ramon Valentin M.D.|F.A.C.S.|MYuli,ALENA|Inder,ALENA, On 2013 Encounter Diagnosis: Problem not documented 07:00 Appointment; Jessica Bee D.O. On 18-Jun-2014 Encounter Diagnosis: Problem not documented 10:00 Appointment; Ramon Valentin M.D.|F.A.C.S.|MYuli,ALENA|MYuli,ALENA, On 2013 Encounter Diagnosis: Problem not documented 07:30 Appointment; Ramon Valentin M.D.|F.A.C.S.|MYuli,ALENA|MYuli,ALENA, On 2013 Encounter Diagnosis: Problem not documented 07:15 Appointment; Jessica Bee D.O. On 10-Jun-2014 Encounter Diagnosis: Problem not documented 10:15 Appointment; Austin Benoit P.A. On 10-Jun-2014 Encounter Diagnosis: Problem not documented 09:30 Appointment; Lu Morris M.D. On 05-Jun-2014 Encounter Diagnosis: Problem not documented 08:15"
--- OUTSIDE RECORDS SUMMARY | 2017-06-02 13:09 | External Medical Summary | Summary of Care ---
:1945 Author Name Jessica Bee D.O. 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 Quantity: 90 Refills: 3 Roiht D.Goldie.Jessica Start 10-Jun-2014 Active Furosemide 20 MG Oral Tablet TAKE 1 TABLET DAILY prn swelling legs. Quantity: 90 Refills: 3 Rohit D.Goldie.Jessica Start 13-Oct-2014 Active Clotrimazole-Betamethasone 1-0.05 % External [...] 07-Jun-2016 BASIC METABOLIC PROFILE 1210 Ordered: 07-Jun-2016 Immunization Name Dates Details Diphtheria-Tetanus Toxoids 6.7-5 LFU/0.5ML INJ on: 12-Jan-2015 Pneumovax 23 25 MCG/0.5ML Injection Injectable on: 12-Jan-2015 Prevnar 13 Intramuscular Suspension on: 12-Jan-2015 Lot #: [id number] Tdap (Adacel) on: 12-Jan-2015 Lot #: [id number] Zoster (Zostavax) on: 20-Apr-2015 Family History Mother Name Dates Details Family history of diabetes mellitus (V18.0, Z83.3) Status: Active Family history of cardiac disorder (V17.49, Z82.49) Status: Active Father Name Dates Details Family history of cardiac disorder (V17.49, Z82.49) Status: Active Social History Name Dates Details - Status: Smoking Status Name Dates Details Never smoker Vital Signs Date Test Result Details 20-Jun-2016 09:29 BP Systolic 114 mm[Hg] Status: Comments: Location: ; Position: BP Diastolic 62 mm[Hg] Status: Comments: Location: ; Position: Heart Rate 67 /min Status: Comments: Location: ; Height 65 in Status: Weight 216 lb Status: Physical Findings 99 Status: Comments: O2 Saturation Body Mass Index Calculated 35.94 kg/m2 Status: Body Surface Area Calculated 2.04 m2 Status: 06-Jun-2016 09:04 BP Systolic 127 mm[Hg] Status: [...] low Range: >60 threshold) EST GFR, NON-AFR MONGOLIAN 48 ml/min (Below low Range: >60 threshold) [...] Loving|ALENA Loving, On 05-Dec-2016 09:15 Appointment; Provider: Jessica Bee D.O. On 12-Sep-2016 08:45 Appointment; Provider: Javan Jeter M.D. On 24-Jul-2016 09:00 Appointment; Provider: Armand Edwards M.D. On 04-Jul-2016 09:15 Interventions Provided Medication ChangesDiclofenac Sodium 75 MG Oral Tablet Delayed Release - StopHydrocodone-Acetaminophen 10-325 MG Oral Tablet - CompletedLisinopril 40 MG Oral Tablet - RenewMetFORMIN HCl - 1000 MG Oral Tablet - RenewSertraline HCl - 100 MG Oral Tablet - Renew Instructions Name Dates Details Instructions not documented Encounters Appointment; Jessica Bee D.O. On 06-Jun-2016 Encounter [...] Problem not documented 09:30 Appointment; Ramon Valentin M.D.|JannethC.SMaegan|ALENA Loving|ALENA Loving, On 2014 Encounter Diagnosis: Problem not documented 11:15 Appointment; Jessica Bee D.O. On 13-Oct-2014 Encounter Diagnosis: Problem not documented 09:30 Appointment; Javan Jeter M.D. On 19-Aug-2014 Encounter Diagnosis: Problem not documented 09:15 Appointment; Jessica Bee D.O. On 09-Jul-2014 Encounter Diagnosis: Problem not documented 09:30 Appointment; Javan Jeter M.D. On 08-Jul-2014 Encounter Diagnosis: Problem not documented 09:15 Appointment; Ramon Valentin M.D.|JannethC.SMaegan|ALENA Loving|Inder,ALENA, On 2013 Encounter Diagnosis: Problem not documented 11:30 Appointment; Ramon Valentin M.D.|JannethC.SMaegan|MANAS Loving FACS, On 2013 Encounter Diagnosis: Problem not documented 07:00"
--- OUTSIDE RECORDS SUMMARY | 2017-06-02 13:09 | External Medical Summary | Summary of Care ---
:1945 Author Name Jessica Bee D.O. Address [address], [place] [id number] Care Team Providers Name Role Phone Homero Loving, ALENA, ,, M Ramon Unavailable Unavailable Jessiac Bee D.O. Unavailable Unavailable Jose Jeter M.D. [...] Active Pre-operative exam (V72.84, Z01.818) Status: Active Medications Name Dates Details MetFORMIN [...] Refills: 2 Jessica Bee D.O. Started 13-Oct-2014 [id number] GM Tube Zostavax [id number] UNT/0.65ML Subcutaneous Solution Reconstituted INJECT 0.65 ML [...] Deviation Repair History of Tonsillectomy With Adenoidectomy CBC w/ Auto Diff 7150 Ordered:20-Apr-2015 Immunization Name Dates Details Diphtheria-Tetanus Toxoids 6.7-5 LFU/0.5ML Intramuscular Injectable Administered on:12-Jan-2015 Pneumovax 23 25 MCG/0.5ML Injection Injectable Administered on:12-Jan-2015 Prevnar 13 Intramuscular Suspension Administered on:12-Jan-2015 Lot #: [id number] Tdap (Adacel) Administered on:12-Jan-2015 Lot #: [id number] Zoster (Zostavax) Administered on:20-Apr-2015 Family History Mother [...] Status: Results Date Description Value Details 19-Apr-2015 10:28 BASIC METABOLIC PROFILE Comments: Items were attached to this order: C7 Fastin hours 1210 SODIUM 139 mmol/L (Better) Range: 133-144 [...] ml/min Range: >60 (Better) EST GFR, NON-AFR [place] 57 ml/min (Below low Range: >60 threshold) Comments: EST GFR is reported in ml/min per 1.73 m2 of body surface area. For -Greenlandic, please multiple result by 1.2.----- BUN:CREATININE RATIO [...] 15:06 X CHEST PA & LAT (Better) Plan of Care Planned Observations Name [...]
--- OUTSIDE RECORDS SUMMARY | 2017-06-02 13:09 | External Medical Summary | Summary of Care ---
:1945 Author Name Jessica Bee D.O. Address [address] [facility] [place], [place] [id number] Care Team Providers Name Role Phone Homero [...] for prophylactic measure (V07.9, Z41.8) Status: Active Osteoarthritis of knee (715.36, M17.9) Status: Active Peripheral neuropathy (356.9, G62.9) Status: Active Dysuria (788.1, R30.0) Status: Active Orthopedic aftercare for joint replacement (V54.81, Z47.1) Status: Active Post-op pain (338.18, G89.18) Status: Active S/P knee replacement (V43.65, Z96.659) [...] Incomplete bladder emptying (788.21, R33.9) Status: Active Tinea corporis (110.5, B35.4) Status: Active Edema (782.3, R60.9) Status: Active Acute postoperative pain (338.18, G89.18) Status: Active Medications Name [...] Bee D.O. Started 20-Apr-2014 ActiveAspirin 81 MG TABS TAKE 1 TABLET DAILY. Refills: 0 Started [...] Refills: 2 Jessica Bee D.O. Started 10-Jun-2014 ActiveClotrimazole-Betamethasone 1-0.05 % External Cream APPLY AND RUB IN A THIN FILM TO AFFECTED AREAS TWO TIMES A DAY (MORNING AND EVENING) Quantity: 1 Refills: 2 Jessica Bee D.O. Started 13-Oct-2014 Goyfrk52 GM Tube Furosemide 20 MG Oral Tablet TAKE 1 TABLET DAILY prn swelling legs. Quantity: 90 Refills: 3 Jessica Bee D.O. Started 13-Oct-2014 ActiveZostavax [id number] UNT/0.65ML Subcutaneous Solution Reconstituted INJECT 0.65 ML [...] With Adenoidectomy History of Total Knee Replacement Left History of Total Knee Arthroplasty History of Total Knee Replacement Right Procedures not documented Immunization Name Dates Details Diphtheria-Tetanus Toxoids 6.7-5 LFU/0.5ML Intramuscular Injectable Administered on:12-Jan-2015 Pneumovax 23 25 MCG/0.5ML Injection Injectable Administered on:12-Jan-2015 Prevnar 13 Intramuscular Suspension Administered on:12-Jan-2015 Lot #: [id number] Tdap (Adacel) Administered on:12-Jan-2015 Lot #: [id number] Zoster (Zostavax) Administered on:20-Apr-2015 Family History Mother Name Dates Details Family history of cardiac disorder (V17.49, Z82.49) Status: Active Family history of diabetes mellitus (V18.0, Z83.3) Status: Active Father Name Dates Details Family [...] Encounter Diagnosis: Problem not documented 07:30 Appointment; Rmaon Valentin On 11-Jun-2014 Encounter Diagnosis: Problem not [...]
--- OUTSIDE RECORDS SUMMARY | 2017-06-02 13:09 | External Medical Summary | Summary of Care ---
:1945 Author Name James Jurado Address [address], [place] [id number] Care Team Providers Name Role Phone Homero [...] Refills: 2 Jessica Bee D.O. Started 13-Oct-2014 Hwdyxo41 GM Tube Zostavax [id number] UNT/0.65ML Subcutaneous Solution Reconstituted INJECT 0.65 ML [...] Left ORTHO KNEE LEFT (3 VIEWS ONLY) Ordered:15-Jul-2015 Immunization Name Dates Details Diphtheria-Tetanus Toxoids 6.7-5 LFU/0.5ML Intramuscular Injectable Administered on:12-Jan-2015 Pneumovax 23 25 MCG/0.5ML Injection Injectable Administered on:12-Jan-2015 Prevnar 13 Intramuscular Suspension Administered on:12-Jan-2015 Lot #: [id number] Tdap (Adacel) Administered on:12-Jan-2015 Lot #: [id number] Zoster (Zostavax) Administered on:20-Apr-2015 Family History Mother [...] Javan Jeter On 24-Jul-2016 09:00 Appointment; Provider: Ramon Valentin On 07-Dec-2015 09:45 Appointment; Provider: Jessica Bee On 27-Jul-2015 13:15 Appointment; Provider: Javan Jeter On 27-Apr-2015 07:00 Appointment; Provider: Javan Jeter On 26-May-2014 07:45 Instructions Instructions not documented Encounters Appointment; Javan Jeter On 21-Jul-2015 Encounter Diagnosis: [...]
--- OUTSIDE RECORDS SUMMARY | 2017-06-02 13:09 | External Medical Summary ---
:1945 Author Name GENERATED, SYSTEM Care Team Providers Name Role Phone DO PAN ROBERT Primary Care Provider Unavailable Reason For Visit Reason for Visit from 04/27/2015 6:35 AM:Pt Stated Reason for Adm : "left total knee" Chief Complaint OSTEOARTHRITIS OF KNEE,LEFT TOTAL KNEE ARTH Social History Social History from 04/29/2015 3:46 PM:Tobacco Use? : Never SmokerSocial History from 04/27/2015 6:35 AM:Tobacco Use? : Never Smoker Functional Status Functional Status from 04/30/2015 7:20 AM:LOC : AlertOriented To : Person,Place, Time,EventWeight Bearing Status : FullAssist Level : Partial# Assists : 1Functional Status from 04/29/2015 7:45 PM:LOC : AlertOriented To : Person,Place, Time,EventWeight Bearing Status : FullAssist Level : Partial# Assists : 1Functional Status from 04/29/2015 4:15 PM:# Assists : 2Functional Status from 12:05 PM:# Assists : 2Functional Status from 04/29/2015 8:40 AM:LOC : AlertOriented To : Person,Place,TimeWeight Bearing Status : FullAssist Level : Partial# Assists : 2Functional Status from 04/28/2015 7:38 PM:LOC : AlertOriented To : Person,Place,Time,EventWeight Bearing Status : FullAssist Level : Partial# Assists : 1Functional Status from 04/28/2015 4:45 PM:# Assists : 1Functional Status from 04/28/2015 2:52 PM:# Assists : 1Functional Status from 04/28/2015 10:05 AM:Oriented To : Person,Place,Time,EventFunctional Status from 9:09 AM:Oriented To : Person,Place,Time,EventFunctional Status from 7:56 AM:LOC : AlertOriented To : Person,Place,Time,EventWeight Bearing Status : FullAssist Level : Partial# Assists : 1Functional Status from 2014 7:25 PM:LOC : AlertOriented To : Person,Place,Time,EventWeight Bearing Status : FullAssist Level : Partial# Assists : 2Functional Status from 2014 10:35 AM:LOC : AlertOriented To : Person,Place,Time,EventWeight Bearing Status : FullAssist Level : Partial# Assists : 2Functional Status from 2014 9:19 AM:LOC : AlertFunctional Status from 04/27/2015 9:15 AM:LOC : DrowsyFunctional Status from 04/27/2015 6:35 AM:LOC : AlertOriented To : Person, Place,Time,EventWeight Bearing Status : FullAssist Level : Independent# Assists : Independent Vital Signs Hospital Vital Signs from 04/30/2015 7:16 AM:Height : 5/4 ft,inTemperature : 98.2 FPulse : 80Respirations : 20BP : 121/53Hospital Vital Signs from 04/30/2015 3:14 AM:Height : 5/4 ft,inTemperature : 99.8 FPulse : 77Respirations : 20BP : 122/60Hospital Vital Signs from 04/29/2015 10:54 PM:Height : 5/4 ft, inTemperature : 99.0 FPulse : 81Respirations : 20BP : 125/59Hospital Vital Signs from 04/29/2015 3:34 PM:Height : 5/4 ft,inTemperature : 98.4 FPulse : 77Respirations : 20BP : 109/50Hospital Vital Signs from 04/29/2015 6:44 AM: Height : 5/4 ft,inTemperature : 97.2 FPulse : 75Respirations : 20BP : 128/ 59Hospital Vital Signs from 04/29/2015 3:46 AM:Height : 5/4 ft,inTemperature : 98.1 FPulse : 70Respirations : 20BP : 131/60Hospital Vital Signs from 04/28/2015 10:57 PM:Height : 5/4 ft,inTemperature : 100.9 FPulse : 79Respirations : 20BP : 131/63Hospital Vital Signs from 04/28/2015 2:53 PM:Height : 5/4 ft,inTemperature : 97.4 FPulse : 72Respirations : 18BP : 143/67Hospital Vital Signs from 2014 11:32 AM:Height : 5/4 ft,inTemperature : 98.7 FPulse : 72Respirations : 18BP : 178/77Hospital Vital Signs from 04/28/2015 9:56 AM:Height : 5/4 ft, inHospital Vital Signs from 04/28/2015 8:00 AM:Respirations : 17Hospital Vital Signs from 04/28/2015 7:56 AM:Heart Rate : 77Hospital Vital Signs from 04/28/2015 7:19 AM:Height : 5/4 ft,inTemperature : 99.0 FPulse : 77Respirations : 16BP : 134/63Hospital Vital Signs from 04/28/2015 6:58 AM:Respirations : 19Hospital Vital Signs from 04/28/2015 6:47 AM:Pulse : 85Respirations : 12Hospital Vital Signs from 04/28/2015 6:30 AM:Height : 5/4 ft,inTemperature : 99.3 FHospital Vital Signs from 04/28/2015 3:13 AM:Height : 5/4 ft,inTemperature : 99.8 FPulse : 78Respirations : 18BP : 135/69Hospital Vital Signs from 04/28/2015 3:00 AM: Pulse : 73Respirations : 19Hospital Vital Signs from 04/28/2015 2:36 AM: Respirations : 23Hospital Vital Signs from 04/27/2015 10:52 PM:Respirations : 22Hospital Vital Signs from 04/27/2015 10:38 PM:Pulse : 72Respirations : 22Hospital Vital Signs from 04/27/2015 10:11 PM:Height : 5/4 ft,inTemperature : 98.9 FPulse : 71Respirations : 20BP : 146/65Hospital Vital Signs from 04/27/2015 8:29 PM:Height : 5/4 ft,inTemperature : 98.5 FPulse : 73Respirations : 18BP : 154/69Hospital Vital Signs from 04/27/2015 7:40 PM:Pulse : 76Respirations : 17Hospital Vital Signs from 04/27/2015 6:49 PM:Respirations : 18Hospital Vital Signs from 04/27/2015 5:25 PM:Respirations : 16Hospital Vital Signs from 2014 2:45 PM:Pulse : 71Respirations : 17Hospital Vital Signs from 04/27/2015 2: 34 PM:Height : 5/4 ft,inTemperature : 96.9 FPulse : 68Respirations : 16BP : 145/ 66Hospital Vital Signs from 04/27/2015 1:34 PM:Height : 5/4 ft,inPulse : 72Respirations : 16BP : 142/64Hospital Vital Signs from 04/27/2015 12:30 PM: Height : 5/4 ft,inPulse : 93Respirations : 16BP : 108/54Hospital Vital Signs from 04/27/2015 12:00 PM:Height : 5/4 ft,inPulse : 84Respirations : 16BP : 112/ 57Hospital Vital Signs from 04/27/2015 11:39 AM:Height : 5/4 ft,inPulse : 78Respirations : 16BP : 120/57Hospital Vital Signs from 04/27/2015 11:15 AM: Height : 5/4 ft,inPulse : 79Respirations : 16BP : 134/58Hospital Vital Signs from 04/27/2015 11:00 AM:Height : 5/4 ft,inPulse : 83Respirations : 16BP : 143/ 67Hospital Vital Signs from 04/27/2015 10:45 AM:Height : 5/4 ft,inPulse : 80Respirations : 16BP : 155/57Hospital Vital Signs from 04/27/2015 10:32 AM: Height : 5/4 ft,inTemperature : 96.7 FPulse : 90Respirations : 16BP : 177/ 75Hospital Vital Signs from 04/27/2015 10:31 AM:Respirations : 16Hospital Vital Signs from 04/27/2015 10:00 AM:Temp : 98Heart Rate : 98Resp Rate : 16Systolic BP (mmHg) : 142Diastolic BP (mmHg) : 71Mean BP (mmHg) : 96O2 Saturation (%) : 95Hospital Vital Signs from 04/27/2015 9:55 AM:Heart Rate : 100Resp Rate : 17Systolic BP (mmHg) : 135Diastolic BP (mmHg) : 76Mean BP (mmHg) : 109O2 Saturation (%) : 99Hospital Vital Signs from 04/27/2015 9:50 AM:Heart Rate : 95Resp Rate : 16Systolic BP (mmHg) : 129Diastolic BP (mmHg) : 70Mean BP (mmHg) : 97O2 Saturation (%) : 98Hospital Vital Signs from 04/27/2015 9:45 AM:Temp : 98.4Heart Rate : 101Resp Rate : 20Systolic BP (mmHg) : 157Diastolic BP (mmHg) : 74Mean BP (mmHg) : 99O2 Saturation (%) : 98Hospital Vital Signs from 04/27/2015 9 :40 AM:Heart Rate : 102Resp Rate : 10Systolic BP (mmHg) : 150Diastolic BP (mmHg ) : 71Mean BP (mmHg) : 108O2 Saturation (%) : 98Hospital Vital Signs from 2014 9:35 AM:Heart Rate : 123Resp Rate : 23Systolic BP (mmHg) : 134Diastolic BP (mmHg) : 67Mean BP (mmHg) : 91O2 Saturation (%) : 93Hospital Vital Signs from 9:30 AM:Temp : 97.2Heart Rate : 92Resp Rate : 22Systolic BP (mmHg) : 135Diastolic BP (mmHg) : 62Mean BP (mmHg) : 91O2 Saturation (%) : 100Hospital Vital Signs from 04/27/2015 7:31 AM:Height : 5/4 ft,inPulse : 61Respirations : 16BP : 141/69Hospital Vital Signs from 04/27/2015 6:35 AM:Weight : 94.5/ kgHeight : 5/4 ft,inHospital Vital Signs from 04/27/2015 5:48 AM:Weight : 94.9/ kgHeight : 5/4 ft,inTemperature : 98.9 FPulse : 70Respirations : 18BP : 133/61 Results Chemistry from 04/30/2015 4:48 [id number] MMOL/L L (136-145 MMOL/L) POTASSIUM4.1 MMOL/L (3.5-5.1 MMOL/L) BLIYNBNV82 MMOL/L L (98-107 MMOL/L) MPF496.8 MMOL/L (21.0-32.0 MMOL/L) ANION GAP6.2 MMOL/L L (8.0-16.0 MMOL/L) BUN21 MG/DL H (7-18 MG/DL) CREATININE1.33 MG/DL H (0.70-1.30 MG/DL) BUN/CREATININE RATIO15.8 (9.1-17.0 ) ESBJQKP449 MG/DL H (65-99 MG/DL) GFR EST NON AFR FTLSZIII18 ML/MIN GFRA EST AFR AMER63 ML/MIN CALCIUM9.2 MG/DL (8.5-10.1 MG/DL)Chemistry from 04/29/2015 5:07 FSRSYSAR070 MMOL/ L (136-145 MMOL/L) POTASSIUM4.0 MMOL/L (3.5-5.1 MMOL/L) VOLUUFSI295 MMOL/L (98-107 MMOL/L) SGC018.6 MMOL/L (21.0-32.0 MMOL/L) ANION GAP7.4 MMOL/L L (8.0-16.0 MMOL/L) BUN15 MG/DL (7-18 MG/DL) CREATININE1.19 MG/DL (0.70-1.30 MG/DL) BUN/CREATININE RATIO12.6 (9.1-17.0 ) OXOYBEB763 MG/DL H (65-99 MG/DL) GFR EST NON AFR NXGRWSFO30 ML/MIN GFRA EST AFR AMER72 ML/MIN CALCIUM8.7 MG/DL (8.5-10.1 MG/DL)Chemistry from 04/28/2015 4:48 XCGNFENG648 MMOL/ L (136-145 MMOL/L) POTASSIUM4.5 MMOL/L (3.5-5.1 MMOL/L) IOAYYMFZ340 MMOL/L (98-107 MMOL/L) BMP359.2 MMOL/L (21.0-32.0 MMOL/L) ANION GAP2.8 MMOL/L L (8.0-16.0 MMOL/L) BUN14 MG/DL (7-18 MG/DL) CREATININE1.24 MG/DL (0.70-1.30 MG/DL) BUN/CREATININE RATIO11.3 (9.1-17.0 ) NUQSJOT808 MG/DL H (65-99 MG/DL) GFR EST NON AFR JCCYNYJN08 ML/MIN GFRA EST AFR AMER68 ML/MIN CALCIUM8.1 MG/DL L (8.5-10.1 MG/DL)Hematology from 04/30/2015 4:48 AMHEMOGLOBIN9.5 G/DL L (12.5-16.3 G/DL) JYFHGPXKFV20.0 % L (36.7-47.1 %)Hematology from 04/29/2015 5:07 OSJYMALVUXJE88.4 G/DL L (12.5-16.3 G/DL) ALIENNBVIF51.7 % L (36.7-47.1 %)Hematology from 04/28/2015 4:48 LPCOIECNYAFT01.5 G/DL L (12.5-16.3 G/DL) CBLNAKFARC78.9 % L (36.7-47.1 %)Urinalysis from 04/28/2015 4:38 AMURINE COLORSTRAW (STRAW/YELL/DK YELL ) URINE APPEARANCECLEAR (CLEAR ) URINE PH5.5 (5.0-8.0 ) URINE SPECIFIC GRAVITY1.010 (<=1.005->=1.030 ) URINE GLUCOSENEGATIVE MG/DL (NEGATIVE MG/DL) URINE BILIRUBINNEGATIVE (NEGATIVE ) URINE KETONESNEGATIVE MG/DL (NEGATIVE MG/DL) URINE BLOODLARGE A (NEGATIVE ) URINE PROTEINNEGATIVE MG/DL (NEGATIVE MG/DL) URINE UROBILINOGEN0.2 EU/DL (0.2-1.0 EU/DL) URINE NITRITESNEGATIVE (NEGATIVE ) *URINE LEUKOCYTESNEGATIVE (NEGATIVE ) MICROSCOPIC EXAM PERFORMEDPERFORMED WBC0-1 /HPF (0-5 /HPF) BJU80-70 /HPF A (0-1 /HPF) MUCOUS THREADSMODERATE /LPF A (NEGATIVE /LPF)Blood Bank from 04/27/2015 6:25 AMANTIBODY SCREEN (Indirect Alireza)NEG ABO GROUPB RH TYPEPOSDX Radiology from 04/27/2015 9:46 AMKNEE LEFT 1/2 VIEWSHistory: Post Operative AP and Lateral, In Recovery Room . Technique: Two view knee performed. Priors: None. Findings: There are postsurgical changes of left knee arthroplasty. Alignment of the osseous structures and surgical hardware are within normal limits. No acute fractures are identified. There is a surgical drain within the anterior joint space. Impression: Postsurgical changes of left knee arthroplasty without evidence of acute fracture. Electronically signed by: Mary Mahoney MD Dictated: 04/27/2015 11:21 Problems Encounter Diagnosis Fall Risk Comment:Problem resolved by [facility] Workflow upon Discharge, Status: Resolved.Infection Risk Comment:Problem resolved by [facility] Workflow upon Discharge, Status:Resolved.Mobility Impairment Comment:Problem resolved by [facility] Workflow upon Discharge, Status:Resolved.Osteoarthritis of Knee Comment: Problem resolved by [facility] Workflow upon Discharge, Status: Resolved.Replacement of Total Knee Joint Comment:Problem resolved by [facility] Workflow upon Discharge, Status:Resolved. Encounters Encounter Diagnosis Fall Risk Comment:Problem resolved by [facility] Workflow upon Discharge, Status: Resolved.Infection Risk Comment:Problem resolved by [facility] Workflow upon Discharge, Status:Resolved.Mobility Impairment Comment:Problem resolved by [facility] Workflow upon Discharge, Status:Resolved.Osteoarthritis of Knee Comment: Problem resolved by [facility] Workflow upon Discharge, Status: Resolved.Replacement of Total Knee Joint Comment:Problem resolved by [facility] Workflow upon Discharge, Status:Resolved. Plan of Care Follow-up Appointments from 04/29/2015 3:46 PM:#1 Office appointment: : Dr. Jeter as previously scheduledAddress # 1 : [facility]: [address] [place]- or #2 Office appointment: : Dr. Pan as neededAddress # 2 : [facility]: [address] [place] - or Treatment Plan from 04/29/2015 1:45 PM:Care Management Note : rag production worker spoke to patient regarding discharge to home tomorrow; SW explained to patient a return call was received from [facility]. Patient will still have a 20% co-pay if he chooses to complete outpatient therapy at [facility] due to his BCBS not recognizing them as a outpatient service facility; they are coded as a skilled facility. ROSA provided patient with a list of outpatient therapy facilities; he spoke to his spouse via phone and they request to have outpatient PT set up at [facility]. ROSA set up initial appointment for 05/03/15 at 1100 AM. Patient and RN informed of plan.Treatment Plan from 04/29/2015 9:39 AM:Care Management Note : labs, vital signs, and therapy notes noted. Anticipate home tomorrow with outpatient therapies - Fernanda LEE working on OP therapies. Patient to continue with PT/OT today, Monitor labs daily, and keep pain controlled.Treatment Plan from 04/28/2015 3:17 PM:Care Management Note : rag production worker made referral to Lily, Investigation Officer at [facility] for patient to complete his outpatient PT there. Lily plans to contact ROSA tomorrow regarding appointment date/time for outpatient PT; ROSA faxed patient facesheet and insurance card to [facility] per request of Lily. ROSA to follow.Treatment Plan from 04/28/2015 10:45 AM:Care Management Note : rag production worker spoke to patient and patient's spouse regarding discharge plan. Patient resides in own home with spouse and plans to return at discharge. Patient and spouse deny any concerns at this time regarding discharge date for Saturday if everything is stable. ROSA discussed patient's need for outpatient PT; patient requests to have outpatient PT at [facility]. Patient reports having gone to [facility] for outpatient with last knee surgery in 2013. Patient reports having a walker at home. No other needs voiced at this time.Treatment Plan from 04/28/2015 7:24 AM:Care Management Note :Admission status-InpatientPatient admitted appropriately as inpatient for left total knee arthroplasty which is an inpatient only procedure. Care management will follow and provide clincal information to commercial insurance upon request. Procedures Completed Arthroplasty of Knee, Left, by MD RHIANNA JETER, on 04/27/2015 7:42 AMCompleted Arthroplasty of Knee, Right, by MD RHIANNA JETER, on 05/26/2014 8: 18 AMCompleted Procedure Code: 81.54 Procedure Name: not valued, on 05/26/2014 12:00 AMCompleted Procedure Code: 04.81 Procedure Name: not valued, on 2013 12:00 AM Immunizations No immunizations administered or ordered. Hospital Course Hospital Discharge Instructions How to care for yourself at home from 04/29/2015 3:46 PM:Discharge Activity : Activity as tolerated,May Shower,Do not engage in sports, heavy work or heavy lifting until your physician gives permissionDo not drive or operate machinery for: : while under the use of narcotics or until cleared by your physicianDischarge Diet : Diet as toleratedDischarge Wound Care : Keep dressings dry,Notify your physician if the following develops: redness, swelling , drainage or color of drainage changes, odor or increased pain.Call your doctor if: : Fever over 101 F or severe chills,Chest pain or other unexplained symptoms,Tingling or numbness develops,A sudden increase or decrease in weight, You have persistent or worsening symptoms,If you have Heart Failure and you gain 3 pounds within 1 week or your symptoms worsen. (Weigh at home tomorrow morning)Specific Discharge Teaching Instructions provided: : YesSpecific Discharge Teaching Instructions Reviewed: : Discharge Information Total KneeDischarge on Warfarin : No Allergies, Adverse Reactions, Alerts No Latex Allergy.No IV Contrast Allergy.No Known Drug Allergies. Medication It is the responsibility of the patient or patient sales representative metals to confirm the list of medicationswith either the patient's personal care provider or the patient's follow-up care provider to ensure the patient has an appropriate list of medications to take at home. Discharge medicationsNew medicationsHYDROCODONE/APAP 5/325 MG (NORCO 5/325) 1 TABLET=1 TABLET By Mouth Q4-6HP PRN PAIN SCALE 7, Clinician Dir:GIVE NEEDED FOR PAIN SCALE 7 Directions: oral for PAIN SCALE 7 Additional Instructions: GIVE NEEDED FOR PAIN SCALE 7 rivaroxaban (Xarelto) 10 mg Tablet, Ordered By: SOCORRO PTEERS RN Directions: 1 tablet oral daily with dinner Additional Instructions: ATTENTION NURSE/PHARMACIST: START 6-10 HOURS POST OP. Continued medicationsbethanechol chloride 25 mg Tablet, Ordered By: ZEYAD PAN DO Directions: 1 tablet oral three times a day glipiZIDE 5 mg Tablet, Ordered By: ZEYAD PAN DO Directions: 1 tablet oral daily lisinopril 40 mg Tablet, Ordered By: ZEYAD PAN DO Directions: 1 tablet oral daily magnesium 400 mg Tablet, Ordered By: ZEYAD PAN DO Directions: 2 tablet oral daily metFORMIN 1,000 mg Tablet, Ordered By: ZEYAD PAN DO Directions: 1 tablet oral twice a day with or after meal nisoldipine 40 mg Tablet Extended Release 24 hr, Ordered By: ZEYAD PAN DO Directions: 1 tablet oral daily pioglitazone 30 mg Tablet, Ordered By: ZEYAD PAN DO Directions: 1 tablet oral daily sertraline 50 mg Tablet, Ordered By: ZEYAD PAN DO Directions: 1 tablet oral daily Changed medicationscalcium carbonate-vitamin D3 (Calcium 600 with Vitamin D3) 600 mg calcium (1,500 mg)-400 unit Tablet, Ordered By: ZEYAD PAN DO Directions: 1 tablet oral twice a day Additional Instructions: one in the morning and 2 in evening tamsuLOSIN 0.4 mg capsule,extended release 24hr, Ordered By: ZEYAD PAN DO Directions: 1 capsule oral daily Stopped medicationsaspirin (Aspir-Low) 81 mg tablet,delayed release (DR/EC) Directions: 1 tablet oral daily diclofenac sodium 75 mg tablet,delayed release (DR/EC) Directions: 1 tablet oral daily
--- OUTSIDE RECORDS SUMMARY | 2017-06-02 13:09 | External Medical Summary | Summary of Care ---
:1945 Author Name Tierra Serna M.D. Address [address] [place], [place] [id number] Care Team Providers Name Role Phone Homero Loving, ALENA, ,, M Ramon Unavailable Unavailable Tierra Serna M.D. 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 Neck strain (847.0, S16.1XXA) Status: Active Peripheral vascular disease, asymptomatic (443.9, I73.9) Status: Active Hypertension (401.9, I10) Status: Active Hyperlipidemia (272.4, E78.5) Status: Active Mild mitral regurgitation by prior echocardiogram (424.0, I34.0) Status: Active Medications Name Dates Details MetFORMIN [...] Arthroplasty Cardiology Precert (within facility) Ordered: 15-Aug-2016 ORTHO KNEE LEFT (3 VIEWS ONLY) Ordered: 20-Jul-2016 Immunization Name Dates Details Diphtheria-Tetanus Toxoids 6.7-5 LFU/0.5ML INJ on: 12-Jan-2015 Pneumovax 23 25 MCG/0.5ML Injection Injectable on: 12-Jan-2015 Prevnar 13 Intramuscular Suspension on: 12-Jan-2015 Lot #: [id number] Tdap (Adacel) on: 12-Jan-2015 Lot #: [id number] Zoster (Zostavax) on: 20-Apr-2015 Family History Mother Name Dates Details Family history of diabetes mellitus (V18.0, Z83.3) Status: Active Family history of cardiac disorder (V17.49, Z82.49) Status: Active Father Name Dates Details Family history of cardiac disorder (V17.49, Z82.49) Status: Active Social History Name Dates Details - Status: Smoking Status Name Dates Details Never smoker Vital Signs Date Test Result Details 15-Aug-2016 10:26 BP Systolic 100 mm[Hg] Status: [...] 15-Aug-2016 10:31 ECG/ EKG ([facility]) Electro CardioGram Plan of Care Name Dates Details Planned Observations Cardiology Precert (within facility) On 15-Aug-2016 Intent Planned Goals not documented Planned Encounters Appointment; Provider: Jessica Bee D.O. On 26-Jun-2017 09:00 Appointment; Provider: Ramon Valentin M.D.|Marcus|ALENA Loving|ALENA Loving, On 05-Dec-2016 09:15 Appointment; Provider: Armand Edwards M.D. On 05-Nov-2016 09:15 Appointment; Provider: Jessica Bee D.O. On 12-Sep-2016 08:45 Interventions Provided Labs/Procedures/ImagingECG/ EKG ([facility]); Done: Aug 15 2016 10:31AM Instructions Name Dates Details Instructions not documented Encounters Appointment; Jessica Bee D.O. On 15-Aug-2016 Encounter [...]
--- OUTSIDE RECORDS SUMMARY | 2017-06-02 13:10 | External Medical Summary | Summary of Care ---
:1945 Author Name Jessica Bee D.O. Address [address], [place] [id number] Care Team Providers Name Role Phone Homero [...] Refills: 2 Jessica Bee D.O. Started 13-Oct-2014 [id number] GM Tube Zostavax [id number] UNT/0.65ML Subcutaneous Solution Reconstituted INJECT 0.65 ML Once Quantity: 1 Refills: 0 Jessica Bee D.O. Started 12-Jan-2015 Active1 Solution Reconstituted Vial Hydrocodone-Acetaminophen 10-325 MG Oral Tablet Take 1/2 - 1 tablet PO q 4-6 hrs PRN pain Quantity: 60 Refills: 0 Javan Jeter M.D. Started ActiveXarelto 10 MG Oral Tablet Take 1 tablet daily Quantity: 9 Refills: 0 Javan Jeter M.D. Started 26-Apr-2015 Active Allergies and Adverse Reactions Name Dates [...] 13 Intramuscular Suspension Administered on:12-Jan-2015 Lot #: [id number] Tdap (Adacel) Administered on:12-Jan-2015 Lot #: [id number] Zoster (Zostavax) Administered on:20-Apr-2015 Family History Mother [...] ml/min Range: >60 (Better) EST GFR, NON-AFR MALAYSIAN 57 ml/min (Below Range: >60 low threshold) Comments: EST GFR is reported in ml/min per 1.73 m2 of body surface area. For -Vietnamese, please multiple result by 1.2.----- BUN:CREATININE RATIO [...] Javan Jeter On 12-May-2015 09:00 Appointment; Provider: Javan Jeter On 27-Apr-2015 07:00 Appointment; Provider: Javan Jeter On 26-May-2014 07:45 Instructions Instructions not documented Encounters Appointment; Jessica Bee On 09-May-2015 Encounter Diagnosis: [...]
--- OUTSIDE RECORDS SUMMARY | 2017-06-02 13:10 | External Medical Summary | Summary of Care ---
:1945 Author Name Homero Loving, CARVAJAL M Robert Address [address], [place] [id number] Care Team Providers Name Role Phone Homero [...] Refills: 2 Jessica Bee D.O. Started 13-Oct-2014 [id number] GM Tube Allergies and Adverse Reactions Name [...] Ramon Valentin On 07-Dec-2015 09:45 Appointment; Provider: Jesscia Bee On 19-Jan-2015 09:30 Appointment; Provider: Javan [...]
--- OUTSIDE RECORDS SUMMARY | 2017-06-02 13:10 | External Medical Summary | Summary of Care ---
:1945 Author Name Jessica Bee D.O. [facility] [address] [facility] [place] [id number] Care Team Providers Name Role Phone Homero [...] wellness visit, initial (V70.0, Z00.00) Status: Active Medications Name Dates Details MetFORMIN [...] AND EVENING) Quantity: 1 Refills: 2 Rohit DJessica Marcus Start 13-Oct-2014 Active 45 GM Tube Simvastatin 20 MG Oral Tablet TAKE 1 TABLET Bedtime Quantity: 90 Refills: 3 Rohit D.Goldie.Jessica Start Active Bydureon 2 MG Subcutaneous Pen-injector INJECT 2MG SQ ONCE WEEKLY Quantity: 1 Refills: 2 Rohit D.Jessica Delacruz Start 06-Jun-2016 Active 1 Pen-injector Pen (4 [...] 13 Intramuscular Suspension on: 12-Jan-2015 Lot #: [id number] Tdap (Adacel) on: 12-Jan-2015 Lot #: [id number] Zoster (Zostavax) on: 20-Apr-2015 Family History Mother [...] low Range: >60 threshold) EST GFR, NON-AFR KAZAKH 48 ml/min (Below low Range: >60 threshold) [...] On 26-Jun-2017 09:00 Appointment; Provider: Ramon Valentin M.D.|Marcus|Inder,FACS|ALENA Loving, On 05-Dec-2016 09:15 Appointment; Provider: Jessica [...] Diagnosis: Problem not documented 09:45 Appointment; Miguel oSfia D.O. On 13-Sep-2015 Encounter Diagnosis: Problem not [...] not documented 09:30 Appointment; Ramon Valentin M.D.|Marcus|ALENA Loving|Inder,ALENA, On 2014 Encounter Diagnosis: Problem not [...] Problem not documented 11:30 Appointment; Ramon Valentin M.D.|JannethCMaeganSMaegan|MANAS Loving FACS, On 2013 Encounter Diagnosis: Problem not documented 07:00"
--- OUTSIDE RECORDS SUMMARY | 2017-06-02 13:10 | External Medical Summary | Summary of Care ---
:1945 Author Name Tierra Serna M.D. Address [address], [place] [id number] Care Team Providers Name Role Phone Tierra [...] Quantity: 90 Refills: 3 Rohit D.Goldie.Jessica Start 20-Apr-2014 Active Nisoldipine ER 20 MG Oral Tablet Extended Release 24 Hour TAKE 1 TABLET ONCE DAILY. Quantity: 90 Refills: 0 Rohit D.Goldie.Jessica Start 20-Apr-2014 Active Tamsulosin HCl - 0.4 MG Oral Capsule TAKE 1 CAPSULE BY MOUTH AT BEDTIME Quantity: 90 Refills: 3 Rohit D.Goldie.Jessica Start 29-May-2014 Active GlipiZIDE 5 MG Oral [...] 15-Jan-2017 CP Echo Ordered: 15-Jan-2017 Cardiology Precert (within facility) [...] 13 Intramuscular Suspension on: 12-Jan-2015 Lot #: [id number] Tdap (Adacel) on: 12-Jan-2015 Lot #: [id number] Zoster (Zostavax) on: 20-Apr-2015 Influenza on: 19-Oct-2016 [...] low Range: >60 threshold) EST GFR, NON-AFR IVORIAN 43 ml/min (Below low Range: >60 threshold) [...] Available for Review by Clicking ImageLink Button Plan of Care Name Dates Details Planned [...] Problem not documented 08:30 Appointment; Ramon Valentin M.D.,[facility], On 05-Dec-2016 Encounter Diagnosis: Problem not documented [...] Problem not documented 09:45 Appointment; Ramon Valentin M.D.,[facility], On 07-Dec-2015 Encounter Diagnosis: Problem not documented [...]
--- OUTSIDE RECORDS SUMMARY | 2017-06-02 13:10 | External Medical Summary | Summary of Care ---
:1945 Author Name Jessica Bee D.O. Address [address] [facility] [place], [place] [id number] Care Team Providers Name Role Phone Homero [...] ONCE DAILY Quantity: 90 Refills: 3 Rohit Cathy.Goldie.Jessica Start 31-May-2014 Active Furosemide 20 MG Oral Tablet TAKE 1 TABLET DAILY prn swelling legs. Quantity: 90 Refills: 3 Rohit Morgan.Goldie.Jessica Start 13-Oct-2014 Active Clotrimazole-Betamethasone 1-0.05 % External Cream APPLY AND RUB IN A THIN FILM TO AFFECTED AREAS TWO TIMES A DAY (MORNING AND EVENING) Quantity: 1 Refills: 2 Rohit D.Goldie.Jessica Start 13-Oct-2014 Active 45 GM Tube Simvastatin 20 MG Oral Tablet TAKE 1 TABLET Bedtime Quantity: 90 Refills: 3 Rohit Morgan.Goldie.Jessica Start Active Bydureon 2 MG Subcutaneous Pen-injector INJECT 2MG SQ ONCE WEEKLY Quantity: 1 Refills: 2 Rohit Morgan.Goldie.Jessica Start 06-Jun-2016 Active 1 Pen-injector Pen (4 Pens) Diclofenac Sodium 1 % Transdermal Gel APPLY SPARINGLY TO AFFECTED AREA(S) ONCE TO TWICE DAILY Quantity: 1 Refills: 3 Rohit Morgan.Goldie.Jessica Start 15-Aug-2016 Active 100 GM Tube Adult Aspirin EC Low Strength 81 MG Oral Tablet Delayed Release TAKE 1 TABLET DAILY DIRECTED. Refills: 0 Start 15-Aug-2016 Active Azithromycin 250 MG Oral Tablet TAKE 2 TABLETS ON DAY 1 THEN TAKE 1 TABLET A DAY FOR 4 DAYS. Quantity: 1 Refills: 0 Rohit Morgan.Goldie.Jessica Start 12-Sep-2016 Active 6 Tablet Disp Pack Benzonatate 100 MG Oral Capsule TAKE 1 CAPSULE 3 TIMES DAILY NEEDED FOR DRY COUGH ONLY Quantity: 14 Refills: 0 Rohit D.Goldie.Jessica Start 12-Sep-2016 Active Sertraline HCl - 100 MG Oral Tablet TAKE 1 TABLET DAILY. Quantity: 90 Refills: 3 Rohit Morgan.Goldie.Jessica Start 10-Jun-2014 Active Allergies and Adverse Reactions Name Dates [...] 13 Intramuscular Suspension on: 12-Jan-2015 Lot #: [id number] Tdap (Adacel) on: 12-Jan-2015 Lot #: [id number] Zoster (Zostavax) on: 20-Apr-2015 Family History Mother [...] of Care Name Dates Details Planned Observations HEMOGLOBIN A1C 3507 On 01-Sep-2016 Intent Planned Goals not documented Planned Encounters Appointment; Provider: Jessica Bee D.O. On 26-Jun-2017 09:00 Appointment; Provider: Jessica Bee D.O. On 19-Dec-2016 08:30 Appointment; Provider: Ramon Valentin M.D.|Marcus|ALENA Loving|Inder,ALENA, On 05-Dec-2016 09:15 Appointment; Provider: Armand Edwards M.D. On 05-Nov-2016 09:15 Appointment; Provider: Schedule Radiology On 14-Aug-2016 09:00 Interventions Provided Medication ChangesBydureon 2 MG Subcutaneous Pen-injector - StartLabs/Procedures /ImagingDiabetic Foot - Pulse Exam; Done:Diabetic Foot - Sensory Exam; Done: Diabetic Foot - Visual Exam; Done: Instructions Name Dates Details Instructions not documented Encounters Appointment; Armand Edwards M.D. On Encounter Diagnosis: Problem not documented 11:15 Appointment; Armand Edwards M.D. On Encounter Diagnosis: Problem not documented 10:15 Appointment; Jessica Bee D.O. On Encounter Diagnosis: Problem not documented 13:45 Appointment; Jessica Bee D.O. On 13-Dec-2015 Encounter Diagnosis: Problem not documented 09:45 Appointment; Ramon Valentin M.D.|Marcus|ALENA Loving|Inder,ALENA, On 2015 Encounter Diagnosis: Problem not [...]
[2017-06-02] MEDS ORDERED: DEXTROSE 50% SYRINGE 50ml (1 AMP) IVP ONE (13:16)
[2017-06-02 14:58] VITALS: BMI 33.2
--- NOTE | 2017-06-02 15:52 | History & Physical Report ---
<Rachna Gunter A - Last Filed: 06/02/17 15:29> History of Present Illness Date: 06/02/17 Chief complaint: altered mental status, hypoglycemia HPI: Jayro Madrid is a very pleasant 71-year-old male who presented to [facility] ED today, 06/01/17, for evaluation of visual changes and altered mental status. He reports that he lives in [place] and was driving to work at [employer] in [place] this morning when he noticed he couldn't read the speedometer but was able to see the road and other cars. After arriving safely to work, he started having difficulty concentrating and performing daily routine duties. He denies any prior symptoms including no recent illness, fevers, chill, falls, chest pain , shortness of breath, headache or syncope. Upon arrival to the ED, blood sugar was very low at 36. Vital signs revealed afebrile at 98.4, tachycardia with heart rate at 124, respiratory rate 18, blood pressure stable at 111/59 and pulse ox at 98% on room air. EKG was obtained and revealed a-flutter and he admits to a history of chronic a-fib since 02/2017. CT head was obtained and showed no acute intracranial abnormalities or hemorrhage. Labs revealed leukocytosis with WBC 11.5 wiht 3% bands, anemia with hemoglobin 9.6, platelets 272. Hypernatremia with sodium at 145, potassium 4.2, BUN 25, SCr 2.0 and glucose confirmed hypoglycemia at 32. He was given something to eat with slight improvement of BGM in the 50's. He was then given 1/2 amp of D50W with improved his BGM to 99. He has a known history of DM Type II which he is currently on glipizide, Bydureon and metformin. He follows with Dr. Bee out of [facility] and states his last A1c was in 01/2017 and was about 6.5. Troponin was <0.012 and UA was negative. Due to his hypoglycemia and risk for deterioration and complications given his age, prolonged half-life of his current medications and past medical history including CAD, hypertension and recent stent placement 3 months ago, Dr. Zambrano was contacted and he was admitted into observation status for close cardiac and neurologic monitoring, close monitoring of blood sugars and further evaluation and treatment. His length of stay is not expected to exceed more than 2 over nights. On exam, he is seen in his room, with his at the bedside. He is alert and orientated x 3 though does appear to have difficulty concentrating at times. He reports that he has had difficulty controlling his blood sugars since his stent placement in February 2017 at which time he began some new medications including atorvastatin, nisoldipine and Brilinta. Since his stent placement, he has been involved in a cardiac rehab group which checks his blood sugars prior to exercising. He does not routinely check his sugars at home. He admits that he has had to drink juice several times at rehab because his blood sugars were below 100. He states that when his sugars get low he starts to feel lightheaded. He notes his hypoglycemia episodes typically happen in the morning. On exam, his labs were reviewed, specifically his SCr. He states that when his A1c was checked in 01/2017, the clinic mentioned that his kidney function was elevated but he has never seen a scoop operator. Review of his prior medical records both at [facility] and [facility] reveal a SCr of 1.9 in 2013 at which time his GFR was 35 and A1c was 6.6. Review of Systems Comprehensive ROS: completed and no additional positive findings except those as stated - Constitutional Constitutional: Absent: chills, fever(s), increased appetite, night sweats - EEIAT Eyes: Present: change in vision. Absent: pain, photophobia Ears: Absent: ear pain Nose: Absent: nosebleeds Mouth/Throat: Present: dry mouth. Absent: sore throat, changes in swallowing, painful swallowing - Cardiovascular Cardiovascular: Present: edema. Absent: chest pain, palpitations, syncope, dyspnea on exertion, orthopnea Vascular: Present: pedal edema. Absent: unilateral swelling - Respiratory Respiratory: Absent: cough, dyspnea, hemoptysis, dyspnea on exertion, wheezing - Gastrointestinal Gastrointestinal: Absent: abdominal pain, change in bowel habits, diarrhea, nausea, vomiting - Genitourinary Genitourinary: Absent: dysuria, hematuria, testicular pain - Musculoskeletal Musculoskeletal: Absent: deformity, muscle weakness - Integumentary/Breasts Integumentary: Absent: erythema, jaundice - Neurological Neurological: Present: confusion. Absent: convulsions, focal weakness, frequent falls - Psychiatric Psychiatric: Absent: depression - Endocrine Endocrine: Absent: palpitations, polydipsia, polyphagia - Hematologic/Lymphatic Hematologic/Lymphatic: Present: easy bruising - Allergic/Immunologic Allergic/Immunologic: Present: seasonal rhinorrhea [facility] Patient Stated Medical History Diabetes, Type II. Hypertension. Hyperlipidemia. CAD. A-fib. BPH. Allergic rhinitis. Osteoarthritis. Glaucoma. Cataract. Surgical History: Bilateral knee replacement - 2013, 2014. Prostate biopsy x2, 2009. Cardiac stent placement, 02/2017. Stress test, failed, 02/2017. Family History Updates: Mother - diabetes, osteoarthritis, hypertension. Brother - diabetes, intestional cancer. Brother - diabetes, hypertension, osteoarthritis. Maternal grandmother - diabetes. Patient is estranged from his father and paternal family. - Social History Smoking status: Never smoker Substance use type: does not use Alcohol intake frequency: does not drink Housing: house Household members: spouse Current occupational status: employed ([employer]) Current residence: Apartment/Private Home Social history: PCP - Dr. Bee at [facility]. Cardio - Dr. Serna. Medications Home Medications Medication Instructions Recorded Confirmed Type Aspirin [Aspir 81] 81 mg PO HS #0 11/14/09 06/02/17 History Lisinopril 40 mg PO DAILY #0 11/14/09 06/02/17 History glipiZIDE [Glucotrol] 5 mg PO DAILY #0 11/14/09 06/02/17 History Amiodarone HCl [Pacerone] 100 mg PO HS 06/02/17 06/02/17 History Atorvastatin [Lipitor] 20 mg PO DAILY 06/02/17 06/02/17 History Clotrimazole/Betamethasone Dip 30 ml TP PRN 06/02/17 06/02/17 History [Clotrimazole-Betamethasone Lot] Diclofenac Sodium 50 mg PO PRN 06/02/17 06/02/17 History Exenatide Weekly Inj [Bydureon] 2 mg SQ Q7D 06/02/17 06/02/17 History Furosemide [Lasix] 20 mg PO DAILY 06/02/17 06/02/17 History Metformin [Glucophage] 1,000 mg PO BID 06/02/17 06/02/17 History Metoprolol Tartrate [Lopressor] 50 mg PO BID 06/02/17 06/02/17 History Nisoldipine [Sular] 20 mg PO HS 06/02/17 06/02/17 History Tamsulosin [Flomax] 0.4 mg PO HS 06/02/17 06/02/17 History Ticagrelor [Brilinta] 90 mg PO BID 06/02/17 06/02/17 History Allergies Allergy/AdvReac Type Severity Reaction Status Date / Time No Known Drug Allergies Allergy Unknown Verified 06/02/17 12:46 Exam Vital Signs: Temperature 97.3 F 06/02/17 14:35 Pulse Rate 110 H 06/02/17 14:35 Respiratory Rate 16 06/02/17 14:35 Blood Pressure 112/74 06/02/17 14:35 Pulse Oximetry 100 06/02/17 14:35 Telemetry Rhythm: A-fib with RVR, A-flutter Height/Weight/BMI: Height 5 ft 5 in Weight 199 lb 8.293 oz Body Mass Index 33.2 - Constitutional Present: no acute distress, well nourished, well developed, obese, cooperative - Routine HEENT Exam Head: Present: normocephalic, atraumatic Eye: Present: EOMI, PERRL. Absent: conjunctival icterus ENT: Present: mucous membranes dry, oropharynx clear, dentition normal - Routine Neck Exam Present: supple, full ROM, trachea midline - Routine Chest/Breast/Axilla Exam Chest wall: Absent: pacemaker - Routine Respiratory Exam Present: CTA bilaterally. Absent: stridor, wheezes, crackles - Routine Cardiovascular Exam Present: irregularly irregular - Routine Abdominal Exam Present: soft, normoactive bowel sounds, non tender, distended - Routine Extremities Exam Present: edema (1+ bilateral lower extremities.) - Routine Back/Spine/Pelvis Exam Back/Spine: Present: full ROM. Absent: CVA tenderness, vertebral tenderness - Routine Skin Exam Present: intact, dry, warm. Absent: jaundice Comments: afebrile. - Routine Neurological Exam Present: alert, oriented X3, CN II-XII intact, moving all extremities, hearing grossly intact, normal speech. Absent: facial asymmetry difficulty concentrating - Routine Psychiatric Exam Present: normal affect, cooperative. Absent: normal thought process Results - Labs CBC & Chem 7: 06/02/17 12:45 06/02/17 12:45 - Imaging and Cardiology CT scan - head Status: image reviewed by me Additional comments: 06/02/17: no acute intracranial abnormality or hemorrhage per [facility]. Assessment and Plan (1) Altered mental status Current visit: Yes Status: Acute (2) Hypoglycemia Current visit: Yes Status: Acute (3) Atrial fib/flutter, transient Current visit: Yes Status: Chronic (4) Diabetes mellitus type 2 in obese Current visit: Yes Status: Chronic DVT Prophylaxis: SCD's, other (Brilinta) Assessment and Plan: 06/02/17: [facility]. Admission. Assessment Altered mental status secondary to acute hypoglycemia, acute. Leukocytosis (WBC 11.5), present on admission, acute. Anemia (Hgb 9.6), present on admission, unspecified. Hypernatremia (Na 145) present on admission, acute. Diabetes, Type II, chronic. Hypertension, chronic. A-fib/flutter, chronic. Hyperlipidemia, chronic. Chronic Kidney Disease, stage III, chronic. CAD, chronic. BPH, chronic. Allergic rhinitis, chronic. Osteoarthritis, chronic. Glaucoma, chronic. Plan Admit to observation status under the care of Dr. Zambrano. Hypoglycemia upon arrival with BGM at 36 in ED. Was given food and 1/2 amp D50W with blood sugar improved to 99. Monitor closely with BGMs Q1 hours. Will hold home diabetic medications including glipizide, bydureon and metformin. CT head was negative. Monitor neurologic function closely in light of recent altered mental status. History of a-fib/flutter with stent placement in 02/2017. Monitor cardiac function closely on telemetry. Continue home medications for blood pressure, arrhythmia and cholesterol including amiodarone, metoprolol, atorvastatin, Lasix and nisoldipine. Brilinta for anticoagulation. Troponin on admission was negative at <0.012. Patient has history of edema and reports dry weight at ~185 lbs. Current weight at 199 lbs. Monitor weight daily. May consider additional lasix for fluid motivation. Encourage incentive spirometry for pulmonary toileting. SCr on admission was 2.0. Review of prior medical records indicates SCr of 1.9 in 2013. Suspect current SCr is close to patient's baseline. GFR 33. Would encourage outpatient follow up with scoop operator for further evaluation and close management given Stage III CKD. Will recheck BMP in AM to monitor electrolytes and renal function. Leukocytosis noted on admission with WBC 11.5 and 3% bands. Most likely secondary to stress response. No other indications of infectious process noted. UA negative. No respiratory symptoms and patient has been afebrile. Will continue to monitor closely and hold off on additional empiric treatment at this time. Anemia noted on admission with hemoglobin 9.5. Suspect anemia is secondary to chronic disease. Monitor closely for signs of bleeding given use of Brilinta and ASA. Will repeat CBC in AM to monitor blood counts given leukocytosis and anemia. Platelets stable at 272. Hypernatremia present on admission with sodium 145. Will encourage oral fluid intake and avoid IV fluids at this time given recent episode of hypoglycemia and current fluid overload. Upon discharge, patient's care will be returned to his PCP, Dr. Bee at [facility]. - Time spent with patient greater than 35 minutes Hospital Course Summary Disclaimer: The visit summary below is not to be considered part of the above Progress Note. Hospital Course: 06/02/17: [facility]. Admission. Assessment Altered mental status secondary to acute hypoglycemia, acute. Leukocytosis (WBC 11.5), present on admission, acute. Anemia (Hgb 9.6), present on admission, unspecified. Hypernatremia (Na 145) present on admission, acute. Diabetes, Type II, chronic. Hypertension, chronic. A-fib/flutter, chronic. Hyperlipidemia, chronic. Chronic Kidney Disease, stage III, chronic. CAD, chronic. BPH, chronic. Allergic rhinitis, chronic. Osteoarthritis, chronic. Glaucoma, chronic. Plan Admit to observation status under the care of Dr. Zambrano. Hypoglycemia upon arrival with BGM at 36 in ED. Was given food and 1/2 amp D50W with blood sugar improved to 99. Monitor closely with BGMs Q1 hours. Will hold home diabetic medications including glipizide, bydureon and metformin. CT head was negative. Monitor neurologic function closely in light of recent altered mental status. History of a-fib/flutter with stent placement in 02/2017. Monitor cardiac function closely on telemetry. Continue home medications for blood pressure, arrhythmia and cholesterol including amiodarone, metoprolol, atorvastatin, Lasix and nisoldipine. Brilinta for anticoagulation. Troponin on admission was negative at <0.012. Patient has history of edema and reports dry weight at ~185 lbs. Current weight at 199 lbs. Monitor weight daily. May consider additional lasix for fluid motivation. Encourage incentive spirometry for pulmonary toileting. SCr on admission was 2.0. Review of prior medical records indicates SCr of 1.9 in 2014. Suspect current SCr is close to patient's baseline. GFR 33. Would encourage outpatient follow up with scoop operator for further evaluation and close management given Stage III CKD. Will recheck BMP in AM to monitor electrolytes and renal function. Leukocytosis noted on admission with WBC 11.5 and 3% bands. Most likely secondary to stress response. No other indications of infectious process noted. UA negative. No respiratory symptoms and patient has been afebrile. Will continue to monitor closely and hold off on additional empiric treatment at this time. Anemia noted on admission with hemoglobin 9.5. Suspect anemia is secondary to chronic disease. Monitor closely for signs of bleeding given use of Brilinta and ASA. Will repeat CBC in AM to monitor blood counts given leukocytosis and anemia. Platelets stable at 272. Hypernatremia present on admission with sodium 145. Will encourage oral fluid intake and avoid IV fluids at this time given recent episode of hypoglycemia and current fluid overload. Upon discharge, patient's care will be returned to his PCP, Dr. Bee at [facility]. <Licha Zambrano - Last Filed: 06/02/17 18:45> History of Present Illness Date: 06/02/17 [facility] Patient Stated Medical History Macular Degeneration Yes Cardiac Arrhythmia Yes Hypertension Yes Diabetes Mellitus Type 2 Yes Hx Benign Prostatic Yes Hyperplasia Hx Renal Disease Yes Exam Vital Signs: Temperature 97.3 F 06/02/17 16:42 Pulse Rate 95 06/02/17 16:42 Respiratory Rate 22 06/02/17 16:42 Blood Pressure 121/74 06/02/17 16:42 Pulse Oximetry 98 06/02/17 16:42 Height/Weight/BMI: Height 1.65 m Weight 90.5 kg Body Mass Index 33.2 Results - Labs CBC & Chem 7: 06/02/17 12:45 06/02/17 12:45 Assessment and Plan (1) Hypoglycemia Current visit: Yes Status: Acute (2) Altered mental status Current visit: Yes Status: Acute (3) Diabetes mellitus type 2 in obese Problem details: Probable nephropathy Current visit: Yes Status: Chronic Assessment and Plan: I have independently evaluated and examined this patient. I reviewed the chart, the patient's history, and the TIRE SETTER/PA's documented findings as above. We discussed and formulated the assessment and plan as above with additions as below: Mr. Madrid reports occasional episodes of hypoglycemia over the past 3 months following placement of 3 stents in February and corresponding to dietary changes made thereafter. Episodes typically occur late in the day. He describes eating prior to driving to work today with onset of visual symptoms as described above followed by difficulty concentrating. Head CT was without acute pathology in the emergency room but the patient was profoundly hypoglycemic and has had recurrent hypoglycemia since arrival on the floor requiring treatment. He denied presence of nausea, palpitations, or diaphoresis with hypoglycemia while driving earlier but did become somewhat anxious regarding visual changes. When examined by myself the patient was alert and fully cooperative. Respirations nonlabored, good airflow and breath sounds clear Irregularly irregular rhythm Abdomen benign Recurrent hypoglycemia-patient at high risk for recurrent episodes over the next 24 hours due to long-acting medications in conjunction with renal insufficiency. Patient reports that abnormal renal function has only recently been reported to him so chronicity is unclear although creatinine was elevated on one occasion in 2013. Need to obtain records from Dr. Bee's office in the morning for clarification. Continue hourly blood sugars, if hypoglycemia recurs a third time requiring treatment will initiate D5 infusion overnight. Recheck A1c in a.m. EKG reviewed by myself-atrial fibrillation with rate approximately 120. Will need follow-up with cardiology to determine if amiodarone dose should be modified/discontinued and to readdress need for chronic anticoagulation. Old records reviewed, head CT reviewed by myself, discussed with ER provider, laboratory data reviewed. Hospital Course Summary Disclaimer: The visit summary below is not to be considered part of the above Progress Note.
[2017-06-02] MEDS ORDERED: ACETAMINOPHEN 650 MG SUPPOSITORY PR PRN (16:27)
[2017-06-02] MEDS ORDERED: ONDANSETRON 4 MG/2 ML INJECTION IVP PRN (16:27)
[2017-06-02] MEDS ORDERED: DEXTROSE 50% SYRINGE 50ml (1 AMP) IVP PRN (16:32)
[2017-06-02] MEDS ORDERED: CLOTRIMAZOLE/BETAMETHASONE CREAM 15gm TOP PRN (16:45)
[2017-06-02] MEDS ORDERED: ACETAMINOPHEN 325 MG TABLET PO PRN (18:31)
[2017-06-02] MEDS ORDERED: AMIODARONE 200 MG TABLET PO SCH ×2 (20:00)
[2017-06-02] MEDS: NISOLDIPINE ER 20 MG TABLET PO SCH (20:28)
[2017-06-02] MEDS: TAMSULOSIN 0.4 MG CAPSULE PO SCH (20:29)
[2017-06-02] MEDS: TICAGRELOR 90 MG TABLET PO SCH (20:29)
[2017-06-02] MEDS: ASPIRIN *EC* 81 MG TABLET PO SCH (20:30)
[2017-06-02] MEDS ORDERED: AMIODARONE HCL 100 MG PO SCH (21:00)
[2017-06-02] MEDS ORDERED: D5NS 1,000 ML IV SCH (22:00)
[2017-06-03] MEDS: D5NS 1,000 ML IV SCH ×2 (00:48→09:10)
[2017-06-03 07:31] VITALS: RESP 16
--- NOTE | 2017-06-03 08:30 | CT Scan Report ---
Indication: vision and recall changes, recent headache. NIIDM PROCEDURE: CT head/brain wo con: Encounter: Initial Comparison: None. FINDINGS: There is mild prominence of the ventricles and sulci compatible with cortical atrophy. There is no mass, mass effect, or midline shift. No evidence for intracranial hemorrhage. No intra or extra-axial fluid collections. No evidence for depressed skull fracture. There are fairly large mucous retention cysts in the maxillary sinuses bilaterally. There is a small amount of mucosal thickening of a few of the left posterior ethmoidal/sphenoidal sinuses. IMPRESSION: Mild cortical atrophy. No evidence for acute cortical infarct, intracranial hemorrhage, or mass. Scattered inflammatory changes of the paranasal sinuses described above. .
[2017-06-03] MEDS: LISINOPRIL 40 MG TABLET PO SCH (08:37)
[2017-06-03] MEDS: TICAGRELOR 90 MG TABLET PO SCH ×2 (08:38→22:06)
[2017-06-03] MEDS: FUROSEMIDE 20 MG TABLET PO SCH (08:38)
[2017-06-03] MEDS ORDERED: CLOTRIMAZOLE/BETAMETHASONE CREAM 15gm TOP SCH (09:00)
[2017-06-03] MEDS ORDERED: ATORVASTATIN 20 MG TABLET PO SCH ×2 (09:00→21:00)
[2017-06-03] MEDS: INSULIN ASPART 100unit/ml INJECTION SQ PRN (16:36)
--- NOTE | 2017-06-03 16:36 | Progress Note ---
Subjective: Mr. Madrid continue to have episodic low sugars yesterday evening requiring initiation of D5W infusion with rate later increased to 100 caballero per hour. Since that time blood sugars have progressively stabilized. Patient denies recurrent visual symptoms or other signs suggestive of hypoglycemia. Reports that he feels good this morning and denied dyspnea, chest pain, operative dictations, or nausea. His appetite is good and he is pain-free. Objective Vital signs: Temperature 97.2 F 06/03/17 15:13 Pulse Rate 111 H 06/03/17 15:13 Respiratory Rate 16 06/03/17 15:13 Blood Pressure 123/65 06/03/17 15:13 Pulse Oximetry 95 06/03/17 15:13 EXAM General-NAD, alert, fluent speech HEENT-conjunctiva clear, sclera anicteric Lungs-respirations nonlabored with good airflow, breath sounds clear Cardiac-regular rhythm, S1-S2, low-grade tachycardia present Abd-soft, nontender, bowel sounds present Ext-without edema Neuro-MAEW Psych-calm, cooperative - Results - Labs CBC & Chem 7: 06/03/17 03:58 06/03/17 03:58 Labs: Blood sugars overnight ranged from 51-121; since 7 AM glucoses been [phone]- [phone] Magnesium 1.6 A1c 6.1 Assessment and Plan (1) Hypoglycemia Current visit: Yes Status: Acute (2) Altered mental status Current visit: Yes Status: Acute (3) Diabetes mellitus type 2 in obese Problem details: Probable nephropathy Current visit: Yes Status: Chronic DVT Prophylaxis: SCD's Resuscitation Status: Full Code Assessment and Plan: Assessment: Hypoglycemia Diabetes, Type II, chronic, A1C 6.1. Altered mental status secondary to acute hypoglycemia, acute. Leukocytosis (WBC 11.5), present on admission, acute. Anemia (Hgb 9.6), present on admission, unspecified. Hypernatremia (Na 145) present on admission, resolved. Hypertension, chronic. A-fib/flutter, chronic. Hyperlipidemia, chronic. Chronic Kidney Disease, stage III, chronic. Cr 1.59 on 04/15/17 CAD, chronic. BPH, chronic. Allergic rhinitis, chronic. Osteoarthritis, chronic. Glaucoma, chronic. Plan: Recurrent hypoglycemia overnight, all diabetes medications remain on hold. D5 infusion discontinued this afternoon when blood sugars began to climb, continue to monitor closely pending stabilization of blood sugars. Anticipate need to resume some medication prior to discharge. No difficulty with mental status or ability to concentrate overnight. Outpatient records obtained from Dr. Barrientos's office indicating renal function is slightly worse now than it has been previously, reassess in a.m. Remains in A. fib/flutter. Discussed with Dr. Serna who requested that amiodarone be increased to 200 mg daily and that patient be on Lovenox short- term but discontinued without anticoagulation. Patient to follow-up with him in approximately one week for further assessment. Blood pressure stable and electrolytes have normalized. Baseline hemoglobin unknown-will refer back to Dr. Bee for further evaluation. Discussed with Dr. Serna, nursing, and case management. Outpatient records reviewed; laboratory data reviewed. Converted to inpatient status due to ongoing need to monitor blood sugars and need for IV therapy for stabilization overnight and earlier today. Hospital Course Summary Disclaimer: The visit summary below is not to be considered part of the above Progress Note. Hospital Course: 06/02/17: Admission. Assessment Hypoglycemia Altered mental status secondary to acute hypoglycemia, acute. Leukocytosis (WBC 11.5), present on admission, acute. Anemia (Hgb 9.6), present on admission, unspecified. Hypernatremia (Na 145) present on admission, acute. Diabetes, Type II, chronic. Hypertension, chronic. A-fib/flutter, chronic. Hyperlipidemia, chronic. Chronic Kidney Disease, stage III, chronic. CAD, chronic. BPH, chronic. Allergic rhinitis, chronic. Osteoarthritis, chronic. Glaucoma, chronic. Plan Admit to observation status under the care of Dr. Zambrano. Hypoglycemia upon arrival with BGM at 36 in ED. Was given food and 1/2 amp D50W with blood sugar improved to 99. Monitor closely with BGMs Q1 hours. Will hold home diabetic medications including glipizide, bydureon and metformin. CT head was negative. Monitor neurologic function closely in light of recent altered mental status. History of a-fib/flutter with stent placement in 02/2017. Monitor cardiac function closely on telemetry. Continue home medications for blood pressure, arrhythmia and cholesterol including amiodarone, metoprolol, atorvastatin, Lasix and nisoldipine. Brilinta for anticoagulation. Troponin on admission was negative at <0.012. Patient has history of edema and reports dry weight at ~185 lbs. Current weight at 199 lbs. Monitor weight daily. May consider additional lasix for fluid motivation. Encourage incentive spirometry for pulmonary toileting. SCr on admission was 2.0. Review of prior medical records indicates SCr of 1.9 in 2013. Suspect current SCr is close to patient's baseline. GFR 33. Would encourage outpatient follow up with [facility] for further evaluation and close management given Stage III CKD. Will recheck BMP in AM to monitor electrolytes and renal function. Leukocytosis noted on admission with WBC 11.5 and 3% bands. Most likely secondary to stress response. No other indications of infectious process noted. UA negative. No respiratory symptoms and patient has been afebrile. Will continue to monitor closely and hold off on additional empiric treatment at this time. Anemia noted on admission with hemoglobin 9.5. Suspect anemia is secondary to chronic disease. Monitor closely for signs of bleeding given use of Brilinta and ASA. Will repeat CBC in AM to monitor blood counts given leukocytosis and anemia. Platelets stable at 272. Hypernatremia present on admission with sodium 145. Will encourage oral fluid intake and avoid IV fluids at this time given recent episode of hypoglycemia and current fluid overload. Upon discharge, patient's care will be returned to his PCP, Dr. Bee at [facility]. 06/03/17 16:56 Recurrent hypoglycemia overnight, all diabetes medications remain on hold. D5 infusion discontinued this afternoon when blood sugars began to climb, continue to monitor closely pending stabilization of blood sugars. Anticipate need to resume some medication prior to discharge. No difficulty with mental status or ability to concentrate overnight. Outpatient records obtained from Dr. Barrientos's office indicating renal function is slightly worse now than it has been previously, reassess in a.m. Remains in A. fib/flutter. Discussed with Dr. Serna who requested that amiodarone be increased to 200 mg daily and that patient be on Lovenox short- term but discontinued without anticoagulation. Patient to follow-up with him in approximately one week for further assessment. Blood pressure stable and electrolytes have normalized. Baseline hemoglobin unknown-will refer back to Dr. Bee for further evaluation.
[2017-06-03] MEDS ORDERED: AMIODARONE 200 MG TABLET PO SCH (16:48)
[2017-06-03] MEDS: ENOXAPARIN 40 MG/0.4 ML INJECTION SQ SCH (17:14)
[2017-06-03] MEDS: NISOLDIPINE ER 20 MG TABLET PO SCH (22:06)
[2017-06-03] MEDS: TAMSULOSIN 0.4 MG CAPSULE PO SCH (22:07)
[2017-06-03] MEDS: ASPIRIN *EC* 81 MG TABLET PO SCH (22:07)
[2017-06-04 01:25] VITALS: O2SAT 96
[2017-06-04 07:43] VITALS: BP 125/59; PULSE 110; TEMP 97.3
[2017-06-04] MEDS: TICAGRELOR 90 MG TABLET PO SCH (08:22)
[2017-06-04] MEDS: LISINOPRIL 40 MG TABLET PO SCH (08:22)
[2017-06-04] MEDS: ENOXAPARIN 40 MG/0.4 ML INJECTION SQ SCH (08:23)
[2017-06-04] MEDS: FUROSEMIDE 20 MG TABLET PO SCH (08:23)
[2017-06-04] MEDS: INSULIN ASPART 100unit/ml INJECTION SQ PRN (10:29)
--- NOTE | 2017-06-04 11:10 | Discharge Instructions ---
Discharge Plan - Med Rec/Dispo Referrals/Follow Up: ZEYAD PAN DO [Family Provider] - 1 Week Jenny Instructions: Encephalopathy (GEN), Hypoglycemia in a Person with Diabetes (GEN) Prescriptions: New Amiodarone [Pacerone] 200 mg PO PM #30 tab Continue Aspirin [Aspir 81] 81 mg PO HS #0 Furosemide [Lasix] 20 mg PO DAILY Metoprolol Tartrate [Lopressor] 50 mg PO BID Exenatide Weekly Inj [Bydureon] 2 mg SQ Q7D Atorvastatin [Lipitor] 20 mg PO DAILY Nisoldipine [Sular] 20 mg PO HS Metformin [Glucophage] 1,000 mg PO BID Lisinopril 40 mg PO DAILY #0 Diclofenac Sodium 50 mg PO PRN Ticagrelor [Brilinta] 90 mg PO BID Tamsulosin [Flomax] 0.4 mg PO HS Clotrimazole/Betamethasone Dip [Clotrimazole-Betamethasone Lot] 30 ml TP PRN Discontinued Amiodarone HCl [Pacerone] 100 mg PO HS glipiZIDE [Glucotrol] 5 mg PO DAILY #0 Discharge Instructions/Outpatient Orders: Final Provider Discharge Instructions Location: Determined By Patient - Disposition 01 Discharged Home, Self-Care
--- NOTE | 2017-06-04 21:04 | Discharge Summary ---
Discharge Information Date of admission: 06/03/17 13:58 Anticipated date of discharge: 06/04/17 Attending Physician: Licha Zambrano MD Primary care physician: ZEYAD PAN - Discharge Diagnosis (1) Hypoglycemia Status: Acute (2) Altered mental status Status: Acute (3) Diabetes mellitus type 2 in obese Status: Chronic - Laboratory Labs: On admission (06/02/17 white count was slightly elevated at 11.5 with differential 76 neutrophils, 3 bands, 15 lymphocytes, 6 monocytes. Hemoglobin 9.6. Admission electrolytes were notable only for bicarbonate of 19, creatinine was 2.0 with GFR of 33. Initial blood sugar was 32. Liver enzymes unremarkable, troponin <0.012. A1c 6.1 on 06/03/17 06/04/17 03:54 - Radiology Radiology: CT head on admission demonstrated: There is mild prominence of the ventricles and sulci compatible with cortical atrophy. There is no mass, mass effect, or midline shift. No evidence for intracranial hemorrhage. No intra or extra-axial fluid collections. No evidence for depressed skull fracture. There are fairly large mucous retention cysts in the maxillary sinuses bilaterally. There is a small amount of mucosal thickening of a few of the left posterior ethmoidal/sphenoidal sinuses. History of Present Illness HPI: Jayro Madrid is a very pleasant 71-year-old male who presented to [facility] [place] ED today, 06/01/17, for evaluation of visual changes and altered mental status. He reports that he lives in [place] and was driving to work at [employer] this morning when he noticed he couldn't read the speedometer but was able to see the road and other cars. After arriving safely to work, he started having difficulty concentrating and performing daily routine duties. He denies any prior symptoms including no recent illness, fevers, chill, falls, chest pain , shortness of breath, headache or syncope. Upon arrival to the ED, blood sugar was very low at 36 [address] Accu-Chek . CT head was obtained and showed no acute intracranial abnormalities or hemorrhage. He was given something to eat with slight improvement of BGM in the 50's. He was then given 1/2 amp of D50W with improved his BGM to 99. He has a known history of DM Type II which he is currently on glipizide, Bydureon and metformin. He follows with Dr. Pan out of [facility] and states his last A1c was in 01/2017 and was about 6.5. Patient was hospitalized due to recurrent hypoglycemia in the emergency room. Hospital Course This is a general summary of the patient's hospital course. For more details refer to the complete medical record. Hospital course: Assessment Hypoglycemia, recurrent Altered mental status secondary to acute hypoglycemia, acute. Leukocytosis (WBC 11.5), present on admission, acute. Anemia (Hgb 9.6), present on admission, unspecified. Hypernatremia (Na 145) present on admission, acute. Diabetes, Type II, chronic. Hypertension, chronic. A-fib/flutter, chronic. Hyperlipidemia, chronic. Chronic Kidney Disease, stage III, chronic. CAD, chronic. BPH, chronic. Allergic rhinitis, chronic. Osteoarthritis, chronic. Glaucoma, chronic. Hospital course Mr. Madrid was initially admitted under observation status with hourly monitoring of blood sugars. Shortly after arrival on the floor blood sugar again dropped from 81 to 42 requiring retreatment per protocol. It should be noted patient was asymptomatic at this time. Over the next 6 hours blood sugar dropped into the low 50s repetitively necessitating initiation of D5W infusion overnight through midday on 06/03. All home diabetes agents were held through the hospitalization. Frequency of blood glucose monitoring decreased as blood sugar stabilized. He remained off of usual medications through 06/04 when blood sugars stabilized adequately that it was felt he could safely resume bydureon and metformin. Glipizide was discontinued due to risk of recurrent hypoglycemia and patient's description of preceding episodes of hypoglycemia. Worsening renal failure is likely contributing to increasing frequency of events. I've asked that he follow-up with Dr. Pan within approximately 1 week for reassessment. The patient has diabetic nephropathy with chronic kidney disease which appears to be worsening based on outpatient labs obtained from [facility]. He is referred back to Dr. Pan for further evaluation and to determine if appropriate to refer to nephrology to initiate care. Moderate normocytic anemia is also present, this too is referred back to the patient's primary care physician for further assessment. On admission the patient was incidentally noted to be in atrial fibrillation/ flutter with weightbearing from approximately 70 to about 110. Typically heart rate was slightly over 100. 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 Patient was unaware of palpitations. On the morning of 06/04 fasting blood sugar was 146. Patient reported feeling well and denied any visual blurring or difficulty concentrating. Examination was unremarkable other than irregular cardiac rhythm. Patient was alert and respirations were nonlabored with clear breath sounds. Creatinine has improved from 2.0 on admission to 1.6. Patient was felt stable for discharge at this time with plans to follow-up with Dr. Pan and Dr. Serna at [facility] in approximately 1 week. Discharge medications have been reviewed with the patient. Time spent with patient: discharge greater than 30 minutes Discharge Plan - Med Rec/Dispo Referrals/Follow Up: ZEYAD PAN DO [Family Provider] - 1 Week Jenny Instructions: Hypoglycemia in a Person with Diabetes (GEN) Prescriptions: New Amiodarone [Pacerone] 200 mg PO PM #30 tab Continue Aspirin [Aspir 81] 81 mg PO HS #0 Furosemide [Lasix] 20 mg PO DAILY Metoprolol Tartrate [Lopressor] 50 mg PO BID Exenatide Weekly Inj [Bydureon] 2 mg SQ Q7D Atorvastatin [Lipitor] 20 mg PO DAILY Nisoldipine [Sular] 20 mg PO HS Metformin [Glucophage] 1,000 mg PO BID Lisinopril 40 mg PO DAILY #0 Diclofenac Sodium 50 mg PO PRN Ticagrelor [Brilinta] 90 mg PO BID Tamsulosin [Flomax] 0.4 mg PO HS Clotrimazole/Betamethasone Dip [Clotrimazole-Betamethasone Lot] 30 ml TP PRN Discontinued Amiodarone HCl [Pacerone] 100 mg PO HS glipiZIDE [Glucotrol] 5 mg PO DAILY #0 Discharge Instructions/Outpatient Orders: Final Provider Discharge Instructions Location: Determined By Patient - Disposition 01 Discharged Home, Self-Care
== END 2017-06-04 12:50 | disposition home or self-care (01) | DRG 638 ==
LOC: ED 12:16 → MED 12:16
PROVIDERS: ADMIT Internal Medicine; ATTEND Internal Medicine